=== PATIENT | female | born 1975 | race Caucasian/White ===

== ENCOUNTER 2016-06-16 21:34 | Emergency (ER) | payer OTHER ==
[~2016-06-16 21:34] MED LIST: ATENOLOL100 MG PO; B COMPLEX PO; B-125000 MC1 PO; BACTRIM DS1 TAB PO; BUSPIRONE HCL15 MG PO; CALCIUM CARBON500 MG PO; CELEXA20 MG PO; CEPHALEXIN250 MG PO; CETIRIZINE HCL10 MG PO; CYCLOBENZAPRINE5 MG PO; FERROUS SULFAT325 M1 PO; FLUTICASONE PR50 MCG; MULTI VITAMIN/MINERA PO; PANTOPRAZOLE SO40 MG PO; PERCOCET1 TA1 PO; VITAMIN C PO; VITAMIN C TR500 M1 PO; VITAMIN D-31000 UNIT PO
--- NOTE | 2016-06-17 04:05 | ED NURSING NOTES ---
Clinical Report - Nurses [facility] [address] [place] [address] 06/16/2016 21:35 [id number] Triage time 22:04 Jun 16 2016. Acuity: LEVEL 3. Alert. No acute distress. --22:16 Deirdre Rojas R.N. 22:04 06/16/16. BP: 137/97. HR: 70. RR: 18. O2 saturation: 99%. Temp: 98.2 F. Pain level now 5/10. --22:16 Deirdre Rojas R.N. Chief Complaint: (hemturia). --04:21 Praveena Jeong R.N. Weight: 104.3 kg estimated. Height/Length: 65 inches Estimated. BMI: 38.3. --22:03 Praveena Jeogn R.N. Medications Atenolol Oral 100 mg, daily. BusPIRone HCl Oral (10 mg AM; 15 mg PM). Celexa Oral 20 mg, at bedtime. Loratadine Oral 10 mg, daily. Nasacort AQ Nasal 2 sprays, 2x a day. ProAir HFA Inhalation. Qvar Inhalation (Aerosol Solution 40 mcg/act), as needed. --22:13 Deirdre Rojas R.N. Medication/allergy information source: the patient. --22:16 Deirdre Rojas R.N. Allergies Cipro. Definite Severe(swelling) (of the tongue) Sulfa Antibiotics. Severe(swelling) (of the tongue) --22:13 Deirdre Rojas R.N. History Arrived by private vehicle. Historian: patient. Primary physician ([facility]). ( Hematuria 3-4 days. Very obvious in the toilet, bright red. Wiping it is bright red, like a period. No urgency, no dysuria. However is having right sided back pain. Pt has had stones in the past that required Lithotripsy.). Onset. (3-4 days). She has had hematuria. Treatment RATING EXAMINER: Took ibuprofen. PAST MEDICAL HX: Immunizations: has received pneumonia vaccine; seasonal influenza. SOCIAL HX: Never smoker. No alcohol use or drug use. No infectious disease exposure. FALL RISK ASSESSMENT: Fall risk assessment completed. No fall risk identified. FUNCTIONAL ASSESSMENT: Functional assessment: no impairments noted. LEARNING NEEDS ASSESSMENT: The learning needs assessment revealed no barriers. SKIN INTEGRITY ASSESSMENT: Skin integrity risk assessment completed. No skin integrity risk identified. --22:16 Deirdre Rojas R.N. PROBLEMS: Tendonitis. Back Injury. Sciatica. Back Pain. Fever. Headache. Abdominal Muscle Strain. Hypokalemia. Atypical Chest Pain. Gastroenteritis. Diverticulitis. Ovarian Cyst. Gastroesophageal Reflux Disease. Pancreatitis. Anxiety Reaction. Depression. Asthma. Bronchitis. Lung Disease. Immunizations. Hypertension. UTI - Urinary Tract Infection. Abdominal Pain. Diabetes Mellitus. LNMP - Last Normal Menstrual Period. --22:16 Deirdre Rojas R.N. ADDITIONAL SURGERIES: Adenoidectomy. Appendectomy. Gastric bypass. Hysterectomy. Pannaectomy. Tonsillectomy. --22:16 Deirdre Rojas R.N. Interventions ID band on patient. To room. --22:16 Deirdre Rojas R.N. PHYSICAL ASSESSMENT Ambulatory to room. GENERAL / NEURO / PSYCH: Oriented X 4. RESPIRATORY: Respirations not labored. CVS: Capillary refill less than 2 seconds. SKIN: Skin is warm and dry. --22:44 Deirdre Rojas R.N. NURSING PROGRESS NOTES Clean catch urine collected; sample sent to lab for urinalysis. Specimen labeled in the presence of the patient. --22:23 Deirdre Rojas R.N. Reassurance given. Side rails up. Bed placed in lowest position. Brakes of bed on. --22:44 Deirdre Rojas R.N. Care transferred and report given (SAEID Grissom). --23:39 Deirdre Rojas R.N. 23:35 06/16/2016 Site #1 started via IV in the left forearm with an 22g angiocath, with aseptic technique and good blood return; two attempts. Blood drawn: rainbow set. Labeled in the presence of the patient and sent to the lab. Saline lock flushed with 10 mL saline. --23:45 Praveena Jeong R.N. 23:38 06/16/2016 Started bag #1 1000 mL IV Fluids IV NS (Saline); at 999 mL/hr over 1 hour(s) via site #1 via IV pump. Allergies verified and confirmed 5 rights. IV patency established. IV site checked: no pain, redness, or swelling. IV flushed thoroughly pre- and post-medication administration. --23:45 Praveena Jeong R.N. 23:40 06/16/2016 Toradol IVP 30 mg given over 1 minute(s) via site #1. Allergies verified and confirmed 5 rights. IV patency established. IV site checked: no pain, redness, or swelling. IV flushed thoroughly pre- and post-medication administration. IVP given by RN. --23:45 Praveena Jeong R.N. 00:28 06/17/2016 Morphine IVP 4 mg given over 1 minute(s) via site #1. Allergies verified, confirmed 5 rights and sedative warning given to the patient. IV patency established. IV site checked: no pain, redness, or swelling. IV flushed thoroughly pre- and post-medication administration. IVP given by RN. --00:28 Praveena Jeong R.N. 00:[address] results. --00:47 Prvaeena Jeong R.N. 01:15 06/17/16. BP: 134/80. HR: 62. RR: 18 (unlabored). O2 saturation: 100% on room air. Pain level now: 12/13. --01:21 Praveena Jeong R.N. 01:17 06/17/2016 Dilaudid (HYDROmorphone HCl PF) IVP 1 mg given over 1 minute(s) via site #1. Allergies verified, confirmed 5 rights and sedative warning given to the patient. IV patency established. IV site checked: no pain, redness, or swelling. IV flushed thoroughly pre- and post-medication administration. IVP given by RN. --01:22 Praveena Jeong R.N. 01:49 06/17/2016 Dilaudid IVP Response: pain is improving. (pain down to a 4.). --01:49 Praveena Jeong R.N. 02:00 06/17/16. BP: 121/86. HR: 67. RR: 18 (unlabored). O2 saturation: 98% on room air. Pain level now: 09/13. --02:27 Praveena Jeong R.N. pt waiting for 2nd bag of fluids to be infused, then dispo home. --02:29 Praveena Jeong R.N. 02:20 06/17/2016 Started bag #2 1000 mL IV Fluids IV NS (Saline); at 999 mL/hr over 1 hour(s) via site #1 via IV pump. Allergies verified and confirmed 5 rights. IV patency established. IV site checked: no pain, redness, or swelling. IV flushed thoroughly pre- and post-medication administration. --02:30 Praveena Jeong R.N. 03:00 06/17/16. BP: 115/75. HR: 65. RR: 18 (unlabored). O2 saturation: 96% on room air. --03:28 Praveena Jeong R.N. 03:28 06/17/2016 IV Fluids IV NS Discontinued: bag #2 completed. Total amount infused: 1000 ml mL. IV patency established. IV site checked: no pain, redness, or swelling. IV flushed thoroughly. --03:28 Praveena Jeong R.N. pt up to bathroom unassisted. --03:29 Praveena Jeong R.N. 03:40 06/17/2016 Dilaudid (HYDROmorphone HCl PF) IVP 1 mg given over 1 minute(s) via site #1. Allergies verified, confirmed 5 rights and sedative warning given to the patient. IV patency established. IV site checked: no pain, redness, or swelling. IV flushed thoroughly pre- and post-medication administration. IVP given by RN. --03:46 Praveena Jeong R.N. 03:35 pt was able to urinate without problems. pt c/o pain being a 5. MD notified. --03:47 Praveena Jeong R.N. 00:40 06/17/2016 IV Fluids IV NS Discontinued: bag #1 completed. Total amount infused: 1000 ml mL. IV patency established. IV site checked: no pain, redness, or swelling. IV flushed thoroughly. --04:19 Praveena Jeong R.N. DISPOSITION / DISCHARGE Departure time: 409. Condition at departure: unchanged. No learning barriers present. Discharge instructions provided and reviewed with the patient. Reviewed medication(s). Prescription(s) given to the patient (Zofran, Ibuprofen, Percocet). Patient verbalized understanding. Written instructions provided in [place]. The patient was discharged by the physician. She was discharged home and accompanied by family. She left the Emergency Department ambulatory and via private vehicle. Family member driving. Medication list reviewed and validated with the patient. --04:17 Praveena Jeong R.N. 04:11 06/17/16. BP: 117/76. HR: 68. RR: 18 (unlabored). O2 saturation: 99% on room air. Temp: deferred. Pain level now: 09/13. --04:17 Praveena Jeong R.N. Locked/Released at 06/17/2016 4:22 by Praveena Jeong R.N.
--- NOTE | 2016-06-17 04:05 | ED ORDER SUMMARY ---
..... Patient: AMOR NASCIMENTO OrderSheet [facility] VisitID: [id number] [place] [address] 41y, F Registration Date/Time: 06/16/2016 ORDER SHEET Weight: 104.3 kg (estimated) Allergies: Cipro, Sulfa Antibiotics GENERAL ORDERS: UA-Culture if indicated Urgent (22:22 06/16/2016 SBalde R.N. per protocol) (Ack 22:37 CHagerty ER Vessel Slagman) (23:48 [facility]agerty ER Vessel Slagman) CT Abd/Pel wo Cont Urgent (22:55 06/16/2016 Jude Lo) (Ack 22:59 [facility]agerty ER Vessel Slagman) (23:48 CHagerty ER Vessel Slagman) CBC w Diff Urgent (22:56 06/16/2016 Jude Lo) (Ack 22:59 [facility]ty ER Vessel Slagman) (23:48 CH[facility]ty ER Vessel Slagman) BMP Urgent (22:56 06/16/2016 Jude Lo) (Ack 22:59 CHagerty ER Vessel Slagman) (23:48 CHagerty ER Vessel Slagman) MEDICATION ORDERS: IV FLUIDS: IV NS : initial bolus 1000 mL (1000 mL/hr), then none - for X1 (NOW) (22:56 06/16/2016 Jude Lo) (23:45 HKone R.N.) Toradol IV 30 mg (NOW) (22:56 06/16/2016 Jude Lo) (23:45 HKone R.N.) Morphine IV 4 mg (HIGH ALERT MEDICATION, NOW) (00:19 06/17/2016 Jude Lo) (0:28 HKone R.N.) Dilaudid IV 1 mg (once now. may repeat in 30 minutes for pain > 5/10 ) (00:54 06/17/2016 Jude Lo) (Ack 1:15 HKone R.N.) (1:22 HKone R.N.) IV NS : initial bolus 1000 mL (1000 mL/hr), then none - for X1 (NOW) (02:11 06/17/2016 Jude Lo) (Ack 2:20 HKone R.N.) (2:30 HKone R.N.) ORDER SHEET NOTES: [Electronically signed by Praveena Jeong R.N. (04:22 06/17/2016)] [Electronically signed by Aydin Hathaway Dr. (04:35 06/17/2016)] [Electronically locked/signed by Praveena Jeong R.N. (04:22 06/17/2016)]
--- NOTE | 2016-06-17 04:05 | ED CLINICAL REPORT ---
Clinical Report - Physicians/Mid Levels [facility] [address] [place] [address] 06/16/2016 21:35 Patient: AMOR NASCIMENTO Arrived- By private vehicle. Historian- patient. HISTORY OF PRESENT ILLNESS Chief Complaint: FLANK PAIN. At its maximum, severity described as moderate. When seen in the E.D., severity described as moderate. Modifying factors- worsened by movement. Relieved by rest. This started today and is still present and worsening. It was abrupt in onset and has been constant but is not gone now. It is described as sharp. No radiation. It is described as located in the right flank. The patient has had nausea and vomiting. No loss of appetite or diarrhea. No additional abdominal pain. No recent travel. Similar symptoms previously: Once. ( had kidney stone). Recent medical care: Not recently seen/assessed. REVIEW OF SYSTEMS All systems otherwise negative, except as recorded above. PAST HISTORY See nurses notes. SOCIAL HISTORY Never smoker. No alcohol use or drug use. No recent travel. Is a local resident. FAMILY HISTORY (no family history of aortic dissection). ADDITIONAL NOTES The nursing notes have been reviewed. PHYSICAL EXAM Vital Signs: 06/16/2016 22:04 BP: 137/97. HR: 70. RR: 18. O2 saturation: 99%. Temp: 98.2 F. Blood pressure normal. Oxygen saturation normal. Appearance: Alert. Oriented X3. No acute distress. Eyes: Pupils equal, round and reactive to light. Eyes normal inspection. ENT: Ears normal. Nose normal. Pharynx normal. Neck: Normal inspection. CVS: Normal heart rate and rhythm. Heart sounds normal. Pulses normal. No decreased pulses. Respiratory: No respiratory distress. Breath sounds normal. Chest nontender. Abdomen: Soft and nontender. Bowel sounds normal. No organomegaly. No mass. Femoral pulses equal. Back: Moderate CVA tenderness on the right. Skin: Skin warm and dry. Normal skin color. No rash. Normal skin turgor. Extremities: Extremities exhibit normal ROM. No lower extremity edema. Neuro: Oriented X 3. No motor deficit. No sensory deficit. LABS, X-RAYS, AND EKG Abdominal CT: Left nephrolithiasis. mild left hydronephrosis to the level of what appears to e the irregular stone or cluster of 2 adjacent stones in the proximal left ureter. Study type: abdomen and pelvis. Abdominal CT performed without contrast. The study was independently viewed by me and interpreted by the radiologist. The study was discussed with the radiologist (via fax). Laboratory Tests: UA-Culture if indicated: (DEVIN: 06/16/2016 22:28) ( MsgRcvd 06/16/2016 22:44) Final results Test Result Flag Units (Reference) URINE COLOR YELLOW URINE APPEARANCE SL CLOUDY URINE GLUCOSE NEGATIVE (NEGATIVE) URINE BILIRUBIN NEGATIVE (NEGATIVE) URINE KETONE NEGATIVE (NEGATIVE) URINE SPECIFIC GRAVITY 1.020 (1.010-1.030) URINE PH 7.0 (5.0-8.0) URINE PROTEIN NEGATIVE (NEGATIVE) URINE UROBILINOGEN 1.0 EU/dL (0.2-1.0) URINE NITRITE NEGATIVE (NEGATIVE) URINE BLOOD 3+ (NEGATIVE) URINE LEUK ESTERASE NEGATIVE (NEGATIVE) URINE RBC >100 rbc/hpf (0-1) URINE WBC 0-1 wbc/hpf (0-1) URINE EPITHELIAL CELLS 1-3 EPI/hpf (0-5) URINE BACTERIA NONE SEEN (NONE SEEN) URINE COMMENT CULT NOT INDICATED URINE CULTURES ARE SET-UP BASED ON THE FOLLOWING CRITERIA:POSITIVE NITRITEPOSITIVE LEUKOCYTE ESTERASEGREATER THAN 10 WHITE BLOOD CELLSMODERATE (2+) OR GREATER BACTERIA CBC w Diff: (DEVIN: 06/16/2016 23:35) ( MsgRcvd 06/16/2016 23:45) Final results Test Result Flag Units (Reference) WHITE BLOOD COUNT 11.7 H K/uL (4.5-11.5) RED BLOOD COUNT 4.63 M/uL (4.00-5.20) HEMOGLOBIN 13.6 gm/dL (12.0-16.0) HEMATOCRIT 43.3 % (36.0-46.0) MEAN CELL VOLUME 94 fL (80-100) MEAN CORPUSCULAR HGB 29 pg (26-34) MEAN CORPUSCULAR HGB CONC 31 g/dL (31-37) RED CELL DISTRIBUTION WIDTH 14.4 % (11.6-14.8) PLATELET COUNT 234 K/uL (150-400) LYMPH % 41.9 H % (25-40) MONO % 4.2 % (3-14) GRANULOCYTE % 53.9 (53-90) BMP: (DEVIN: 06/16/2016 23:35) ( MsgRcvd 06/16/2016 23:51) Final results Test Result Flag Units (Reference) GLUCOSE 88 mg/dL (70-110) BUN 25 H mg/dL (7-18) CREATININE 0.6 mg/dL (0.6-1.3) Estimated GFR >60 mL/min Estimated GFR- >60 mL/min Note: Persistent reduction over 3 months in eGFR<60 mL/min/1.73 m2 defines CKD. Patients with eGFR values>=60 mL/min/1.73 m2 may also have CKD if evidence ofpersistent proteinuria. Additional information may be foundat [email or web address].org. SODIUM 143 mmol/L (136-145) POTASSIUM 3.0 L mmol/L (3.5-5.1) CHLORIDE 102 mmol/L (98-107) CARBON DIOXIDE 36 H mmol/L (21-32) CALCIUM 9.2 mg/dL (8.5-10.1) . PROGRESS AND PROCEDURES Course of Care: the patient is a 41-year-old female with past medical history significant for hysterectomy secondary to endometriosis and nephrolithiasis presenting for evaluation of right-sided flank pain that started today. The patient reports also having gross hematuria. Patient reports that the pain is similar to prior episodes. Patient is agreeable to workup with CT scan, laboratory test and urinalysis. Patient is nontoxic in appearance. No fever. Do not feel patient has abdominal aortic aneurysm. Furthermore concerning pathology. Patient's CT scan as noted for confirmation of stone in the right ureter. Patient's urinalysis is also remarkable for a large amount of blood in the urinalysis. At this time will be focusing on pain control for possible disposition and care at home. Patient is agreeable to the treatment and plan. If we're unable to get the patient's pain adequately controlled here in the emergency department, will consideradmission to the hospital and consult of urology. Patient's pain was adequately controlled here in the emergency department. Patient is able to urinate spontaneously after providing IV hydration. I discussion the patient regards to workup, diagnosis, FOLLOW-UP, AND RETURN PRECAUTIONS. ALL QUESTIONS ANSWERED. THE PATIENT EXPRESSED UNDERSTANDING OF THESE INSTRUCTIONS AND WAS AGREEABLE TO THAT. Disposition: Discharged. Condition: good. CLINICAL IMPRESSION 06/16/2016 22:04 BP: 137/97. HR: 70. RR: 18. O2 saturation: 99%. Temp: 98.2 F. Gross hematuria (acute). Blood pressure normal. Oxygen saturation normal. Ureterolithiasis (multiple stones) in the left ureter (acute). Essential hypertension. Left renal colic in the left ureter with multiple calculi with hydronephrosis (acute). INSTRUCTIONS Warnings: GENERAL WARNINGS: Return or contact your physician immediately if your condition worsens or changes unexpectedly, if not improving as expected, or if other problems arise. SPECIFICALLY, return if you develop pain, fever, vomiting, the inability to keep fluids down, blood in vomitus, blood in diarrhea, fainting or lightheadedness. Your Current Medications: CONTINUE TAKING THE FOLLOWING MEDICATIONS: Atenolol Oral : 100 mg daily. BusPIRone HCl Oral : 10 mg AM; 15 mg PM. Celexa Oral : 20 mg at bedtime. Loratadine Oral : 10 mg daily. Nasacort AQ Nasal : 2 sprays 2x a day. ProAir HFA Inhalation. Qvar Inhalation : Aerosol Solution 40 mcg/act, prn. Prescription Medications: Zofran (orally disintegrating tablets) 4 mg: take 1 orally every 8 hours as needed for nausea and vomiting. Dispense ten (10). No refill. Substitution is permissible. Motrin 600 mg tablets: take 1 tablet orally every 6 hours. Dispense thirty (30). No refill. Substitution is permissible. (PRN pain, kidney tube spasm, swelling) Percocet 5 mg/325 mg: take 1-2 tablets orally every 6 hours as needed for pain. Dispense twenty (20). No refill. Substitution is permissible. Follow-up: Return to the emergency department as needed. Follow up with your doctor in three days. Reason for referral: recheck today's concerns. Summary of care provided to patient via paper. Screening today revealed the patient's blood pressure to be in the normal range. The patient should follow up with a primary care provider for blood pressure management. Understanding of the discharge instructions verbalized by patient. Follow-up with: Sammy Akers MD, Urology, , [address] [facility] , [place], [id number] Follow up in one week. Reason for referral: recheck today's concerns. Summary of care provided to patient via paper. (Electronically signed by Aydin Hathaway Dr. 06/17/2016 4:35)
--- NOTE | 2016-06-17 04:05 | ED ORDER SUMMARY ---
..... Patient: AMOR NASCIMENTO OrderSheet [facility] VisitID: [id number] [place] [address] 41y, F Registration Date/Time: 06/16/2016 ORDER SHEET Weight: 104.3 kg (estimated) Allergies: Cipro, Sulfa Antibiotics GENERAL ORDERS: UA-Culture if indicated Urgent (22:22 06/16/2016 SBalde R.N. per protocol) (Ack 22:37 [facility] ER Extension Service Supervisor) (23:48 [facility] Extension Service Supervisor) CT Abd/Pel wo Cont Urgent (22:55 06/16/2016 Jude Lo) (Ack 22:59 [facility] Service Supervisor) (23:48 [facility] ER Extension Service Supervisor) CBC w Diff Urgent (22:56 06/16/2016 Jude Lo) (Ack 22:59 [facility] Extension Service Supervisor) (23:48 CH[facility]ty ER Extension Service Supervisor) BMP Urgent (22:56 06/16/2016 Jude Lo) (Ack 22:59 CH[facility] ER Extension Service Supervisor) (23:48 CHagerty ER Extension Service Supervisor) MEDICATION ORDERS: IV FLUIDS: IV NS : initial bolus 1000 mL (1000 mL/hr), then none - for X1 (NOW) (22:56 06/16/2016 Jude Lo) (23:45 HKone R.N.) Toradol IV 30 mg (NOW) (22:56 06/16/2016 Jude Lo) (23:45 HKone R.N.) Morphine IV 4 mg (HIGH ALERT MEDICATION, NOW) (00:19 06/17/2016 Jude Lo) (0:28 HKone R.N.) Dilaudid IV 1 mg (once now. may repeat in 30 minutes for pain > 5/10 ) (00:54 06/17/2016 Jude Lo) (Ack 1:15 HKone R.N.) (1:22 HKone R.N.) IV NS : initial bolus 1000 mL (1000 mL/hr), then none - for X1 (NOW) (02:11 06/17/2016 Jude Lo) (Ack 2:20 HKone R.N.) (2:30 HKone R.N.) ORDER SHEET NOTES: [Electronically signed by Praveena Jeong R.N. (04:22 06/17/2016)] [Electronically signed by Aydin Hathaway Dr. (04:35 06/17/2016)] [Electronically locked/signed by Praveena Jeong R.N. (04:22 06/17/2016)]
--- NOTE | 2016-06-17 04:36 | ED MED RECONCILIATION SUMMARY ---
Patient: AMOR NASCIMENTO Medication Reconciliation Report [facility] VisitID: [id number] [place] [address] 41y, F Registration Date/Time: 06/16/2016 Weight: 104.3 kg Height/Length: 65 in. BMI: 38.3 ALLERGIES: Cipro, Sulfa Antibiotics The patient's Home Medications are listed below: CONTINUE TAKING THE FOLLOWING MEDICATIONS: Atenolol Oral 100 mg, daily BusPIRone HCl Oral, 10 mg AM; 15 mg PM Celexa Oral 20 mg, at bedtime Loratadine Oral 10 mg, daily Nasacort AQ Nasal 2 sprays, 2x a day ProAir HFA Inhalation Qvar Inhalation (40 mcg/act) The source(s) of the original Home Medication information: patient The following Medications were given to the patient in the Emergency Department: IV NS IV Fluids bolus 0, then 999 mL/hr, administered: 06/16/2016 11:38:00 PM Toradol [IVP] IVP 30 mg, administered: 06/16/2016 11:40:00 PM Morphine [IVP] IVP 4 mg, administered: 06/17/2016 12:28:00 AM Dilaudid [IVP] IVP 1 mg, administered: 06/17/2016 1:17:00 AM IV NS IV Fluids bolus 0, then 999 mL/hr, administered: 06/17/2016 2:20:00 AM Dilaudid [IVP] IVP 1 mg, administered: 06/17/2016 3:40:00 AM The following Medications were prescribed to the patient: Zofran (orally disintegrating tablets) 4 mg: take 1 orally every 8 hours as needed for nausea and vomiting. Dispense ten (10). No refill. Substitution is permissible. -- Aydin Hathaway Dr. Motrin 600 mg tablets: take 1 tablet orally every 6 hours. Dispense thirty (30). No refill. Substitution is permissible.(PRN pain, kidney tube spasm, swelling) -- Aydin Hathaway Dr. Percocet 5 mg/325 mg: take 1-2 tablets orally every 6 hours as needed for pain. Dispense twenty (20). No refill. Substitution is permissible. -- Aydin Hathaway Dr.
--- NOTE | 2016-06-17 04:36 | ED MAR SUMMARY ---
..... Medication Administration Record [facility] [address] [place] [address] Patient: AMOR NASCIMENTO Visit ID: [id number] 41y, F Weight: 104.3 kg Height/Length: 65 in BMI: 38.3 ALLERGIES: Cipro, Sulfa Antibiotics Start 23:38 06/16/2016 Praveena Jeong R.N., Stop 00:40 06/17/2016 Praveena Jeong R.N. Medication Administered: IV NS (SALINE), Dose: IV Fluids over 1 hour(s), Rate: 999 mL/hr, Dispensed: 1000 mL bag, Site: #1 left forearm. Medication Ordered: IV NS : initial bolus 1000 mL (1000 mL/hr), then none - for X1 (NOW). Given 23:40 06/16/2016 Praveena Jeong R.N. Medication Administered: TORADOL [IVP], Dose: 30 mg IVP over 1 minute(s), Site: #1 left forearm. Medication Ordered: Toradol IV 30 mg (NOW). Given 00:28 06/17/2016 Praveena Jeong R.N. Medication Administered: MORPHINE [IVP], Dose: 4 mg IVP over 1 minute(s), Site: #1 left forearm. Medication Ordered: Morphine IV 4 mg (HIGH ALERT MEDICATION, NOW). Given 01:17 06/17/2016 Praveena Jeong R.N. Medication Administered: DILAUDID [IVP] (HYDROMORPHONE HCL PF), Dose: 1 mg IVP over 1 minute(s), Site: #1 left forearm. Medication Ordered: Dilaudid IV 1 mg (once now. may repeat in 30 minutes for pain > 5/10 ). Start 02:20 06/17/2016 Praveena Jeong R.N., Stop 03:28 06/17/2016 Praveena Jeong R.N. Medication Administered: IV NS (SALINE), Dose: IV Fluids over 1 hour(s), Rate: 999 mL/hr, Dispensed: 1000 mL bag, Site: #1 left forearm. Medication Ordered: IV NS : initial bolus 1000 mL (1000 mL/hr), then none - for X1 (NOW). Given 03:40 06/17/2016 Praveena Jeong R.N. Medication Administered: DILAUDID [IVP] (HYDROMORPHONE HCL PF), Dose: 1 mg IVP over 1 minute(s), Site: #1 left forearm. Medication Ordered: Dilaudid IV 1 mg (once now. may repeat in 30 minutes for pain > 5/10 ).
--- NOTE | 2016-06-17 04:36 | ED DISCHARGE INSTRUCTIONS ---
Patient: AMOR NASCIMENTO General Instructions [facility] VisitID: [id number] [place] [address] 41y, F Registration Date/Time: 06/16/2016 06/16/2016 22:04 BP: 137/97. HR: 70. RR: 18. O2 saturation: 99%. Temp: 98.2 F. Gross hematuria (acute). Blood pressure normal. Oxygen saturation normal. Ureterolithiasis (multiple stones) in the left ureter (acute). Essential hypertension. Left renal colic in the left ureter with multiple calculi with hydronephrosis (acute). INSTRUCTIONS Warnings: GENERAL WARNINGS: Return or contact your physician immediately if your condition worsens or changes unexpectedly, if not improving as expected, or if other problems arise. SPECIFICALLY, return if you develop pain, fever, vomiting, the inability to keep fluids down, blood in vomitus, blood in diarrhea, fainting or lightheadedness. Your Current Medications: CONTINUE TAKING THE FOLLOWING MEDICATIONS: Atenolol Oral : 100 mg daily. BusPIRone HCl Oral : 10 mg AM; 15 mg PM. Celexa Oral : 20 mg at bedtime. Loratadine Oral : 10 mg daily. Nasacort AQ Nasal : 2 sprays 2x a day. ProAir HFA Inhalation. Qvar Inhalation : Aerosol Solution 40 mcg/act, prn. Prescription Medications: Zofran (orally disintegrating tablets) 4 mg: take 1 orally every 8 hours as needed for nausea and vomiting. Dispense ten (10). No refill. Substitution is permissible. Motrin 600 mg tablets: take 1 tablet orally every 6 hours. Dispense thirty (30). No refill. Substitution is permissible. (PRN pain, kidney tube spasm, swelling) Percocet 5 mg/325 mg: take 1-2 tablets orally every 6 hours as needed for pain. Dispense twenty (20). No refill. Substitution is permissible. Follow-up: Return to the emergency department as needed. Follow up with your doctor in three days. Reason for referral: recheck today's concerns. Summary of care provided to patient via paper. Screening today revealed the patient's blood pressure to be in the normal range. The patient should follow up with a primary care provider for blood pressure management. Understanding of the discharge instructions verbalized by patient. Follow-up with: Sammy Akers MD, Urology, , [address] [facility] [place], [id number] Follow up in one week. Reason for referral: recheck today's concerns. Summary of care provided to patient via paper. ADDITIONAL INFORMATION Kidney Stone (W/ Colic) The sharp cramping pain and nausea/vomiting that you have is due to a small stone which has formed in the kidney and is now passing down a narrow tube (ureter) on its way to your bladder. Once it reaches your bladder, the pain will stop. The stone may pass in your urine stream in one piece. [The size may be 1/16" to 1/4" (1-6mm)]. Or, the stone may also break up into antonio fragments which you may not even notice. Once you have had a kidney stone, you are at risk for developing another one in the future. Home Care: Drink plenty of fluids (at least 8 to 10 glasses of water a day). Most stones will pass on their own, but may take from a few hours to a few days. Sometimes the stone is too large to pass by itself and special methods will have to be used to remove the stone. Each time you urinate, do so in a jar. Pour the urine from the jar through the strainer and into the toilet. Continue doing this until 24 hours after your pain stops. By then, if there was a kidney stone, it should pass from your bladder. Some stones dissolve into sand-like particles and pass right through the strainer. In that case, you wont ever see a stone. Save any stone that you find in the strainer and bring it to your doctor for analysis. It may be possible to prevent certain types of stones from forming. Therefore, it is important to know what kind of stone you have. Try to stay as active as possible since this will help the stone pass. Do not stay in bed unless your pain prevents you from getting up. You may notice a red, pink or brown color to your urine. This is normal while passing a kidney stone. Follow Up with your doctor or return to this facility if the pain lasts more than 48 hours. Get Prompt Medical Attention if any of the following occur: Pain that is not controlled by the medicine given Repeated vomiting or unable to keep down fluids Weakness, dizziness or fainting Fever of 100.4F (38C) or higher, or as directed by your healthcare provider Passage of solid red or brown urine (can't see through it) or urine with lots of blood clots Unable to pass urine for 8 hours and increasing bladder pressure High Blood Pressure --Established High Blood Pressure (Hypertension) is a chronic disease. The cause is unknown in most cases. It can usually be controlled with lifestyle changes and/or medicines. Symptoms of high blood pressure may include headache, dizziness, visual changes, chest pain and shortness of breath. Sometimes it causes no symptoms at all. However, even if there are no symptoms, untreated high blood pressure increases the risk of heart attack, also known as acute myocardial infarction, or AMI, and stroke. It is a serious health risk and should not be ignored. A normal blood pressure is 120/80 or less. The first (top) number is the "systolic" pressure. The second (bottom) number is the "diastolic" pressure. Hypertension exists when either the top number is 140 or higher, OR the bottom number is 90 or higher on repeated measurements. Home Care: All patients with high blood pressure should do the following to lower their pressure. If you are on medicines, then these methods may reduce or eliminate your need for medicines in the future. Begin a weight loss program if you are overweight. Reduce your salt intake. Avoid high salt foods (olives, pickles, smoked meats, salted potato chips, etc.). Do not add salt to your food at the table. Use only small amounts of salt when cooking. Begin an exercise program. Discuss with your doctor what type of exercise program would be best for you. It doesn't have to be difficult. Even brisk walking for 20 minutes three times a week is a good form of exercise. Avoid medicines which contain heart stimulants. This includes many cold and sinus decongestant pills and sprays as well as diet pills. Check the warnings about hypertension on the label. Stimulants such as amphetamine or cocaine could be lethal for someone with hypertension. Never take these. Limit your caffeine intake or switch to caffeine-free products. Stop smoking. If you are a long-time smoker, this can be hard. Enroll in a stop-smoking program to improve your chance of success. Learning how to handle stress better is an important part of any program to lower blood pressure. Learn about relaxation methods such as meditation, yoga or biofeedback. If medicines were prescribed, take them exactly as directed. Missing doses may cause your blood pressure get out of control. Consider buying an automatic blood pressure machine (available at most pharmacies). Use this to monitor your blood pressure at home and report the results to your doctor. Follow Up: Regular visits to your own physician for blood pressure checks and medicine adjustment is an important part of your care. Make a follow-up appointment as directed by our staff. Get Prompt Medical Attention if any of the following occur: Chest pain or shortness of breath Severe headache Throbbing or rushing sound in the ears Nosebleed Sudden severe abdominal pain Extreme drowsiness, confusion or fainting Dizziness or vertigo (dizziness with spinning sensation) Weakness of an arm or leg or one side of the face Difficulty with speech or vision Blood In The Urine Blood in the urine ("hematuria") has many possible causes. If it occurs after an injury (such as a car accident or fall), it is most often a sign of bruising to the kidney or bladder. Common medical causes of blood in the urine include urinary tract infection, kidney stone, inflammation, tumors, or certain other diseases of the kidney or bladder. Menstruation can cause blood to appear in the urine sample, although it is not coming from the urinary tract. If only a trace amount of blood is present, it will show up on the urine test, even though the urine may be yellow and not pink or red. This may occur with any of the above conditions, as well as heavy exercise or high fever. In this case, your doctor may want to repeat the urine test on another day. This will show if the blood is still present. If so, then other tests can be done to find out the cause. Home Care: If your urine does not appear bloody (pink, brown or red) then you do not need to restrict your activity in any way. If you can see blood in your urine, rest and avoid heavy exertion until your next exam. Do not use aspirin or anti-inflammatory medicine like ibuprofen (Motrin, Advil) or naproxen (Naprosyn, Aleve). These thin the blood and may increase bleeding. Follow Up with your doctor or as advised by our staff. If you were injured and had blood in your urine, you should have a repeat urine test in 1-2 days. Contact your doctor or return to this facility for this test. [NOTE: A radiologist will review any X-rays that were taken. We will notify you of any new findings that may affect your care.] Get Prompt Medical Attention if any of the following occur: Bright red blood or blood clots in the urine (if a new symptom) Weakness, dizziness or fainting New groin, abdominal or back pain Fever of 100.4F (38C) or higher, or as directed by your healthcare provider Repeated vomiting Bleeding from nose, gums or easy bruising Ondansetron Oral disintegrating tablet What is this medicine? ONDANSETRON (on SUMI se keo) is used to treat nausea and vomiting caused by chemotherapy. It is also used to prevent or treat nausea and vomiting after surgery. How should I use this medicine? These tablets are made to dissolve in the mouth. Do not try to push the tablet through the foil backing. With dry hands, peel away the foil backing and gently remove the tablet. Place the tablet in the mouth and allow it to dissolve, then swallow. While you may take these tablets with water, it is not necessary to do so. Talk to your fruit trimmer regarding the use of this medicine in children. Special care may be needed. What side effects may I notice from receiving this medicine? Side effects that you should report to your doctor or health intensive care medicine specialist as soon as possible: allergic reactions like skin rash, itching or hives, swelling of the face, lips, or tongue breathing problems dizziness fast or irregular heartbeat feeling faint or lightheaded, falls fever and chills swelling of the hands and feet tightness in the chest Side effects that usually do not require medical attention (report to your doctor or health intensive care medicine specialist if they continue or are bothersome): constipation or diarrhea headache What may interact with this medicine? Do not take this medicine with any of the following medications: -apomorphine -cisapride -dofetilide -dronedarone -pimozide -thioridazine -ziprasidone This medicine may also interact with the following medications: -carbamazepine -phenytoin -rifampicin -tramadol -other medicines that prolong the QT interval (cause an abnormal heart rhythm) What if I miss a dose? If you miss a dose, take it as soon as you can. If it is almost time for your next dose, take only that dose. Do not take double or extra doses. Where should I keep my medicine? Keep out of the reach of children. Store between 2 and 30 degrees C (36 and 86 degrees F). Throw away any unused medicine after the expiration date. What should I tell my health care provider before I take this medicine? They need to know if you have any of these conditions: heart disease history of irregular heartbeat liver disease low levels of magnesium or potassium in the blood an unusual or allergic reaction to ondansetron, granisetron, other medicines, foods, dyes, or preservatives or trying to get breast-feeding What should I watch for while using this medicine? Check with your doctor or health intensive care medicine specialist as soon as you can if you have any sign of an allergic reaction. Ibuprofen Oral tablet What is this medicine? IBUPROFEN (eye BYOO proe fen) is a non-steroidal anti-inflammatory drug (NSAID). It is used for dental pain, fever, headaches or migraines, osteoarthritis, rheumatoid arthritis, or painful monthly periods. It can also relieve minor aches and pains caused by a cold, flu, or sore throat. How should I use this medicine? Take this medicine by mouth with a glass of water. Follow the directions on the prescription label. Take this medicine with food if your stomach gets upset. Try to not lie down for at least 10 minutes after you take the medicine. Take your medicine at regular intervals. Do not take your medicine more often than directed. A special MedGuide will be given to you by the pharmacist with each prescription and refill. Be sure to read this information carefully each time. Talk to your fruit trimmer regarding the use of this medicine in children. Special care may be needed. What side effects may I notice from receiving this medicine? Side effects that you should report to your doctor or health intensive care medicine specialist as soon as possible: allergic reactions like skin rash, itching or hives, swelling of the face, lips, or tongue black or bloody stools, blood in the urine or in vomit breathing problems changes in vision chest pain general ill feeling or flu-like symptoms nausea or vomiting redness, blistering, peeling or loosening of the skin, including inside the mouth slurred speech or weakness on one side of the body stomach pain unexplained weight gain or swelling unusually weak or tired yellowing of eyes or skin Side effects that usually do not require medical attention (report to your doctor or health intensive care medicine specialist if they continue or are bothersome): constipation or diarrhea dizziness gas or heartburn stomach upset What may interact with this medicine? Do not take this medicine with any of the following medications: cidofovir ketorolac methotrexate pemetrexed This medicine may also interact with the following medications: alcohol aspirin diuretics lithium other drugs for inflammation like prednisone warfarin What if I miss a dose? If you miss a dose, take it as soon as you can. If it is almost time for your next dose, take only that dose. Do not take double or extra doses. Where should I keep my medicine? Keep out of the reach of children. Store at room temperature between 15 and 30 degrees C (59 and 86 degrees F). Keep container tightly closed. Throw away any unused medicine after the expiration date. What should I tell my health care provider before I take this medicine? They need to know if you have any of these conditions: asthma cigarette smoker drink more than 3 alcohol containing drinks a day heart disease or circulation problems such as heart failure or leg edema (fluid retention) high blood pressure kidney disease liver disease stomach bleeding or ulcers an unusual or allergic reaction to ibuprofen, aspirin, other NSAIDS, other medicines, foods, dyes, or preservatives or trying to get breast-feeding What should I watch for while using this medicine? Tell your doctor or healthcare professional if your symptoms do not start to get better or if they get worse. This medicine does not prevent heart attack or stroke. In fact, this medicine may increase the chance of a heart attack or stroke. The chance may increase with longer use of this medicine and in people who have heart disease. If you take aspirin to prevent heart attack or stroke, talk with your doctor or health intensive care medicine specialist. Do not take other medicines that contain aspirin, ibuprofen, or naproxen with this medicine. Side effects such as stomach upset, nausea, or ulcers may be more likely to occur. Many medicines available without a prescription should not be taken with this medicine. This medicine can cause ulcers and bleeding in the stomach and intestines at any time during treatment. Ulcers and bleeding can happen without warning symptoms and can cause . To reduce your risk, do not smoke cigarettes or drink alcohol while you are taking this medicine. You may get drowsy or dizzy. Do not drive, use machinery, or do anything that needs mental alertness until you know how this medicine affects you. Do not stand or sit up quickly, especially if you are an older patient. This reduces the risk of dizzy or fainting spells. This medicine can cause you to bleed more easily. Try to avoid damage to your teeth and gums when you brush or floss your teeth. Oxycodone Hydrochloride, Acetaminophen Oral tablet What is this medicine? ACETAMINOPHEN; OXYCODONE (a set a LUANNE chata fen; ox i KOE done) is a pain reliever. It is used to treat mild to moderate pain. How should I use this medicine? Take this medicine by mouth with a full glass of water. Follow the directions on the prescription label. Take your medicine at regular intervals. Do not take your medicine more often than directed. Talk to your fruit trimmer regarding the use of this medicine in children. Special care may be needed. Patients over 65 years old may have a stronger reaction and need a smaller dose. What side effects may I notice from receiving this medicine? Side effects that you should report to your doctor or health intensive care medicine specialist as soon as possible: allergic reactions like skin rash, itching or hives, swelling of the face, lips, or tongue breathing difficulties, wheezing confusion light headedness or fainting spells severe stomach pain yellowing of the skin or the whites of the eyes Side effects that usually do not require medical attention (report to your doctor or health intensive care medicine specialist if they continue or are bothersome): dizziness drowsiness nausea vomiting What may interact with this medicine? alcohol antihistamines barbiturates like amobarbital, butalbital, butabarbital, methohexital, pentobarbital, phenobarbital, thiopental, and secobarbital benztropine drugs for bladder problems like solifenacin, trospium, oxybutynin, tolterodine, hyoscyamine, and methscopolamine drugs for breathing problems like ipratropium and tiotropium drugs for certain stomach or intestine problems like propantheline, homatropine methylbromide, glycopyrrolate, atropine, belladonna, and dicyclomine general anesthetics like etomidate, ketamine, nitrous oxide, propofol, desflurane, enflurane, halothane, isoflurane, and sevoflurane medicines for depression, anxiety, or psychotic disturbances medicines for sleep muscle relaxants naltrexone narcotic medicines (opiates) for pain phenothiazines like perphenazine, thioridazine, chlorpromazine, mesoridazine, fluphenazine, prochlorperazine, promazine, and trifluoperazine scopolamine tramadol trihexyphenidyl What if I miss a dose? If you miss a dose, take it as soon as you can. If it is almost time for your next dose, take only that dose. Do not take double or extra doses. Where should I keep my medicine? Keep out of the reach of children. This medicine can be abused. Keep your medicine in a safe place to protect it from theft. Do not share this medicine with anyone. Selling or giving away this medicine is dangerous and against the law. Store at room temperature between 20 and 25 degrees C (68 and 77 degrees F). Keep container tightly closed. Protect from light. This medicine may cause accidental overdose and if it is taken by other adults, children, or pets. Flush any unused medicine down the toilet to reduce the chance of harm. Do not use the medicine after the expiration date. What should I tell my health care provider before I take this medicine? They need to know if you have any of these conditions: brain tumor Crohn's disease, inflammatory bowel disease, or ulcerative colitis drink more than 3 alcohol containing drinks per day drug abuse or addiction head injury heart or circulation problems kidney disease or problems going to the bathroom liver disease lung disease, asthma, or breathing problems an unusual or allergic reaction to acetaminophen, oxycodone, other opioid analgesics, other medicines, foods, dyes, or preservatives or trying to get breast-feeding What should I watch for while using this medicine? Tell your doctor or health intensive care medicine specialist if your pain does not go away, if it gets worse, or if you have new or a different type of pain. You may develop tolerance to the medicine. Tolerance means that you will need a higher dose of the medication for pain relief. Tolerance is normal and is expected if you take this medicine for a long time. Do not suddenly stop taking your medicine because you may develop a severe reaction. Your body becomes used to the medicine. This does NOT mean you are addicted. Addiction is a behavior related to getting and using a drug for a non-medical reason. If you have pain, you have a medical reason to take pain medicine. Your doctor will tell you how much medicine to take. If your doctor wants you to stop the medicine, the dose will be slowly lowered over time to avoid any side effects. You may get drowsy or dizzy. Do not drive, use machinery, or do anything that needs mental alertness until you know how this medicine affects you. Do not stand or sit up quickly, especially if you are an older patient. This reduces the risk of dizzy or fainting spells. Alcohol may interfere with the effect of this medicine. Avoid alcoholic drinks. There are different types of narcotic medicines (opiates) for pain. If you take more than one type at the same time, you may have more side effects. Give your health care provider a list of all medicines you use. Your doctor will tell you how much medicine to take. Do not take more medicine than directed. Call emergency for help if you have problems breathing. The medicine will cause constipation. Try to have a bowel movement at least every 2 to 3 days. If you do not have a bowel movement for 3 days, call your doctor or health intensive care medicine specialist. Do not take Tylenol (acetaminophen) or medicines that have acetaminophen with this medicine. Too much acetaminophen can be very dangerous. Many nonprescription medicines contain acetaminophen. Always read the labels carefully to avoid taking more acetaminophen. You have been given the following additional information: Kidney Stone W/ Colic Hypertension, Established Hematuria Ondansetron Oral disintegrating tablet Ibuprofen Oral tablet Oxycodone Hydrochloride, Acetaminophen Oral tablet (Electronically signed by Aydin Hathaway Dr. 06/17/2016 4:35)
--- NOTE | 2016-06-17 04:36 | ED MAR SUMMARY ---
..... Medication Administration Record [facility] [address] [place] [address] Patient: AMOR NASCIMENTO Visit ID: [id number] 41y, F Weight: 104.3 kg Height/Length: 65 in BMI: 38.3 ALLERGIES: Cipro, Sulfa Antibiotics Start 23:38 06/16/2016 Praveena Jeong R.N., Stop 00:40 06/17/2016 Praveena Jeong R.N. Medication Administered: IV NS (SALINE), Dose: IV Fluids over 1 hour(s), Rate: 999 mL/hr, Dispensed: 1000 mL bag, Site: #1 left forearm. Medication Ordered: IV NS : initial bolus 1000 mL (1000 mL/hr), then none - for X1 (NOW). Given 23:40 06/16/2016 Praveena Jeong R.N. Medication Administered: TORADOL [IVP], Dose: 30 mg IVP over 1 minute(s), Site: #1 left forearm. Medication Ordered: Toradol IV 30 mg (NOW). Given 00:28 06/17/2016 Praveena Jeong R.N. Medication Administered: MORPHINE [IVP], Dose: 4 mg IVP over 1 minute(s), Site: #1 left forearm. Medication Ordered: Morphine IV 4 mg (HIGH ALERT MEDICATION, NOW). Given 01:17 06/17/2016 Praveena Jeong R.N. Medication Administered: DILAUDID [IVP] (HYDROMORPHONE HCL PF), Dose: 1 mg IVP over 1 minute(s), Site: #1 left forearm. Medication Ordered: Dilaudid IV 1 mg (once now. may repeat in 30 minutes for pain > 5/10 ). Start 02:20 06/17/2016 Praveena Jeong R.N., Stop 03:28 06/17/2016 Praveena Jeong R.N. Medication Administered: IV NS (SALINE), Dose: IV Fluids over 1 hour(s), Rate: 999 mL/hr, Dispensed: 1000 mL bag, Site: #1 left forearm. Medication Ordered: IV NS : initial bolus 1000 mL (1000 mL/hr), then none - for X1 (NOW). Given 03:40 06/17/2016 Praveena Jeong R.N. Medication Administered: DILAUDID [IVP] (HYDROMORPHONE HCL PF), Dose: 1 mg IVP over 1 minute(s), Site: #1 left forearm. Medication Ordered: Dilaudid IV 1 mg (once now. may repeat in 30 minutes for pain > 5/10 ).
--- NOTE | 2016-06-17 04:36 | ED MED RECONCILIATION SUMMARY ---
Patient: AMOR NASCIMENTO Medication Reconciliation Report [facility] VisitID: [id number] [place] [address] 41y, F Registration Date/Time: 06/16/2016 Weight: 104.3 kg Height/Length: 65 in. BMI: 38.3 ALLERGIES: Cipro, Sulfa Antibiotics The patient's Home Medications are listed below: CONTINUE TAKING THE FOLLOWING MEDICATIONS: Atenolol Oral 100 mg, daily BusPIRone HCl Oral, 10 mg AM; 15 mg PM Celexa Oral 20 mg, at bedtime Loratadine Oral 10 mg, daily Nasacort AQ Nasal 2 sprays, 2x a day ProAir HFA Inhalation Qvar Inhalation (40 mcg/act) The source(s) of the original Home Medication information: patient The following Medications were given to the patient in the Emergency Department: IV NS IV Fluids bolus 0, then 999 mL/hr, administered: 06/16/2016 11:38:00 PM Toradol [IVP] IVP 30 mg, administered: 06/16/2016 11:40:00 PM Morphine [IVP] IVP 4 mg, administered: 06/17/2016 12:28:00 AM Dilaudid [IVP] IVP 1 mg, administered: 06/17/2016 1:17:00 AM IV NS IV Fluids bolus 0, then 999 mL/hr, administered: 06/17/2016 2:20:00 AM Dilaudid [IVP] IVP 1 mg, administered: 06/17/2016 3:40:00 AM The following Medications were prescribed to the patient: Zofran (orally disintegrating tablets) 4 mg: take 1 orally every 8 hours as needed for nausea and vomiting. Dispense ten (10). No refill. Substitution is permissible. -- Aydin Hathaway Dr. Motrin 600 mg tablets: take 1 tablet orally every 6 hours. Dispense thirty (30). No refill. Substitution is permissible.(PRN pain, kidney tube spasm, swelling) -- Aydin Hathaway Dr. Percocet 5 mg/325 mg: take 1-2 tablets orally every 6 hours as needed for pain. Dispense twenty (20). No refill. Substitution is permissible. -- Aydin Hathaway Dr.
--- NOTE | 2016-06-18 14:14 | DIAGNOSTIC IMAGING REPORT ---
PROCEDURE: CT ABDOMEN/PELVIS W/O CONTRAST INDICATION: Flank pain. History of kidney stones. TECHNIQUE: Noncontrast axial images with sagittal and coronal reformations. Preliminary report provided by Tamara Villaseñor MD ([facility]). COMPARISON: Compared to CT abdomen and pelvis studies (03/05/2015, 09/16/2014, 01/13/2013). FINDINGS: ABDOMEN: There is mild left hydronephrosis secondary to a 6 mm left proximal ureter ureteral calculus. There are two other smaller 2 mm nonobstructing left renal calculi. Right kidney and ureter are normal. Status post gastric sleeve surgery Bowel pattern is normal. Appendix is not clearly identified, but no evidence of inflammatory process. Mild splenomegaly (15 cm). Gallbladder, liver, spleen, pancreas, and aorta are normal. There are postoperative change of the lower ventral abdominal wall (surgical clips). Mild to moderate degenerative changes of the lumbar spine. PELVIS: Findings suggest supracervical hysterectomy. In addition, findings suggest enlargement of the right ovary (6.5 cm) with cystic and solid components. Left ovary is not visualized. No evidence of free fluid. IMPRESSION: 1. Mild left hydronephrosis secondary to a 6 mm left proximal ureteral calculus. 2. There are two smaller 2 mm nonobstructing left renal calculi. 3. Status post gastric sleeve surgery. 4. Mild chronic splenomegaly (15 cm). 5. Status post lower ventral abdominal wall surgery. 6. Status post supracervical hysterectomy. 7. Findings suggest moderate enlargement of the right ovary (6.5 cm) with cystic and solid components. Ultrasound is recommended to further evaluate after the patient's acute illness (4-6 weeks). 8. Findings discussed with Dr. Hathaway. 9. Findings discussed with the patient on 06/18/2016 ([phone]), including the need for follow-up of the right ovary. All CT scans at this facility use dose modulation, iterative reconstruction, and/or weight-based dosing when appropriate to reduce radiation dose to as low as reasonably achievable.
--- NOTE | 2016-06-18 14:14 | DIAGNOSTIC IMAGING REPORT ---
PROCEDURE: CT ABDOMEN/PELVIS W/O CONTRAST INDICATION: Flank pain. History of kidney stones. TECHNIQUE: Noncontrast axial images with sagittal and coronal reformations. Preliminary report provided by Tamara Villaseñor MD ([facility]). COMPARISON: Compared to CT abdomen and pelvis studies (03/05/2015, 09/16/2014, 01/13/2013). FINDINGS: ABDOMEN: There is mild left hydronephrosis secondary to a 6 mm left proximal ureter ureteral calculus. There are two other smaller 2 mm nonobstructing left renal calculi. Right kidney and ureter are normal. Status post gastric sleeve surgery Bowel pattern is normal. Appendix is not clearly identified, but no evidence of inflammatory process. Mild splenomegaly (15 cm). Gallbladder, liver, spleen, pancreas, and aorta are normal. There are postoperative change of the lower ventral abdominal wall (surgical clips). Mild to moderate degenerative changes of the lumbar spine. PELVIS: Findings suggest supracervical hysterectomy. In addition, findings suggest enlargement of the right ovary (6.5 cm) with cystic and solid components. Left ovary is not visualized. No evidence of free fluid. IMPRESSION: 1. Mild left hydronephrosis secondary to a 6 mm left proximal ureteral calculus. 2. There are two smaller 2 mm nonobstructing left renal calculi. 3. Status post gastric sleeve surgery. 4. Mild chronic splenomegaly (15 cm). 5. Status post lower ventral abdominal wall surgery. 6. Status post supracervical hysterectomy. 7. Findings suggest moderate enlargement of the right ovary (6.5 cm) with cystic and solid components. Ultrasound is recommended to further evaluate after the patient's acute illness (4-6 weeks). 8. Findings discussed with Dr. Hathaway. 9. Findings discussed with the patient on 06/18/2016 ([phone]), including the need for follow-up of the right ovary. All CT scans at this facility use dose modulation, iterative reconstruction, and/or weight-based dosing when appropriate to reduce radiation dose to as low as reasonably achievable.
== END 2016-06-17 04:10 | disposition home or self-care (01) ==
LOC: ED SRH 21:34
DX: N13.2 Hydronephrosis with renal and ureteral calculous obstruction (principal); I10 Essential (primary) hypertension; R31.0 Gross hematuria; E11.9 Type 2 diabetes mellitus without complications; K21.9 Gastro-esophageal reflux disease without esophagitis; J45.909 Unspecified asthma, uncomplicated; Z79.899 Other long term (current) drug therapy; Z88.2 Allergy status to sulfonamides; Z88.8 Allergy status to other drugs, medicaments and biological substances
CPT/HCPCS: 90004; 90047; 95059

== ENCOUNTER → 2016-08-01 | Emergency (ER) | payer OTHER ==
--- NOTE | 2016-08-01 18:45 | ED NURSING NOTES ---
Clinical Report - Nurses [address] [place] [address] 08/01/2016 17:21 Patient: AMOR NASCIMENTO TRIAGE Triage time 17:57 Aug 01 2016. Acuity: LEVEL 3. Chief Complaint: RIGHT LOWER EXTREMITY PAIN, SWELLING and REDNESS. Location of symptoms- right thigh (drainage from surgical site). LEFT LOWER EXTREMITY PAIN, SWELLING and REDNESS. Location of symptoms- left thigh (drainage from surgical site). Alert. No acute distress. --18:08 Kathleen Harmon R.N. 17:57 08/01/16. BP: 107/70. HR: 59. RR: 16. O2 saturation: 95%. Temp: 98.6 F. Pain level now: 02/13. --18:08 Kathleen Harmon R.N. Weight: 105.2 kg stated. Height/Length: 66 inches Per Patient. BMI: 37.5. --18:06 Kathleen Harmon R.N. Medications OxyCODONE HCl Oral (Tablet 5 mg) 4 tablets, q 4 hours as needed. --17:59 Kathleen Harmon R.N. Atenolol Oral (Tablet 100 mg) 1 tablet, daily. --17:59 Kathleen Harmon R.N. CeleXA Oral (Tablet 20 mg) 1 tablet, daily. --18:00 Kathleen Harmon R.N. BusPIRone HCl Oral (Tablet 15 mg) 1 tablet, 3x a day. --18:00 Kathleen Harmon R.N. Omep 20 mg, 2x a day. --18:00 Kathleen Harmon R.N. Claritin Oral (Tablet 10 mg) 1 tablet, daily. Omeprazole Oral. --18:01 Kathleen Harmon R.N. Hydrochlorothiazide Oral (Tablet 25 mg) 1 tablet, daily. --18:01 Kathleen Harmon R.N. MetFORMIN HCl Oral (Tablet 500 mg) 1 tablet, 2x a day. --18:02 Kathleen Harmon R.N. Ibuprofen Oral (Tablet 600 mg) 1 tablet, 2x a day. --18:02 Kathleen Harmon R.N. Doxycycline 100mg, 2x a day. --18:04 Kathleen Harmon R.N. Allergies Sulfa Antibiotics. --18:02 Kathleen Harmon R.N. Cipro. --18:03 Kathleen Harmon R.N. History Arrived by private vehicle. Historian: patient. Provoking / relieving factors: worsened by movement. She has had redness. 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 PAST MEDICAL HX: Diabetes mellitus. Hypertension. Tetanus status: up-to-date. Immunizations: up-to-date. The patient has had a hysterectomy. SOCIAL HX: Never smoker. No alcohol use or drug use. No infectious disease exposure. FALL RISK ASSESSMENT: Fall risk assessment completed. No fall risk identified. NUTRITIONAL RISK ASSESSMENT: The nutritional risk assessment revealed no deficiencies. FUNCTIONAL ASSESSMENT: Functional assessment: no impairments noted. LEARNING NEEDS ASSESSMENT: The learning needs assessment revealed no barriers. SKIN INTEGRITY ASSESSMENT: Skin integrity risk assessment completed. No skin integrity risk identified. --18:08 Kathleen Harmon R.N. PROBLEMS: Hematuria. Renal Colic. Ureterolithiasis. Tendonitis. Back Injury. Sciatica. Back Pain. Fever. Headache. Abdominal Muscle Strain. Hypokalemia. Atypical Chest Pain. Gastroenteritis. Diverticulitis. Ovarian Cyst. Gastroesophageal Reflux Disease. Pancreatitis. Anxiety Reaction. Depression. Asthma. Bronchitis. Lung Disease. Immunizations. Hypertension. UTI - Urinary Tract Infection. Abdominal Pain. Diabetes Mellitus. LNMP - Last Normal Menstrual Period. --18:05 Kathleen Harmon R.N. ADDITIONAL SURGERIES: Adenoidectomy. Appendectomy. Gastric bypass. Hysterectomy. Pannaectomy. Thigh. Thigh lift. Tonsillectomy. --18:05 Kathleen Harmon R.N. Interventions ID and allergy band on patient. To room. --18:08 Kathleen Harmon R.N. PHYSICAL ASSESSMENT Ambulatory to room. GENERAL / NEURO / PSYCH: Oriented X 4. Alert. Appears in no acute distress. Appears in pain. CVS: Pulses: right dorsalis pedis 2+ and left dorsalis pedis 2+. EXTREMITIES: Purulent drainage on the extremities. Right thigh: tenderness, swelling and erythema located in the medial aspect of upper thigh. Left thigh: tenderness, swelling and erythema located in the medial aspect of upper thigh. --18:10 Kathleen Harmon R.N. NURSING PROGRESS NOTES Patient gowned. Two patient identifiers checked. Call light placed in reach. Side rails up x 1. Bed placed in lowest position. Brakes of bed on. Patient ready for evaluation- chart flagged. --18:11 Kathleen Harmon R.N. DISPOSITION / DISCHARGE Condition at departure: unchanged. No learning barriers present. Discharge instructions provided and reviewed with the patient. Reviewed warnings. Reviewed medication(s). Reviewed referral to a primary care physician. Patient verbalized understanding. Written instructions provided in Ch[place]. The patient was discharged home. She left the Emergency Department ambulatory and via private vehicle. Patient driving. FALL RISK ASSESSMENT: Fall risk assessment completed. No fall risk identified. --19:02 Kathleen Harmon R.N. 18:59 08/01/16. BP: 107/67. HR: 63. RR: 16. O2 saturation: 98%. Temp: 98.7 F. Pain level now: 01/13. --19:02 Kathleen Harmon R.N. Locked/Released at 08/01/2016 22:37 by Kathleen Harmon R.N.
--- NOTE | 2016-08-01 18:45 | ED NURSING NOTES ---
Clinical Report - Nurses [address] [place] [address] 08/01/2016 17:21 Patient: AMOR NASCIMENTO TRIAGE Triage time 17:57 Aug 01 2016. Acuity: LEVEL 3. Chief Complaint: RIGHT LOWER EXTREMITY PAIN, SWELLING and REDNESS. Location of symptoms- right thigh (drainage from surgical site). LEFT LOWER EXTREMITY PAIN, SWELLING and REDNESS. Location of symptoms- left thigh (drainage from surgical site). Alert. No acute distress. --18:08 Kathleen Harmon R.N. 17:57 08/01/16. BP: 107/70. HR: 59. RR: 16. O2 saturation: 95%. Temp: 98.6 F. Pain level now: 02/13. --18:08 Kathleen Harmon R.N. Weight: 105.2 kg stated. Height/Length: 66 inches Per Patient. BMI: 37.5. --18:06 Kathleen Harmon R.N. Medications OxyCODONE HCl Oral (Tablet 5 mg) 4 tablets, q 4 hours as needed. --17:59 Kathleen Harmon R.N. Atenolol Oral (Tablet 100 mg) 1 tablet, daily. --17:59 Kathleen Harmon R.N. CeleXA Oral (Tablet 20 mg) 1 tablet, daily. --18:00 Kathleen Harmon R.N. BusPIRone HCl Oral (Tablet 15 mg) 1 tablet, 3x a day. --18:00 Kathleen Harmon R.N. Omep 20 mg, 2x a day. --18:00 Kathleen Harmon R.N. Claritin Oral (Tablet 10 mg) 1 tablet, daily. Omeprazole Oral. --18:01 Kathleen Harmon R.N. Hydrochlorothiazide Oral (Tablet 25 mg) 1 tablet, daily. --18:01 Kathleen Harmon R.N. MetFORMIN HCl Oral (Tablet 500 mg) 1 tablet, 2x a day. --18:02 Kathleen Harmon R.N. Ibuprofen Oral (Tablet 600 mg) 1 tablet, 2x a day. --18:02 Kathleen Harmon R.N. Doxycycline 100mg, 2x a day. --18:04 Kathleen Harmon R.N. Allergies Sulfa Antibiotics. --18:02 Kathleen Harmon R.N. Cipro. --18:03 Kathleen Harmon R.N. History Arrived by private vehicle. Historian: patient. Provoking / relieving factors: worsened by movement. She has had redness. 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 PAST MEDICAL HX: Diabetes mellitus. Hypertension. Tetanus status: up-to-date. Immunizations: up-to-date. The patient has had a hysterectomy. SOCIAL HX: Never smoker. No alcohol use or drug use. No infectious disease exposure. FALL RISK ASSESSMENT: Fall risk assessment completed. No fall risk identified. NUTRITIONAL RISK ASSESSMENT: The nutritional risk assessment revealed no deficiencies. FUNCTIONAL ASSESSMENT: Functional assessment: no impairments noted. LEARNING NEEDS ASSESSMENT: The learning needs assessment revealed no barriers. SKIN INTEGRITY ASSESSMENT: Skin integrity risk assessment completed. No skin integrity risk identified. --18:08 Kathleen Harmon R.N. PROBLEMS: Hematuria. Renal Colic. Ureterolithiasis. Tendonitis. Back Injury. Sciatica. Back Pain. Fever. Headache. Abdominal Muscle Strain. Hypokalemia. Atypical Chest Pain. Gastroenteritis. Diverticulitis. Ovarian Cyst. Gastroesophageal Reflux Disease. Pancreatitis. Anxiety Reaction. Depression. Asthma. Bronchitis. Lung Disease. Immunizations. Hypertension. UTI - Urinary Tract Infection. Abdominal Pain. Diabetes Mellitus. LNMP - Last Normal Menstrual Period. --18:05 Kathleen Harmon R.N. ADDITIONAL SURGERIES: Adenoidectomy. Appendectomy. Gastric bypass. Hysterectomy. Pannaectomy. Thigh. Thigh lift. Tonsillectomy. --18:05 Kathleen Harmon R.N. Interventions ID and allergy band on patient. To room. --18:08 Kathleen Harmon R.N. PHYSICAL ASSESSMENT Ambulatory to room. GENERAL / NEURO / PSYCH: Oriented X 4. Alert. Appears in no acute distress. Appears in pain. CVS: Pulses: right dorsalis pedis 2+ and left dorsalis pedis 2+. EXTREMITIES: Purulent drainage on the extremities. Right thigh: tenderness, swelling and erythema located in the medial aspect of upper thigh. Left thigh: tenderness, swelling and erythema located in the medial aspect of upper thigh. --18:10 Kathleen Harmon R.N. NURSING PROGRESS NOTES Patient gowned. Two patient identifiers checked. Call light placed in reach. Side rails up x 1. Bed placed in lowest position. Brakes of bed on. Patient ready for evaluation- chart flagged. --18:11 Kathleen Harmon R.N. DISPOSITION / DISCHARGE Condition at departure: unchanged. No learning barriers present. Discharge instructions provided and reviewed with the patient. Reviewed warnings. Reviewed medication(s). Reviewed referral to a primary care physician. Patient verbalized understanding. Written instructions provided in [place]. The patient was discharged home. She left the Emergency Department ambulatory and via private vehicle. Patient driving. FALL RISK ASSESSMENT: Fall risk assessment completed. No fall risk identified. --19:02 Kathleen Harmon R.N. 18:59 08/01/16. BP: 107/67. HR: 63. RR: 16. O2 saturation: 98%. Temp: 98.7 F. Pain level now: 01/13. --19:02 Kathleen Harmon R.N. Locked/Released at 08/01/2016 22:37 by Kathleen Harmon R.N.
--- NOTE | 2016-08-01 18:45 | ED CLINICAL REPORT ---
Clinical Report - Physicians/Mid Levels [address] [place] [address] 08/01/2016 17:21 Patient: AMOR NASCIMENTO Time Seen: 1800; initial patient contact. Arrived- By private vehicle. Historian- patient. HISTORY OF PRESENT ILLNESS Chief Complaint: TENDER AREA. This started 3 days ago; RIGHT LOWER EXTREMITY PAIN, SWELLING and REDNESS. Location of symptoms- right thigh (drainage from surgical site). LEFT LOWER EXTREMITY PAIN, SWELLING and REDNESS. Location of symptoms- left thigh (drainage from surgical site). pt had a thigh reduction surgery 2 weeks ago and had an evaluation last by her surgeon, is on doxycycline for redness and mild cellulitis, but she was at a function earlier today and her thighs were rubbing together, and now has more pain and thinks it is still infected. and is still present. It is described as painful and burning. It has been located on the right lower extremity and left lower extremity. A cause has been identified. Similar symptoms previously: None. Recent medical care: The patient was seen recently at another facility in a clinic. REVIEW OF SYSTEMS No fever or chills. All systems otherwise negative, except as recorded above. PAST HISTORY See nurses notes. Tetanus immunization status is up-to-date. Problems: Hematuria. Renal Colic. Ureterolithiasis. Tendonitis. Back Injury. Sciatica. Back Pain. Fever. Headache. Abdominal Muscle Strain. Hypokalemia. Atypical Chest Pain. Gastroenteritis. Diverticulitis. Lung Disease. Hypertension. Medications: Doxycycline 100mg, 2x a day. Ibuprofen Oral (Tablet 600 mg) 1 tablet, 2x a day. MetFORMIN HCl Oral (Tablet 500 mg) 1 tablet, 2x a day. Hydrochlorothiazide Oral (Tablet 25 mg) 1 tablet, daily. Claritin Oral (Tablet 10 mg) 1 tablet, daily. Omeprazole Oral. Omep 20 mg, 2x a day. BusPIRone HCl Oral (Tablet 15 mg) 1 tablet, 3x a day. CeleXA Oral (Tablet 20 mg) 1 tablet, daily. Atenolol Oral (Tablet 100 mg) 1 tablet, daily. OxyCODONE HCl Oral (Tablet 5 mg) 4 tablets, q 4 hours as needed. Allergies: Cipro. Sulfa Antibiotics. SOCIAL HISTORY No alcohol use or drug use. FAMILY HISTORY Negative. ADDITIONAL NOTES The nursing notes have been reviewed with agreement regarding the chief complaint, HPI, ROS, PMH and patient medications and allergies. PHYSICAL EXAM Vital Signs: 08/01/2016 18:59 BP: 107/67. HR: 63. RR: 16. O2 saturation: 98%. Temp: 98.7 F. Pain level now: 01/13. Have been reviewed. Appearance: Alert. Oriented X3. Anxious. Appears to be in pain. Eyes: Pupils equal, round and reactive to light. Conjunctivae and eyelids normal. ENT: Ears normal. Neck: Neck supple. CVS: Normal heart rate and rhythm. Heart sounds normal. Respiratory: No respiratory distress. Breath sounds normal. Skin: Skin warm and dry. Normal skin color. Normal skin turgor. Multiple medium tender indurated areas with cellulitis to right thigh and left thigh (along her incision site bilateral inner thighs and has a few sutures that have popped with scant amount of bleeding and surrounding erythema to the proximal bilateral incision line.). No fluctuance. PROGRESS AND PROCEDURES PROCEDURES (cleansed her inscion area and applied bacitracin and 4x4 guaze and wrapped with sammy bandages for comfort. pt reports it feels much better.). Course of Care: Patient is stable. Physical exam findings are improved. CLINICAL IMPRESSION Cellulitis of the right thigh and left thigh (post operative mild cellulitis and suture dehiscence.). INSTRUCTIONS No strenuous activity. Rest. (compression wrap thighs lightly for a few days, add heat alternating with cold compresses as needed, and see your surgeon this week.). Warnings: Further evaluation is necessary. It is very important to follow up with a physician. GENERAL WARNINGS: Return or contact your physician immediately if your condition worsens or changes unexpectedly, if not improving as expected, or if other problems arise. Your Current Medications: CONTINUE TAKING THE FOLLOWING MEDICATIONS: Atenolol Oral : Tablet 100 mg, 1 tablet daily. BusPIRone HCl Oral : Tablet 15 mg, 1 tablet 3x a day. CeleXA Oral : Tablet 20 mg, 1 tablet daily. Claritin Oral : Tablet 10 mg, 1 tablet daily. Doxycycline* : 100mg 2x a day. Hydrochlorothiazide Oral : Tablet 25 mg, 1 tablet daily. Ibuprofen Oral : Tablet 600 mg, 1 tablet 2x a day. MetFORMIN HCl Oral : Tablet 500 mg, 1 tablet 2x a day. Omep* : 20 mg 2x a day. Omeprazole Oral. OxyCODONE HCl Oral : Tablet 5 mg, 4 tablets q 4 hours, prn. Prescription Medications: Clindamycin 300 mg: take 1 capsule orally every 8 hours for 7 days Ibuprofen 800 mg tablets: take 1 tablet orally every 8 hours as needed for pain. Dispense twenty (20). No refill. Diflucan 150 mg tablets: take 1 tablet orally for 3 days. No refill. Substitution is permissible. OTC Medications: Bacitracin ointment (available over the counter): apply to affected area twice daily as needed for crusting, weeping or redness for 1 week, until symptoms improve. Dispense one (1) oz tube. No refills. Follow-up: Call the emergency department in 3 days for results of cultures. Follow up with your doctor Tuesday as scheduled. Reason for referral: follow up thigh reduction. Understanding of the discharge instructions verbalized by patient. (Electronically signed by Ekaterina Brown PA-C 08/02/2016 0:33)
--- NOTE | 2016-08-01 18:45 | ED ORDER SUMMARY ---
..... Patient: AMOR NASCIMENTO OrderSheet [facility] VisitID: [id number] [address] [place] [address] 41y, F Registration Date/Time: 08/01/2016 ORDER SHEET Weight: 105.2 kg (stated) Allergies: Sulfa Antibiotics, Cipro GENERAL ORDERS: Culture, Wound Surface (Leg) (left thigh wound culture) Urgent (18:41 08/01/2016 Tereza Das verbal order read back to Jesus BENITEZ) (k 18:46 Serafin) (18:46 Tereza Das) MEDICATION ORDERS: IV FLUIDS: ORDER SHEET NOTES: Reason for Study: Infection [Electronically signed by Kathleen Harmon R.N. (22:37 08/01/2016)] [Electronically signed by Ekaterina Brown PA-C (00:33 08/02/2016)] [Electronically locked/signed by Kathleen Harmon R.N. (22:37 08/01/2016)]
--- NOTE | 2016-08-01 18:45 | ED ORDER SUMMARY ---
..... Patient: AMOR NASCIMENTO OrderSheet [facility] VisitID: [id number] [address] [place] [address] 41y, F Registration Date/Time: 08/01/2016 ORDER SHEET Weight: 105.2 kg (stated) Allergies: Sulfa Antibiotics, Cipro GENERAL ORDERS: Culture, Wound Surface (Leg) (left thigh wound culture) Urgent (18:41 08/01/2016 Tereza Das verbal order read back to Jesus BENITEZ) (k 18:46 Serafin) (18:46 Tereza Das) MEDICATION ORDERS: IV FLUIDS: ORDER SHEET NOTES: Reason for Study: Infection [Electronically signed by Kathleen Harmon R.N. (22:37 08/01/2016)] [Electronically signed by Ekaterina Brown PA-C (00:33 08/02/2016)] [Electronically locked/signed by Kathleen Harmon R.N. (22:37 08/01/2016)]
--- NOTE | 2016-08-02 00:33 | ED DISCHARGE INSTRUCTIONS ---
Patient: AMOR NASCIMENTO General Instructions [facility] VisitID: [id number] [place] [address] 41y, F Registration Date/Time: 08/01/2016 Cellulitis of the right thigh and left thigh (post operative mild cellulitis and suture dehiscence.). INSTRUCTIONS No strenuous activity. Rest. (compression wrap thighs lightly for a few days, add heat alternating with cold compresses as needed, and see your surgeon this week.). Warnings: Further evaluation is necessary. It is very important to follow up with a physician. GENERAL WARNINGS: Return or contact your physician immediately if your condition worsens or changes unexpectedly, if not improving as expected, or if other problems arise. Your Current Medications: CONTINUE TAKING THE FOLLOWING MEDICATIONS: Atenolol Oral : Tablet 100 mg, 1 tablet daily. BusPIRone HCl Oral : Tablet 15 mg, 1 tablet 3x a day. CeleXA Oral : Tablet 20 mg, 1 tablet daily. Claritin Oral : Tablet 10 mg, 1 tablet daily. Doxycycline* : 100mg 2x a day. Hydrochlorothiazide Oral : Tablet 25 mg, 1 tablet daily. Ibuprofen Oral : Tablet 600 mg, 1 tablet 2x a day. MetFORMIN HCl Oral : Tablet 500 mg, 1 tablet 2x a day. Omep* : 20 mg 2x a day. Omeprazole Oral. OxyCODONE HCl Oral : Tablet 5 mg, 4 tablets q 4 hours, prn. Prescription Medications: Clindamycin 300 mg: take 1 capsule orally every 8 hours for 7 days Ibuprofen 800 mg tablets: take 1 tablet orally every 8 hours as needed for pain. Dispense twenty (20). No refill. Diflucan 150 mg tablets: take 1 tablet orally for 3 days. No refill. Substitution is permissible. OTC Medications: Bacitracin ointment (available over the counter): apply to affected area twice daily as needed for crusting, weeping or redness for 1 week, until symptoms improve. Dispense one (1) oz tube. No refills. Follow-up: Call the emergency department in 3 days for results of cultures. Follow up with your doctor Tuesday as scheduled. Reason for referral: follow up thigh reduction. Understanding of the discharge instructions verbalized by patient. ADDITIONAL INFORMATION Clindamycin Hydrochloride Oral capsule What is this medicine? CLINDAMYCIN (KRYSTAL Simmons) is a lincosamide antibiotic. It is used to treat certain kinds of bacterial infections. It will not work for colds, flu, or other viral infections. How should I use this medicine? Take this medicine by mouth with a full glass of water. Follow the directions on the prescription label. You can take this medicine with food or on an empty stomach. If the medicine upsets your stomach, take it with food. Take your medicine at regular intervals. Do not take your medicine more often than directed. Take all of your medicine as directed even if you think your are better. Do not skip doses or stop your medicine early. Talk to your pipe covering molder regarding the use of this medicine in children. Special care may be needed. What side effects may I notice from receiving this medicine? Side effects that you should report to your doctor or health tree care foreman as soon as possible: allergic reactions like skin rash, itching or hives, swelling of the face, lips, or tongue dark urine pain on swallowing redness, blistering, peeling or loosening of the skin, including inside the mouth unusual bleeding or bruising unusually weak or tired yellowing of eyes or skin Side effects that usually do not require medical attention (report to your doctor or health tree care foreman if they continue or are bothersome): diarrhea itching in the rectal or genital area joint pain nausea, vomiting stomach pain What may interact with this medicine? chloramphenicol erythromycin kaolin products What if I miss a dose? If you miss a dose, take it as soon as you can. If it is almost time for your next dose, take only that dose. Do not take double or extra doses. Where should I keep my medicine? Keep out of the reach of children. Store at room temperature between 20 and 25 degrees C (68 and 77 degrees F). Throw away any unused medicine after the expiration date. What should I tell my health care provider before I take this medicine? They need to know if you have any of these conditions: kidney disease liver disease stomach problems like colitis an unusual or allergic reaction to clindamycin, lincomycin, or other medicines, foods, dyes like tartrazine or preservatives or trying to get breast-feeding What should I watch for while using this medicine? Tell your doctor or healthcare professional if your symptoms do not start to get better or if they get worse. Do not treat diarrhea with over the counter products. Contact your doctor if you have diarrhea that lasts more than 2 days or if it is severe and watery. You have been given the following additional information: Clindamycin Hydrochloride Oral capsule No strenuous activity. Rest. (Electronically signed by Ekaterina Brown PA-C 08/02/2016 0:33)
--- NOTE | 2016-08-02 00:33 | ED DISCHARGE INSTRUCTIONS ---
Patient: AMOR NASCIMENTO General Instructions [facility] VisitID: [id number] [place] [address] 41y, F Registration Date/Time: 08/01/2016 Cellulitis of the right thigh and left thigh (post operative mild cellulitis and suture dehiscence.). INSTRUCTIONS No strenuous activity. Rest. (compression wrap thighs lightly for a few days, add heat alternating with cold compresses as needed, and see your surgeon this week.). Warnings: Further evaluation is necessary. It is very important to follow up with a physician. GENERAL WARNINGS: Return or contact your physician immediately if your condition worsens or changes unexpectedly, if not improving as expected, or if other problems arise. Your Current Medications: CONTINUE TAKING THE FOLLOWING MEDICATIONS: Atenolol Oral : Tablet 100 mg, 1 tablet daily. BusPIRone HCl Oral : Tablet 15 mg, 1 tablet 3x a day. CeleXA Oral : Tablet 20 mg, 1 tablet daily. Claritin Oral : Tablet 10 mg, 1 tablet daily. Doxycycline* : 100mg 2x a day. Hydrochlorothiazide Oral : Tablet 25 mg, 1 tablet daily. Ibuprofen Oral : Tablet 600 mg, 1 tablet 2x a day. MetFORMIN HCl Oral : Tablet 500 mg, 1 tablet 2x a day. Omep* : 20 mg 2x a day. Omeprazole Oral. OxyCODONE HCl Oral : Tablet 5 mg, 4 tablets q 4 hours, prn. Prescription Medications: Clindamycin 300 mg: take 1 capsule orally every 8 hours for 7 days Ibuprofen 800 mg tablets: take 1 tablet orally every 8 hours as needed for pain. Dispense twenty (20). No refill. Diflucan 150 mg tablets: take 1 tablet orally for 3 days. No refill. Substitution is permissible. OTC Medications: Bacitracin ointment (available over the counter): apply to affected area twice daily as needed for crusting, weeping or redness for 1 week, until symptoms improve. Dispense one (1) oz tube. No refills. Follow-up: Call the emergency department in 3 days for results of cultures. Follow up with your doctor Tuesday as scheduled. Reason for referral: follow up thigh reduction. Understanding of the discharge instructions verbalized by patient. ADDITIONAL INFORMATION Clindamycin Hydrochloride Oral capsule What is this medicine? CLINDAMYCIN (KRYSTAL Simmons) is a lincosamide antibiotic. It is used to treat certain kinds of bacterial infections. It will not work for colds, flu, or other viral infections. How should I use this medicine? Take this medicine by mouth with a full glass of water. Follow the directions on the prescription label. You can take this medicine with food or on an empty stomach. If the medicine upsets your stomach, take it with food. Take your medicine at regular intervals. Do not take your medicine more often than directed. Take all of your medicine as directed even if you think your are better. Do not skip doses or stop your medicine early. Talk to your construction quality control manager regarding the use of this medicine in children. Special care may be needed. What side effects may I notice from receiving this medicine? Side effects that you should report to your doctor or health intensive care specialist as soon as possible: allergic reactions like skin rash, itching or hives, swelling of the face, lips, or tongue dark urine pain on swallowing redness, blistering, peeling or loosening of the skin, including inside the mouth unusual bleeding or bruising unusually weak or tired yellowing of eyes or skin Side effects that usually do not require medical attention (report to your doctor or health intensive care specialist if they continue or are bothersome): diarrhea itching in the rectal or genital area joint pain nausea, vomiting stomach pain What may interact with this medicine? chloramphenicol erythromycin kaolin products What if I miss a dose? If you miss a dose, take it as soon as you can. If it is almost time for your next dose, take only that dose. Do not take double or extra doses. Where should I keep my medicine? Keep out of the reach of children. Store at room temperature between 20 and 25 degrees C (68 and 77 degrees F). Throw away any unused medicine after the expiration date. What should I tell my health care provider before I take this medicine? They need to know if you have any of these conditions: kidney disease liver disease stomach problems like colitis an unusual or allergic reaction to clindamycin, lincomycin, or other medicines, foods, dyes like tartrazine or preservatives or trying to get breast-feeding What should I watch for while using this medicine? Tell your doctor or healthcare professional if your symptoms do not start to get better or if they get worse. Do not treat diarrhea with over the counter products. Contact your doctor if you have diarrhea that lasts more than 2 days or if it is severe and watery. You have been given the following additional information: Clindamycin Hydrochloride Oral capsule No strenuous activity. Rest. (Electronically signed by Ekaterina Brown PA-C 08/02/2016 0:33)
--- NOTE | 2016-08-02 00:34 | ED MED RECONCILIATION SUMMARY ---
Patient: AMOR NASCIMENTO Medication Reconciliation Report [facility] VisitID: [id number] [address] [place] [address] 41y, F Registration Date/Time: 08/01/2016 Weight: 105.2 kg Height/Length: 66 in. BMI: 37.5 ALLERGIES: Cipro, Sulfa Antibiotics The patient's Home Medications are listed below: CONTINUE TAKING THE FOLLOWING MEDICATIONS: Atenolol Oral (100 mg) 1 tablet, daily BusPIRone HCl Oral (15 mg) 1 tablet, 3x a day CeleXA Oral (20 mg) 1 tablet, daily Claritin Oral (10 mg) 1 tablet, daily Doxycycline 100mg, 2x a day Hydrochlorothiazide Oral (25 mg) 1 tablet, daily Ibuprofen Oral (600 mg) 1 tablet, 2x a day MetFORMIN HCl Oral (500 mg) 1 tablet, 2x a day Omep 20 mg, 2x a day Omeprazole Oral OxyCODONE HCl Oral (5 mg) 4 tablets, q 4 hours The source(s) of the original Home Medication information: Not obtained. The following Medications were given to the patient in the Emergency Department: None. The following Medications were prescribed to the patient: Clindamycin 300 mg: take 1 capsule orally every 8 hours for 7 days -- Ekaterina Brown PA-C Ibuprofen 800 mg tablets: take 1 tablet orally every 8 hours as needed for pain. Dispense twenty (20). No refill. -- Ekaterina Brown PA-C Bacitracin ointment (available over the counter): apply to affected area twice daily as needed for crusting, weeping or redness for 1 week, until symptoms improve. Dispense one (1) oz tube. No refills. -- Ekaterina Brown PA-C Diflucan 150 mg tablets: take 1 tablet orally for 3 days. No refill. Substitution is permissible. -- Ekaterina Brown PA-C
--- NOTE | 2016-08-02 00:34 | ED MED RECONCILIATION SUMMARY ---
Patient: AMOR NASCIMENTO Medication Reconciliation Report [facility] VisitID: [id number] [address] [place] [address] 41y, F Registration Date/Time: 08/01/2016 Weight: 105.2 kg Height/Length: 66 in. BMI: 37.5 ALLERGIES: Cipro, Sulfa Antibiotics The patient's Home Medications are listed below: CONTINUE TAKING THE FOLLOWING MEDICATIONS: Atenolol Oral (100 mg) 1 tablet, daily BusPIRone HCl Oral (15 mg) 1 tablet, 3x a day CeleXA Oral (20 mg) 1 tablet, daily Claritin Oral (10 mg) 1 tablet, daily Doxycycline 100mg, 2x a day Hydrochlorothiazide Oral (25 mg) 1 tablet, daily Ibuprofen Oral (600 mg) 1 tablet, 2x a day MetFORMIN HCl Oral (500 mg) 1 tablet, 2x a day Omep 20 mg, 2x a day Omeprazole Oral OxyCODONE HCl Oral (5 mg) 4 tablets, q 4 hours The source(s) of the original Home Medication information: Not obtained. The following Medications were given to the patient in the Emergency Department: None. The following Medications were prescribed to the patient: Clindamycin 300 mg: take 1 capsule orally every 8 hours for 7 days -- Ekaterina Brown PA-C Ibuprofen 800 mg tablets: take 1 tablet orally every 8 hours as needed for pain. Dispense twenty (20). No refill. -- Ekaterina Brown PA-C Bacitracin ointment (available over the counter): apply to affected area twice daily as needed for crusting, weeping or redness for 1 week, until symptoms improve. Dispense one (1) oz tube. No refills. -- Ekaterina Brown PA-C Diflucan 150 mg tablets: take 1 tablet orally for 3 days. No refill. Substitution is permissible. -- Ekaterina Brown PA-C
--- NOTE | 2016-08-02 00:34 | ED MAR SUMMARY ---
..... Medication Administration Record [facility] [address] [place], [place] [id number] Patient: AMOR NASCIMENTO Visit ID: [id number] 41y, F Weight: 105.2 kg Height/Length: 66 in BMI: 37.5 ALLERGIES: Cipro, Sulfa Antibiotics
--- NOTE | 2016-08-02 00:34 | ED MAR SUMMARY ---
..... Medication Administration Record [facility] [address] [place], [place] [id number] Patient: AMOR NASCIMENTO Visit ID: [id number] 41y, F Weight: 105.2 kg Height/Length: 66 in BMI: 37.5 ALLERGIES: Cipro, Sulfa Antibiotics
== END ==
LOC: ED SRH 17:21
DX: T81.4XXA Infection following a procedure, initial encounter (principal); B95.62 Methicillin resistant Staphylococcus aureus infection as the cause of diseases classified elsewhere; T81.31XA Disruption of external operation (surgical) wound, not elsewhere classified, initial encounter; L03.115 Cellulitis of right lower limb; L03.116 Cellulitis of left lower limb; K21.9 Gastro-esophageal reflux disease without esophagitis; E11.9 Type 2 diabetes mellitus without complications; I10 Essential (primary) hypertension; Z88.2 Allergy status to sulfonamides; Z88.1 Allergy status to other antibiotic agents; Z79.84 Long term (current) use of oral hypoglycemic drugs; Z79.899 Other long term (current) drug therapy
CPT/HCPCS: 90070; 90131; 90148; 90309; 91672

== ENCOUNTER 2016-09-06 19:02 | Emergency (ER) | payer OTHER ==
--- NOTE | 2016-09-06 22:27 | ED NURSING NOTES ---
Clinical Report - Nurses [facility] [address] [place] [address] 09/06/2016 19:02 Patient: AMOR NASCIMENTO TRIAGE Triage time 19:Sep 06 2016. Acuity: LEVEL 3. Chief Complaint: ABDOMINAL PAIN. Alert. MALDONADO COMA SCORE: Maldonado Coma Scale: 15- eyes open spontaneously (4); best verbal response- oriented x 4 (5); best motor response- obeys commands (6). --19:18 Danny Hernandez R.N. 19:09/06/16. BP: 102/74. HR: 60. RR: 16. O2 saturation: 97% on room air. Temp: 98.2 F. --19:18 Danny Hernandez R.N. 19:09/06/16. Pain level now: 10. Additional comments: LLQ Abdominal Pain. --23:23 Danny Hernandez R.N. Weight: 102.5 kg stated. Height/Length: 66 inches Per Patient. BMI: 36.5. --19:09 Danny Hernandez R.N. Medications Atenolol Oral (Tablet 100 mg) 1 tablet, daily. BusPIRone HCl Oral (Tablet 15 mg) 1 tablet, 3x a day. CeleXA Oral (Tablet 20 mg) 1 tablet, daily. Claritin Oral (Tablet 10 mg) 1 tablet, daily. Doxycycline 100mg, 2x a day. Hydrochlorothiazide Oral (Tablet 25 mg) 1 tablet, daily. Ibuprofen Oral (Tablet 600 mg) 1 tablet, 2x a day. MetFORMIN HCl Oral (Tablet 500 mg) 1 tablet, 2x a day. Omeprazole Oral 40 mg, daily. --19:12 Danny Hernandez R.N. Cefdinir Oral 300 mg, 2x a day. --19:13 Danny Hernandez R.N. Allergies Cipro. Sulfa Antibiotics. --19:12 Danny Hernandez R.N. Medication/allergy information source: the patient. --19:18 Mary, Danny, R.N. History Arrived by private vehicle. Historian: patient. Accompanied by family. Primary physician ([facility]). ( Lower Abdominal Pain). Onset. (about 2 days ago intermittently, but steady now). She has had abdominal pain. 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 (warm shower). PAST MEDICAL HX: Immunizations: up-to-date. The patient has had a hysterectomy. Denies current . SOCIAL HX: Never smoker. No alcohol use or drug use. No recent travel. No infectious disease exposure. ABUSE ASSESSMENT: No report of abuse. FALL RISK ASSESSMENT: Fall risk assessment completed. No fall risk identified. NUTRITIONAL RISK ASSESSMENT: The nutritional risk assessment revealed no deficiencies. LEARNING NEEDS ASSESSMENT: The learning needs assessment revealed no barriers. SKIN INTEGRITY ASSESSMENT: Skin integrity risk assessment completed. No skin integrity risk identified. --19:18 Danny Hernandez R.N. PROBLEMS: Cellulitis. Hematuria. Renal Colic. Ureterolithiasis. Tendonitis. Back Injury. Sciatica. Back Pain. Fever. Headache. Abdominal Muscle Strain. Hypokalemia. Atypical Chest Pain. Gastroenteritis. Diverticulitis. Ovarian Cyst. Gastroesophageal Reflux Disease. Pancreatitis. Anxiety Reaction. Depression. Asthma. Bronchitis. Lung Disease. Hypertension. UTI - Urinary Tract Infection. Abdominal Pain. Diabetes Mellitus. LNMP - Last Normal Menstrual Period. --19:15 Danny Hernandez R.N. ADDITIONAL SURGERIES: Adenoidectomy. Appendectomy. Gastric bypass. Hysterectomy. Pannaectomy. Thigh. Thigh lift. Tonsillectomy. --19:15 Danny Hernandez R.N. Interventions ID band on patient. To treatment room. --19:18 Danny Hernandez R.N. PHYSICAL ASSESSMENT Ambulatory to room. GENERAL / NEURO / PSYCH: Alert. Oriented X 4. HEENT: Mucous membranes are pink. RESPIRATORY: Respirations not labored. CVS: Cardiac rhythm: (RRR). GI / : Abdomen soft. Abdominal tenderness in the left lower quadrant. Bowel sounds within normal limits. SKIN: Skin is warm and dry. --19:18 Danny Hernandez R.N. NURSING PROGRESS NOTES Patient gowned. Reassurance given. Patient identifiers checked. Call light placed in reach. Side rails up x 1. Bed placed in lowest position. Brakes of bed on. Patient ready for evaluation- chart flagged and ED physician notified. --19:19 Danny Hernandez R.N. 19:40 09/06/2016 Site #1 started via IV in the right forearm with an 20g angiocath, with aseptic technique and good blood return; one attempt. Blood drawn. Saline lock flushed with 10 mL saline (Red and Purple top drawn). --19:45 Danyn Hernandez R.N. Critical value relayed to ED by Panna tech. Critical value received by Danny Turner EDRRommel. K: 2.9. Critical value read back. Verified lab result and patient ID. PA notifed of critical value. --20:31 Danny Santoyo R.N. 20:21 09/06/2016 Toradol (Ketorolac Tromethamine) IM 30 mg given. Given in the left gluteus maciej. Allergies verified and confirmed 5 rights. --20:36 Danny Hernandez R.N. 21:22 09/06/2016 Started 10 meq of KCL (Potassium Chloride) IVPB in bag #1 50 mL; at 50 mL/hr over 60 minute(s) via site #1 via IV pump. Allergies verified and confirmed 5 rights. IV patency established. IV site checked: no pain, redness, or swelling. IV flushed thoroughly pre- and post-medication administration. --21:47 Danny Hernandez R.N. 21:25 09/06/2016 Started IV Fluids IV NS (Saline); at 200 mL/hr over 5 hour(s) via site #1 via IV pump. Allergies verified and confirmed 5 rights. IV patency established. IV site checked: no pain, redness, or swelling. IV flushed thoroughly pre- and post-medication administration. --21:52 Danny Hernandez R.N. 21:34 09/06/2016 Dilaudid (HYDROmorphone HCl PF) IVP 1 mg given over 2 minute(s) via site #1. Allergies verified, confirmed 5 rights and sedative warning given to the patient. IV patency established. IV site checked: no pain, redness, or swelling. IV flushed thoroughly pre- and post-medication administration. IVP given by RN. --21:34 Danny Hernandez R.N. 21:35 09/06/2016 Started 2 gm of Rocephin (CefTRIAXone Sodium) IVPB in bag #1 50 mL; at 100 mL/hr via site #1 via IV pump. Allergies verified and confirmed 5 rights. IV patency established. IV site checked: no pain, redness, or swelling. IV flushed thoroughly pre- and post-medication administration. --21:45 Danny Hernandez R.N. 21:00 09/06/16. BP: 112/76. HR: 58. RR: 16. O2 saturation: 100% on room air. Pain level now: 5/10. Additional comments: Abdominal Pain. --23:15 Danny Hernandez R.N. 21:45. Patient ID band checked for patient name, birthdate and medical record number: patient confirmed. Instructions provided to collect clean catch urine and patient verbalized understanding. Clean catch urine collected with return of yellow-colored clear urine; odor is normal; sample sent to lab for urinalysis. Specimen labeled in the presence of the patient. --23:16 Danny Hernandez R.N. 22:05 09/06/2016 Rocephin IVPB Discontinued: bag #1. Total amount infused: 50 mL. IV patency established. IV site checked: no pain, redness, or swelling. IV flushed thoroughly. (Rocephin IVPB). --23:19 Danny Hernandez R.N. 22:15 09/06/2016 IV Fluids IV NS Discontinued: bag #1 discontinued. Total amount infused: 200 mL. IV patency established. IV site checked: no pain, redness, or swelling. IV flushed thoroughly. --23:18 Danny Hernandez R.N. 22:20 09/06/2016 KCL IVPB Discontinued: bag #1 infused. Total amount infused: 50 mL. IV patency established. IV site checked: no pain, redness, or swelling. IV flushed thoroughly. (IVPB Potassium). --23:20 Dnany Hernandez R.N. 22:25 09/06/2016 Site #1 removed upon discharge. Catheter intact. Pressure dressing, bandaid and bandage applied. --23:21 Danny Hernandez R.N. DISPOSITION / DISCHARGE 22:25 09/06/16. BP: 128/80. HR: 60. RR: 16. O2 saturation: 97% on room air. Temp: 98.1 F (oral). Pain level now: 0/10. --23:07 Danny Hernandez R.N. Departure time: 2229. --23:08 Danny Hernandez R.N. 22:30. Condition at departure: improved. No learning barriers present. Discharge instructions provided and reviewed with the patient. Reviewed medication(s) dosing and course information (prescription given to pt). Reviewed referral to family practice for followup. Patient verbalized understanding. Written instructions provided in Congolese. The patient was discharged by the physician. She was discharged home and accompanied by family. She left the Emergency Department ambulatory and via private vehicle. Family member driving. FALL RISK ASSESSMENT: Fall risk assessment completed. No fall risk identified. --23:09 Danny Hernandez R.N. Locked/Released at 09/06/2016 23:24 by Danny Hernandez R.N.
--- NOTE | 2016-09-06 22:27 | ED ORDER SUMMARY ---
..... Patient: AMOR NASCIMENTO OrderSheet [facility] VisitID: [id number] [place] [address] 41y, F Registration Date/Time: 09/06/2016 ORDER SHEET Weight: 102.5 kg (stated) Allergies: Cipro, Sulfa Antibiotics GENERAL ORDERS: CBC w Diff Urgent (19:29 09/06/2016 EKoroleva P.A.-C) (19:44 JRomanelli R.N.) CMP Urgent (19:29 09/06/2016 EKoroleva P.A.-C) (19:44 JRomanelli R.N.) UA-Culture if indicated Urgent (19:29 09/06/2016 EKoroleva P.A.-C) (Cancelled: Duplicate Order19:47 CHategekimana) UA-Culture if indicated Urgent (19:30 09/06/2016 EKoroleva P.A.-C) (Ack 19:50 CHategekimana) (21:44 JRomanelli R.N.) Lipase Urgent (20:16 09/06/2016 EKoroleva P.A.-C) (21:45 JRomanelli R.N.) MEDICATION ORDERS: Toradol IM 30 mg (NOW) (19:29 09/06/2016 EKoroleva P.A.-C) (Ack 20:34 JQuivey R.N.) (20:36 JRomanelli R.N.) IV FLUIDS: IV Saline Lock (19:29 09/06/2016 EKoroleva P.A.-C) (19:45 JRomanelli R.N.) KCl IV 10meQ (Run no faster than 10 units/hr) (20:32 09/06/2016 EKoroleva P.A.-C) (Ack 20:34 JQuivey R.N.) (21:47 JRomanelli R.N.) Dilaudid IV 1 mg (HIGH ALERT MEDICATION, NOW) (20:56 09/06/2016 EKoroleva P.A.-C) (21:34 JRomanelli R.N.) Rocephin IV 2 gm/50mL (NOW) (21:29 09/06/2016 Phillipleshahab P.A.-C) (21:45 Lyudmila R.N.) IV NS : initial bolus none -, then 200 mL/hr (NOW) (21:51 09/06/2016 Lyudmila R.N. verbal order read back to Bailee VilledaAEdis-C) (21:52 Lyudmila REdisN.) ORDER SHEET NOTES: [Electronically signed by Danny Hernandez R.N. (23:24 09/06/2016)] [Electronically signed by Fabiola Velasco-Mauro (23:36 09/06/2016)] [Electronically locked/signed by Danny Hernandez R.N. (23:24 09/06/2016)]
--- NOTE | 2016-09-06 22:27 | ED ORDER SUMMARY ---
..... Patient: AMOR NASCIMENTO OrderSheet [facility] VisitID: [id number] [place] [address] 41y, F Registration Date/Time: 09/06/2016 ORDER SHEET Weight: 102.5 kg (stated) Allergies: Cipro, Sulfa Antibiotics GENERAL ORDERS: CBC w Diff Urgent (19:29 09/06/2016 EKoroleva P.A.-C) (19:44 JRomanelli R.N.) CMP Urgent (19:29 09/06/2016 EKoroleva P.A.-C) (19:44 JRomanelli R.N.) UA-Culture if indicated Urgent (19:29 09/06/2016 EKoroleva P.A.-C) (Cancelled: Duplicate Order19:47 CHategekimana) UA-Culture if indicated Urgent (19:30 09/06/2016 EKoroleva P.A.-C) (Ack 19:50 CHategekimana) (21:44 JRomanelli R.N.) Lipase Urgent (20:16 09/06/2016 EKoroleva P.A.-C) (21:45 JRomanelli R.N.) MEDICATION ORDERS: Toradol IM 30 mg (NOW) (19:29 09/06/2016 EKoroleva P.A.-C) (Ack 20:34 JQuivey R.N.) (20:36 JRomanelli R.N.) IV FLUIDS: IV Saline Lock (19:29 09/06/2016 EKoroleva P.A.-C) (19:45 JRomanelli R.N.) KCl IV 10meQ (Run no faster than 10 units/hr) (20:32 09/06/2016 EKoroleva P.A.-C) (Ack 20:34 JQuivey R.N.) (21:47 JRomanelli R.N.) Dilaudid IV 1 mg (HIGH ALERT MEDICATION, NOW) (20:56 09/06/2016 EKoroleva P.A.-C) (21:34 JRomanelli R.N.) Rocephin IV 2 gm/50mL (NOW) (21:29 09/06/2016 Phillipleshahab P.A.-C) (21:45 Lyudmila R.N.) IV NS : initial bolus none -, then 200 mL/hr (NOW) (21:51 09/06/2016 Lyudmila R.N. verbal order read back to Bailee VilledaAEdis-C) (21:52 Lyudmila REdisN.) ORDER SHEET NOTES: [Electronically signed by Danny Hernandez R.N. (23:24 09/06/2016)] [Electronically signed by Fabiola Velasco-Mauro (23:36 09/06/2016)] [Electronically locked/signed by Danny Hernandez R.N. (23:24 09/06/2016)]
--- NOTE | 2016-09-06 22:27 | ED CLINICAL REPORT ---
Clinical Report - Physicians/Mid Levels [facility] [address] [place] [address] 09/06/2016 19:02 Patient: AMOR NASCIMENTO Time Seen: 2016. Arrived- By private vehicle. HISTORY OF PRESENT ILLNESS Chief Complaint: ABDOMINAL PAIN. This started just prior to arrival. (patient was abdominal pain over the last 2 days, worsening. Denies diarrhea or nausea or vomiting. Reports was recently seen for nephrolithiasis, however the kidneys and has not given her any problems. Denies any fevers or chills. Denies any history of diverticulitis. Denies any urgency or frequency or dysuria. Patient reports prior right ovarian concern from previous CT. Reports she does not have a left ovary. denies any recent antibiotic use.). REVIEW OF SYSTEMS No constipation, black stools, difficulty with urination, pain with urination or fever. No chills. All systems otherwise negative, except as recorded above. PAST HISTORY Problems: Cellulitis. Hematuria. Renal Colic. Ureterolithiasis. Tendonitis. Back Injury. Sciatica. Back Pain. Fever. Headache. Abdominal Muscle Strain. Hypokalemia. Atypical Chest Pain. Gastroenteritis. Ovarian Cyst. Gastroesophageal Reflux Disease. Pancreatitis. Anxiety Reaction. Depression. Asthma. Bronchitis. Lung Disease. Immunizations. Hypertension. UTI - Urinary Tract Infection. Abdominal Pain. Diabetes Mellitus. LNMP - Last Normal Menstrual Period. Additional Surgeries: Adenoidectomy. Appendectomy. Gastric bypass. Hysterectomy. Pannaectomy. Thigh. Thigh lift. Tonsillectomy. Medications: Cefdinir Oral 300 mg, 2x a day. Atenolol Oral (Tablet 100 mg) 1 tablet, daily. BusPIRone HCl Oral (Tablet 15 mg) 1 tablet, 3x a day. CeleXA Oral (Tablet 20 mg) 1 tablet, daily. Claritin Oral (Tablet 10 mg) 1 tablet, daily. Doxycycline 100mg, 2x a day. Hydrochlorothiazide Oral (Tablet 25 mg) 1 tablet, daily. Ibuprofen Oral (Tablet 600 mg) 1 tablet, 2x a day. MetFORMIN HCl Oral (Tablet 500 mg) 1 tablet, 2x a day. Omeprazole Oral 40 mg, daily. Allergies: Cipro. Sulfa Antibiotics. SOCIAL HISTORY Never smoker. No alcohol use or drug use. ADDITIONAL NOTES The nursing notes have been reviewed. PHYSICAL EXAM Vital Signs: 09/06/2016 19:09 BP: 102/74. HR: 60. RR: 16. O2 saturation: 97%. Temp: 98.2 F. 09/06/2016 19:09 Pain level now: 7/10. Appearance: Alert. Eyes: Eyes normal inspection. ENT: Nose normal. Pharynx normal. Neck: Normal inspection. Neck supple. CVS: Normal heart rate and rhythm. Heart sounds normal. Respiratory: No respiratory distress. Breath sounds normal. Chest nontender. No decreased air movement. Abdomen: Mild tenderness in the left lower quadrant. No mass. No distention, mass present or guarding. Back: Normal inspection. No CVA tenderness. Skin: Skin warm. Normal skin color. Neuro: Oriented X 3. LABS, X-RAYS, AND EKG Laboratory Tests: UA-Culture if indicated: (DEVIN: 09/06/2016 20:45) ( MsgRcvd 09/06/2016 21:26) Final results Test Result Flag Units (Reference) URINE COLOR YELLOW URINE APPEARANCE CLEAR URINE GLUCOSE NEGATIVE (NEGATIVE) URINE BILIRUBIN NEGATIVE (NEGATIVE) URINE KETONE NEGATIVE (NEGATIVE) URINE SPECIFIC GRAVITY 1.020 (1.010-1.030) URINE PH 6.0 (5.0-8.0) URINE PROTEIN NEGATIVE (NEGATIVE) URINE UROBILINOGEN 0.2 EU/dL (0.2-1.0) URINE NITRITE NEGATIVE (NEGATIVE) URINE BLOOD NEGATIVE (NEGATIVE) URINE LEUK ESTERASE POSITIVE (NEGATIVE) URINE RBC 1-3 rbc/hpf (0-1) URINE WBC 5-10 wbc/hpf (0-1) URINE EPITHELIAL CELLS 5-10 EPI/hpf (0-5) URINE BACTERIA FEW (1+) (NONE SEEN) URINE COMMENT CULTURE INDICATED 5-10 Hyaline Casts/l.p.f.URINE CULTURES ARE SET-UP BASED ON THE FOLLOWING CRITERIA:POSITIVE NITRITEPOSITIVE LEUKOCYTE ESTERASEGREATER THAN 10 WHITE BLOOD CELLSMODERATE (2+) OR GREATER BACTERIA CBC w Diff: (DEVIN: 09/06/2016 19:35) ( MsgRcvd 09/06/2016 19:59) Final results Test Result Flag Units (Reference) WHITE BLOOD COUNT 9.3 K/uL (4.5-11.5) RED BLOOD COUNT 4.31 M/uL (4.00-5.20) HEMOGLOBIN 13.8 gm/dL (12.0-16.0) HEMATOCRIT 41.0 % (36.0-46.0) MEAN CELL VOLUME 95 fL (80-100) MEAN CORPUSCULAR HGB 32 pg (26-34) MEAN CORPUSCULAR HGB CONC 34 g/dL (31-37) RED CELL DISTRIBUTION WIDTH 12.9 % (11.6-14.8) PLATELET COUNT 201 K/uL (150-400) NEUTROPHIL % 51.1 % (50-75) LYMPH % 37.1 % (25-40) MONO % 6.8 % (3-14) EOSINOPHIL % 3.6 % (0-4) BASOPHIL % 1.4 % (0-2) Lipase: (DEVIN: 09/06/2016 20:00) ( [facility] 09/06/2016 20:31) Final results Test Result Flag Units (Reference) LIPASE 255 U/L (73-393) CMP: (DEVIN: 09/06/2016 20:00) ( [facility] 09/06/2016 20:31) Final results Test Result Flag Units (Reference) GLUCOSE 141 H mg/dL (70-110) BUN 36 H mg/dL (7-18) CREATININE 1.0 mg/dL (0.6-1.3) Estimated GFR >60 mL/min Estimated GFR- >60 mL/min Note: Persistent reduction over 3 months in eGFR<60 mL/min/1.73 m2 defines CKD. Patients with eGFR values>=60 mL/min/1.73 m2 may also have CKD if evidence ofpersistent proteinuria. Additional information may be foundat [email or web address].org. SODIUM 143 mmol/L (136-145) POTASSIUM 2.9 *L mmol/L (3.5-5.1) CRITICAL RESULTS CALLEDCalled to SAEID OROURKE IN ED 09/06/162029Were 2 patient identifiers used? YWas the result read back? Y CHLORIDE 103 mmol/L (98-107) CARBON DIOXIDE 31 mmol/L (21-32) CALCIUM 9.4 mg/dL (8.5-10.1) TOTAL PROTEIN 7.4 g/dL (6.4-8.2) ALBUMIN 3.9 g/dL (3.3-5.0) BILIRUBIN, TOTAL 0.5 mg/dL (0.0-1.0) ALKALINE PHOSPHATASE 93 U/L (46-116) AST (SGOT) 13 L U/L (15-37) ALT (SGPT) 20 U/L (12-78) MAGNESIUM 1.9 mg/dL (1.8-2.4) . Note - Tests: (OLD CT REVIEW: IMPRESSION: 1. Mild left hydronephrosis secondary to a 6 mm left proximal ureteral calculus. 2. There are two smaller 2 mm nonobstructing left renal calculi. 3. Status post gastric sleeve surgery. 4. Mild chronic splenomegaly (15 cm). 5. Status post lower ventral abdominal wall surgery. 6. Status post supracervical hysterectomy. 7. Findings suggest moderate enlargement of the right ovary (6.5 cm) with cystic and solid components. Ultrasound is recommended to further evaluate after the patient's acute illness (4-6 weeks). 8. Findings discussed with Dr. Hathaway. 9. Findings discussed with the patient on 06/18/2016 Dr. De La Torre). PROGRESS AND PROCEDURES Course of Care: Patient with hypokalemia in the ER, such was replaced with 10 mEq of IV potassium. Patient was given some fluid. Addition she has also with urology. Signs of acute cystitis, we'll treat in light of the kidneys. Otherwise she has afebrile. throughout suspect septic nephrolithiasis. Patient understands plan. 09/06/2016 22:25 BP: 128/80. HR: 60. RR: 16. O2 saturation: 97%. Temp: 98.1 F. Pain level now: 0/10. Patient is stable. Symptoms better. Patient/family counseled. Disposition: Discharged. CLINICAL IMPRESSION Left renal colic with calculus with urinary tract infection and hematuria. Hypokalemia INSTRUCTIONS Drink plenty of fluids. Warnings: Further evaluation is necessary. Prescription Medications: Hydrocodone/APAP 7.5mg / 325mg: take 1 orally every 6 hours. Dispense twelve (12). No refill. Cephalexin 500 mg: take 1 capsule orally every 8 hours for 10 days. No refill. Klor-Con 10 mEq: take 2 tablets orally every 8 hours. Dispense twenty (20). No refills. Substitution is permissible. Diflucan 150 mg tablets: initially take for 1 day. No refill. Substitution is permissible. Flomax 0.4 mg: take 1 orally every 24 hours. Dispense ten (10). No refills. Follow-up: Follow up with a specialist in three days. (Electronically signed by Fabiola Velasco P.A.-C 09/06/2016 23:36)
--- NOTE | 2016-09-06 23:36 | ED MED RECONCILIATION SUMMARY ---
Patient: AMOR NASCIMENTO Medication Reconciliation Report [facility] VisitID: [id number] [address] [place] [address] 41y, F Registration Date/Time: 09/06/2016 Weight: 102.5 kg Height/Length: 66 in. BMI: 36.5 ALLERGIES: Cipro, Sulfa Antibiotics The patient's Home Medications are listed below: THE FOLLOWING MEDICATIONS NEED TO BE RECONCILED: Atenolol Oral (100 mg) 1 tablet, daily BusPIRone HCl Oral (15 mg) 1 tablet, 3x a day Cefdinir Oral 300 mg, 2x a day CeleXA Oral (20 mg) 1 tablet, daily Claritin Oral (10 mg) 1 tablet, daily Doxycycline 100mg, 2x a day Hydrochlorothiazide Oral (25 mg) 1 tablet, daily Ibuprofen Oral (600 mg) 1 tablet, 2x a day MetFORMIN HCl Oral (500 mg) 1 tablet, 2x a day Omeprazole Oral 40 mg, daily The source(s) of the original Home Medication information: patient The following Medications were given to the patient in the Emergency Department: Toradol [IM] IM 30 mg, administered: 09/06/2016 8:21:00 PM Dilaudid [IVP] IVP 1 mg, administered: 09/06/2016 9:34:00 PM Rocephin [IVPB] IVPB bolus 0, then 2 gm 100 mL/hr, administered: 09/06/2016 9:35:00 PM KCL [IVPB] IVPB bolus 0, then 10 meq 50 mL/hr, administered: 09/06/2016 9:22:00 PM IV NS IV Fluids bolus 0, then 200 mL/hr, administered: 09/06/2016 9:25:00 PM The following Medications were prescribed to the patient: Hydrocodone/APAP 7.5mg / 325mg: take 1 orally every 6 hours. Dispense twelve (12). No refill. -- Fabiola Velasco, P.A.-C Cephalexin 500 mg: take 1 capsule orally every 8 hours for 10 days. No refill. -- Fabiola Velasco, P.A.-C Klor-Con 10 mEq: take 2 tablets orally every 8 hours. Dispense twenty (20). No refills. Substitution is permissible. -- Fabiola Velasco P.A.-C Diflucan 150 mg tablets: initially take for 1 day. No refill. Substitution is permissible. -- Fabiola Velasco P.A.-C Flomax 0.4 mg: take 1 orally every 24 hours. Dispense ten (10). No refills. -- Fabiola Velasco P.A.-C
--- NOTE | 2016-09-06 23:36 | ED DISCHARGE INSTRUCTIONS ---
Patient: AMOR NASCIMENTO General Instructions [facility] VisitID: [id number] [place] [address] 41y, F Registration Date/Time: 09/06/2016 Left renal colic with calculus with urinary tract infection and hematuria. Hypokalemia INSTRUCTIONS Drink plenty of fluids. Warnings: Further evaluation is necessary. Prescription Medications: Hydrocodone/APAP 7.5mg / 325mg: take 1 orally every 6 hours. Dispense twelve (12). No refill. Cephalexin 500 mg: take 1 capsule orally every 8 hours for 10 days. No refill. Klor-Con 10 mEq: take 2 tablets orally every 8 hours. Dispense twenty (20). No refills. Substitution is permissible. Diflucan 150 mg tablets: initially take for 1 day. No refill. Substitution is permissible. Flomax 0.4 mg: take 1 orally every 24 hours. Dispense ten (10). No refills. Follow-up: Follow up with a specialist in three days. ADDITIONAL INFORMATION Blood In The Urine Blood in the urine ("hematuria") has many possible causes. If it occurs after an injury (such as a car accident or fall), it is most often a sign of bruising to the kidney or bladder. Common medical causes of blood in the urine include urinary tract infection, kidney stone, inflammation, tumors, or certain other diseases of the kidney or bladder. Menstruation can cause blood to appear in the urine sample, although it is not coming from the urinary tract. If only a trace amount of blood is present, it will show up on the urine test, even though the urine may be yellow and not pink or red. This may occur with any of the above conditions, as well as heavy exercise or high fever. In this case, your doctor may want to repeat the urine test on another day. This will show if the blood is still present. If so, then other tests can be done to find out the cause. Home Care: If your urine does not appear bloody (pink, brown or red) then you do not need to restrict your activity in any way. If you can see blood in your urine, rest and avoid heavy exertion until your next exam. Do not use aspirin or anti-inflammatory medicine like ibuprofen (Motrin, Advil) or naproxen (Naprosyn, Aleve). These thin the blood and may increase bleeding. Follow Up with your doctor or as advised by our staff. If you were injured and had blood in your urine, you should have a repeat urine test in 1-2 days. Contact your doctor or return to this facility for this test. [NOTE: A radiologist will review any X-rays that were taken. We will notify you of any new findings that may affect your care.] Get Prompt Medical Attention if any of the following occur: Bright red blood or blood clots in the urine (if a new symptom) Weakness, dizziness or fainting New groin, abdominal or back pain Fever of 100.4F (38C) or higher, or as directed by your healthcare provider Repeated vomiting Bleeding from nose, gums or easy bruising Bladder Infection,Female (Adult) A bladder infection ("cystitis" or "UTI") usually causes a constant urge to urinate and a burning when passing urine. Urine may be cloudy, smelly or dark. There may be pain in the lower abdomen. A bladder infection occurs when bacteria from the vaginal area enter the bladder opening (urethra). This can occur from sexual intercourse, wearing tight clothing, dehydration and other factors. Home Care: Drink lots of fluids (at least 6-8 glasses a day, unless you must restrict fluids for other medical reasons). This will force the medicine into your urinary system and flush the bacteria out of your body. Avoid sexual intercourse until your symptoms are gone. Avoid caffeine, alcohol and spicy foods. These can irritate the bladder. A bladder infection is treated with antibiotics. You may also be given Pyridium (generic = phenazopyridine) to reduce the burning sensation. This medicine will cause your urine to become a bright orange color. The orange urine may stain clothing. You may wear a pad or panty-liner to protect clothing. Preventing Future Infections: Always wipe from front to back after a bowel movement. Keep the genital area clean and dry. Drink plenty of fluids each day to avoid dehydration. Both sexual partners should wash before intercourse. Urinate right after intercourse to flush out the bladder. Wear cotton underwear and cotton-lined panty hose; avoid tight-fitting pants. If you are on control pills and are having frequent bladder infections, discuss with your doctor. Follow Up: Return to this facility or see your doctor if ALL symptoms are not gone after three days of treatment. Get Prompt Medical Attention if any of the following occur: Fever of 100.4F (38C) or higher, or as directed by your healthcare provider No improvement by the third day of treatment Increasing back or abdominal pain Repeated vomiting; unable to keep medicine down Weakness, dizziness or fainting Vaginal discharge Pain, redness or swelling in the labia (outer vaginal area) Flank Pain[Uncertain Cause] The flank is the area between the upper abdomen and the back. Pain here is often related to the kidneyan infection or a kidney stone. Other causes of flank pain include spinal arthritis, pinched nerve from a disk injury, back muscle strain or spasm. The cause of your flank pain is not certain and further tests may be needed. Home Care: You may use acetaminophen (Tylenol) or ibuprofen (Motrin, Advil) to control pain, unless another medicine was prescribed. [NOTE: If you have chronic liver or kidney disease or ever had a stomach ulcer or GI bleeding, talk with your doctor before using these medicines.] If the cause of your pain is coming from the muscles, ice or heat may give relief. During the first two days after injury, apply an ICE PACK to the painful area for 20 minutes every 2-4 hours. This will reduce swelling and pain. HEAT (hot shower, hot bath or heating pad) works well for muscle spasm. You can start with ice, then switch to heat after two days. Some patients feel best alternating ice and heat treatments. Use the one method that feels the best to you. Follow Up with your doctor or as advised by our staff for further evaluation if your symptoms are not improving over the next few days. Return Promptly or contact your doctor if any of the following occur: Repeated vomiting Fever of 100.4F (38C) or higher, or as directed by your healthcare provider Increasing flank pain Pain that spreads to the front of the abdomen Dizziness, weakness or fainting Blood in your urine Burning with urination or frequent urination Increasing pain in the leg Numbness or weakness in the leg Hypokalemia Hypokalemia means a low level of potassium in the blood. This most often occurs in patients who take diuretics (water pills). It can also occur due to severe vomiting or diarrhea. A mild case usually causes no symptoms. It is only found with blood testing. More severe potassium loss causes generalized weakness, muscle or abdominal cramping, heart palpitations (rapid or irregular heartbeats) and low blood pressure. Home Care: 1) Take any potassium supplements prescribed. 2) Eat foods rich in potassium. The highest amount is found in artichoke, baked potatoes, spinach, cantaloupe, honeydew melon, cod, halibut, salmon, and scallops. White, red, or quispe beans are also very good sources. A modest amount is found in orange juice, bananas, carrots, and tomato juice. 3) Certain types of diuretics (water pills), such as Lasix (furosemide), require that you take potassium supplements for as long as you take the diuretic pills. If you are taking a diuretic, discuss the need for potassium supplements with your doctor. Follow Up with your doctor for a repeat blood test within the next week or as advised by our staff. Get Prompt Medical Attention if any of the following occur: -- Increased weakness -- Feeling dizzy -- Irregular heartbeat, extra beats or very fast heart rate -- Fainting spell Hydrocodone Bitartrate, Acetaminophen Oral tablet What is this medicine? ACETAMINOPHEN; HYDROCODONE (a set a LUANNE chata fen; wander droe KOE done) is a pain reliever. It is used to treat mild to moderate pain. How should I use this medicine? Take this medicine by mouth. Swallow it with a full glass of water. Follow the directions on the prescription label. If the medicine upsets your stomach, take the medicine with food or milk. Do not take more than you are told to take. Talk to your marketing underwriter regarding the use of this medicine in children. This medicine is not approved for use in children. What side effects may I notice from receiving this medicine? Side effects that you should report to your doctor or health hearing care practitioner as soon as possible: allergic reactions like skin rash, itching or hives, swelling of the face, lips, or tongue breathing problems confusion feeling faint or lightheaded, falls stomach pain yellowing of the eyes or skin Side effects that usually do not require medical attention (report to your doctor or health hearing care practitioner if they continue or are bothersome): nausea, vomiting stomach upset What may interact with this medicine? alcohol antihistamines isoniazid medicines for depression, anxiety, or psychotic disturbances medicines for sleep muscle relaxants naltrexone narcotic medicines (opiates) for pain phenobarbital ritonavir tramadol What if I miss a dose? If you miss a dose, take it as soon as you can. If it is almost time for your next dose, take only that dose. Do not take double or extra doses. Where should I keep my medicine? Keep out of the reach of children. This medicine can be abused. Keep your medicine in a safe place to protect it from theft. Do not share this medicine with anyone. Selling or giving away this medicine is dangerous and against the law. Store at room temperature between 15 and 30 degrees C (59 and 86 degrees F). Protect from light. Keep container tightly closed. Throw away any unused medicine after the expiration date. Discard unused medicine and used packaging carefully. Pets and children can be harmed if they find used or lost packages. What should I tell my health care provider before I take this medicine? They need to know if you have any of these conditions: brain tumor Crohn's disease, inflammatory bowel disease, or ulcerative colitis drink more than 3 alcohol-containing drinks per day drug abuse or addiction head injury heart or circulation problems kidney disease or problems going to the bathroom liver disease lung disease, asthma, or breathing problems an unusual or allergic reaction to acetaminophen, hydrocodone, other opioid analgesics, other medicines, foods, dyes, or preservatives or trying to get breast-feeding What should I watch for while using this medicine? Tell your doctor or health hearing care practitioner if your pain does not go away, if it gets worse, or if you have new or a different type of pain. You may develop tolerance to the medicine. Tolerance means that you will need a higher dose of the medicine for pain relief. Tolerance is normal and is expected if you take the medicine for a long time. Do not suddenly stop taking your medicine because you may develop a severe reaction. Your body becomes used to the medicine. This does NOT mean you are addicted. Addiction is a behavior related to getting and using a drug for a non-medical reason. If you have pain, you have a medical reason to take pain medicine. Your doctor will tell you how much medicine to take. If your doctor wants you to stop the medicine, the dose will be slowly lowered over time to avoid any side effects. You may get drowsy or dizzy when you first start taking the medicine or change doses. Do not drive, use machinery, or do anything that may be dangerous until you know how the medicine affects you. Stand or sit up slowly. There are different types of narcotic medicines (opiates) for pain. If you take more than one type at the same time, you may have more side effects. Give your health care provider a list of all medicines you use. Your doctor will tell you how much medicine to take. Do not take more medicine than directed. Call emergency for help if you have problems breathing. The medicine will cause constipation. Try to have a bowel movement at least every 2 to 3 days. If you do not have a bowel movement for 3 days, call your doctor or health hearing care practitioner. Too much acetaminophen can be very dangerous. Do not take Tylenol (acetaminophen) or medicines that contain acetaminophen with this medicine. Many non-prescription medicines contain acetaminophen. Always read the labels carefully. Cephalexin Monohydrate Oral tablet What is this medicine? CEPHALEXIN (sef a NEWTON in) is a cephalosporin antibiotic. It is used to treat certain kinds of bacterial infections It will not work for colds, flu, or other viral infections. How should I use this medicine? Take this medicine by mouth with a full glass of water. Follow the directions on the prescription label. This medicine can be taken with or without food. Take your medicine at regular intervals. Do not take your medicine more often than directed. Take all of your medicine as directed even if you think you are better. Do not skip doses or stop your medicine early. Talk to your marketing underwriter regarding the use of this medicine in children. While this drug may be prescribed for selected conditions, precautions do apply. What side effects may I notice from receiving this medicine? Side effects that you should report to your doctor or health hearing care practitioner as soon as possible: allergic reactions like skin rash, itching or hives, swelling of the face, lips, or tongue breathing problems pain or trouble passing urine redness, blistering, peeling or loosening of the skin, including inside the mouth severe or watery diarrhea unusually weak or tired yellowing of the eyes, skin Side effects that usually do not require medical attention (report to your doctor or health hearing care practitioner if they continue or are bothersome): gas or heartburn genital or anal irritation headache joint or muscle pain nausea, vomiting What may interact with this medicine? probenecid some other antibiotics What if I miss a dose? If you miss a dose, take it as soon as you can. If it is almost time for your next dose, take only that dose. Do not take double or extra doses. There should be at least 4 to 6 hours between doses. Where should I keep my medicine? Keep out of the reach of children. Store at room temperature between 59 and 86 degrees F (15 and 30 degrees C). Throw away any unused medicine after the expiration date. What should I tell my health care provider before I take this medicine? They need to know if you have any of these conditions: kidney disease stomach or intestine problems, especially colitis an unusual or allergic reaction to cephalexin, other cephalosporins, penicillins, other antibiotics, medicines, foods, dyes or preservatives or trying to get breast-feeding What should I watch for while using this medicine? Tell your doctor or health hearing care practitioner if your symptoms do not begin to improve in a few days. Do not treat diarrhea with over the counter products. Contact your doctor if you have diarrhea that lasts more than 2 days or if it is severe and watery. If you have diabetes, you may get a false-positive result for sugar in your urine. Check with your doctor or health hearing care practitioner. Fluconazole Oral tablet What is this medicine? FLUCONAZOLE (floo BHAVANA na zole) is an antifungal medicine. It is used to treat certain kinds of fungal or yeast infections. How should I use this medicine? Take this medicine by mouth. Follow the directions on the prescription label. Do not take your medicine more often than directed. Talk to your marketing underwriter regarding the use of this medicine in children. Special care may be needed. This medicine has been used in children as young as 6 months of age. What side effects may I notice from receiving this medicine? Side effects that you should report to your doctor or health hearing care practitioner as soon as possible: allergic reactions like skin rash or itching, hives, swelling of the lips, mouth, tongue, or throat dark urine feeling dizzy or faint irregular heartbeat or chest pain redness, blistering, peeling or loosening of the skin, including inside the mouth trouble breathing unusual bruising or bleeding vomiting yellowing of the eyes or skin Side effects that usually do not require medical attention (report to your doctor or health hearing care practitioner if they continue or are bothersome): changes in how food tastes diarrhea headache stomach upset or nausea What may interact with this medicine? Do not take this medicine with any of the following medications: cisapride pimozide red yeast rice This medicine may also interact with the following medications: control pills cyclosporine diuretics like hydrochlorothiazide medicines for diabetes that are taken by mouth medicines for high cholesterol like atorvastatin, lovastatin or simvastatin phenytoin ramelteon rifabutin rifampin some medicines for anxiety or sleep tacrolimus terfenadine theophylline tofacitinib warfarin What if I miss a dose? If you miss a dose, take it as soon as you can. If it is almost time for your next dose, take only that dose. Do not take double or extra doses. Where should I keep my medicine? Keep out of the reach of children. Store at room temperature below 30 degrees C (86 degrees F). Throw away any medicine after the expiration date. What should I tell my health care provider before I take this medicine? They need to know if you have any of these conditions: electrolyte abnormalities history of irregular heart beat kidney disease an unusual or allergic reaction to fluconazole, other azole antifungals, medicines, foods, dyes, or preservatives or trying to get breast-feeding What should I watch for while using this medicine? Visit your doctor or health hearing care practitioner for regular checkups. If you are taking this medicine for a long time you may need blood work. Tell your doctor if your symptoms do not improve. Some fungal infections need many weeks or months of treatment to cure. Alcohol can increase possible damage to your liver. Avoid alcoholic drinks. If you have a vaginal infection, do not have sex until you have finished your treatment. You can wear a sanitary napkin. Do not use tampons. Wear freshly washed cotton, not synthetic, panties. You have been given the following additional information: Hematuria Bladder Infection, Female (Adult) Flank Pain, Uncertain Cause Hypokalemia Hydrocodone Bitartrate, Acetaminophen Oral tablet Cephalexin Monohydrate Oral tablet Fluconazole Oral tablet (Electronically signed by Fabiola Velasco P.A.-C 09/06/2016 23:36)
--- NOTE | 2016-09-06 23:36 | ED MAR SUMMARY ---
..... Medication Administration Record [facility] [address] [place] [address] Patient: AMOR NASCIMENTO Visit ID: [id number] 41y, F Weight: 102.5 kg Height/Length: 66 in BMI: 36.5 ALLERGIES: Cipro, Sulfa Antibiotics Given 20:09/06/2016 Danny Hernandez R.N. Medication Administered: TORADOL [IM] (KETOROLAC TROMETHAMINE), Dose: 30 mg IM. Medication Ordered: Toradol IM 30 mg (NOW). Start 21:22 09/06/2016 Danny Hernandez R.N., Stop 22:20 09/06/2016 Danny Hernandez R.N. Medication Administered: KCL [IVPB] (POTASSIUM CHLORIDE), Dose: 10 meq IVPB over 60 minute(s), Rate: 50 mL/hr, Dispensed: 50 mL bag, Site: #1 right forearm. Medication Ordered: KCl IV 10meQ (Run no faster than 10 units/hr). Start 21:25 09/06/2016 Danny Hernandez R.N., Stop 22:15 09/06/2016 Danny Hernandez R.N. Medication Administered: IV NS (SALINE), Dose: IV Fluids over 5 hour(s), Rate: 200 mL/hr, Site: #1 right forearm. Medication Ordered: IV NS : initial bolus none -, then 200 mL/hr (NOW). Given 21:34 09/06/2016 Danny Hernandez R.N. Medication Administered: DILAUDID [IVP] (HYDROMORPHONE HCL PF), Dose: 1 mg IVP over 2 minute(s), Site: #1 right forearm. Medication Ordered: Dilaudid IV 1 mg (HIGH ALERT MEDICATION, NOW). Start 21:35 09/06/2016 Danny Hernandez R.N., Stop 22:05 09/06/2016 Danny Hernandez R.N. Medication Administered: ROCEPHIN [IVPB] (CEFTRIAXONE SODIUM), Dose: 2 gm IVPB, Rate: 100 mL/hr, Dispensed: 50 mL bag, Site: #1 right forearm. Medication Ordered: Rocephin IV 2 gm/50mL (NOW).
--- NOTE | 2016-09-06 23:36 | ED MED RECONCILIATION SUMMARY ---
Patient: AMOR NASCIMENTO Medication Reconciliation Report [facility] VisitID: [id number] [address] [place] [address] 41y, F Registration Date/Time: 09/06/2016 Weight: 102.5 kg Height/Length: 66 in. BMI: 36.5 ALLERGIES: Cipro, Sulfa Antibiotics The patient's Home Medications are listed below: THE FOLLOWING MEDICATIONS NEED TO BE RECONCILED: Atenolol Oral (100 mg) 1 tablet, daily BusPIRone HCl Oral (15 mg) 1 tablet, 3x a day Cefdinir Oral 300 mg, 2x a day CeleXA Oral (20 mg) 1 tablet, daily Claritin Oral (10 mg) 1 tablet, daily Doxycycline 100mg, 2x a day Hydrochlorothiazide Oral (25 mg) 1 tablet, daily Ibuprofen Oral (600 mg) 1 tablet, 2x a day MetFORMIN HCl Oral (500 mg) 1 tablet, 2x a day Omeprazole Oral 40 mg, daily The source(s) of the original Home Medication information: patient The following Medications were given to the patient in the Emergency Department: Toradol [IM] IM 30 mg, administered: 09/06/2016 8:21:00 PM Dilaudid [IVP] IVP 1 mg, administered: 09/06/2016 9:34:00 PM Rocephin [IVPB] IVPB bolus 0, then 2 gm 100 mL/hr, administered: 09/06/2016 9:35:00 PM KCL [IVPB] IVPB bolus 0, then 10 meq 50 mL/hr, administered: 09/06/2016 9:22:00 PM IV NS IV Fluids bolus 0, then 200 mL/hr, administered: 09/06/2016 9:25:00 PM The following Medications were prescribed to the patient: Hydrocodone/APAP 7.5mg / 325mg: take 1 orally every 6 hours. Dispense twelve (12). No refill. -- Fabiola Velasco, P.A.-C Cephalexin 500 mg: take 1 capsule orally every 8 hours for 10 days. No refill. -- Fabiola Velasco, P.A.-C Klor-Con 10 mEq: take 2 tablets orally every 8 hours. Dispense twenty (20). No refills. Substitution is permissible. -- Fabiola Velasco P.A.-C Diflucan 150 mg tablets: initially take for 1 day. No refill. Substitution is permissible. -- Fabiola Velasco P.A.-C Flomax 0.4 mg: take 1 orally every 24 hours. Dispense ten (10). No refills. -- Fabiola Velasco P.A.-C
--- NOTE | 2016-09-06 23:36 | ED MAR SUMMARY ---
..... Medication Administration Record [facility] [address] [place] [address] [address] Patient: AMOR NASCIMENTO Visit ID: [id number] 41y, F Weight: 102.5 kg Height/Length: 66 in BMI: 36.5 ALLERGIES: Cipro, Sulfa Antibiotics Given 20:09/06/2016 Danny Hernandez R.N. Medication Administered: TORADOL [IM] (KETOROLAC TROMETHAMINE), Dose: 30 mg IM. Medication Ordered: Toradol IM 30 mg (NOW). Start 21:22 09/06/2016 Danny Hernandez R.N., Stop 22:20 09/06/2016 Danny Hernandez R.N. Medication Administered: KCL [IVPB] (POTASSIUM CHLORIDE), Dose: 10 meq IVPB over 60 minute(s), Rate: 50 mL/hr, Dispensed: 50 mL bag, Site: #1 right forearm. Medication Ordered: KCl IV 10meQ (Run no faster than 10 units/hr). Start 21:25 09/06/2016 Danny Hernandez R.N., Stop 22:15 09/06/2016 Danny Hernandez R.N. Medication Administered: IV NS (SALINE), Dose: IV Fluids over 5 hour(s), Rate: 200 mL/hr, Site: #1 right forearm. Medication Ordered: IV NS : initial bolus none -, then 200 mL/hr (NOW). Given 21:34 09/06/2016 Danny Hernandez R.N. Medication Administered: DILAUDID [IVP] (HYDROMORPHONE HCL PF), Dose: 1 mg IVP over 2 minute(s), Site: #1 right forearm. Medication Ordered: Dilaudid IV 1 mg (HIGH ALERT MEDICATION, NOW). Start 21:35 09/06/2016 Danny Hernandez R.N., Stop 22:05 09/06/2016 Danny Hernandez R.N. Medication Administered: ROCEPHIN [IVPB] (CEFTRIAXONE SODIUM), Dose: 2 gm IVPB, Rate: 100 mL/hr, Dispensed: 50 mL bag, Site: #1 right forearm. Medication Ordered: Rocephin IV 2 gm/50mL (NOW).
== END 2016-09-06 22:30 | disposition home or self-care (01) ==
LOC: ED SRH 19:02
DX: N20.0 Calculus of kidney (principal); N39.0 Urinary tract infection, site not specified; R31.9 Hematuria, unspecified; E87.6 Hypokalemia; I10 Essential (primary) hypertension; E11.9 Type 2 diabetes mellitus without complications; Z79.899 Other long term (current) drug therapy; Z79.84 Long term (current) use of oral hypoglycemic drugs; Z88.2 Allergy status to sulfonamides; Z88.1 Allergy status to other antibiotic agents
CPT/HCPCS: 90004; 90074; 90100; 90469; 92235; 92720; 95059

== ENCOUNTER 2016-09-17 17:46 | Emergency (ER) | payer OTHER ==
--- NOTE | 2016-09-17 21:40 | ED NURSING NOTES ---
Clinical Report - Nurses [facility] [address] [place] [address] 09/17/2016 17:46 Patient: AMOR NASCIMENTO TRIAGE Triage time 17:54. Acuity: LEVEL 4. Chief Complaint: (left sided abdominal pain, flank pain post op LEFT SIDED URETEROSCOPY). Alert. No acute distress. --18:00 Jessica Celestin R.N. 17:54 09/17/16. BP: 105/77. HR: 59. RR: 16 (regular and unlabored). O2 saturation: 100%. Temp: 97.7 F (oral). Marino-Winters pain scale: 6/10. --18:00 Jessica Celestin R.N. Weight: 104.7 kg stated. Height/Length: 66 inches Per Patient. BMI: 37.3. --17:57 Jessica Celestin R.N. Medications Atenolol Oral (Tablet 100 mg) 1 tablet, daily. BusPIRone HCl Oral (Tablet 15 mg) 1 tablet, 3x a day. CeleXA Oral (Tablet 20 mg) 1 tablet, daily. Claritin Oral (Tablet 10 mg) 1 tablet, daily. Hydrochlorothiazide Oral (Tablet 25 mg) 1 tablet, daily. Ibuprofen Oral (Tablet 600 mg) 1 tablet, 2x a day. MetFORMIN HCl Oral (Tablet 500 mg) 1 tablet, 2x a day. Omeprazole Oral 40 mg, daily. --17:58 Jessica Celestin R.N. Percocet Oral (Tablet 5-325 mg) 1 1/2-3 tabs, Q6hrs as needed. --18:00 Jessica Celestin R.N. Tamsulosin HCl Oral 0.4 mg, at bedtime. --18:01 Jessica Celestin R.N. Phenazopyridine HCl Oral. --21:40 Pippa Stacy The following entry was struck by Pippa Stacy, 21:41 (04/14/17) Reason - other(course complete). <<STRICKEN ENTRY-- Cefdinir Oral 300 mg, 2x a day. --17:58 Jessica Celestin R.N. --END STRIKE>>. Allergies Cipro. Sulfa Antibiotics. --17:58 Jessica Celestin R.N. Lyrica. --17:58 Jessica Celestin R.N. Gabapentin. --17:58 Jessica Celestin R.N. History Arrived by private vehicle. Historian: patient. Primary physician ([facility] (Surgeon- Alexis Elmore)). Onset. (about 2 days ago). PAST MEDICAL HX: Immunizations: up-to-date. Sexual history - heterosexual. SOCIAL HX: Never smoker. No alcohol use or drug use. NUTRITIONAL RISK ASSESSMENT: The nutritional risk assessment revealed no deficiencies. FUNCTIONAL ASSESSMENT: Functional assessment: no impairments noted. --18:00 Jessica Celestin R.N. ADDITIONAL SURGERIES: Adenoidectomy. Appendectomy. Gastric bypass. Hysterectomy. Lithotripsy. Pannaectomy. Thigh. Thigh lift. Tonsillectomy. --17:59 Jessica Celestin R.N. Interventions ID band on patient. To treatment room. --18:00 Jessica Celestin R.N. NURSING PROGRESS NOTES Head of bed elevated. Two patient identifiers checked. Call light placed in reach. Side rails up x 1. Bed placed in lowest position. Brakes of bed on. --18:02 Jessica Celestin R.N. Patient ready for evaluation- chart flagged. --18:02 Jessica Celestin R.N. 19:37 09/17/2016 Site #1 started via IV in the right antecubital space with an 20g angiocath, with aseptic technique and good blood return. Blood drawn: rainbow set. Labeled in the presence of the patient and sent to the lab. Saline lock flushed with 10 mL saline. --19:37 Pippa Stayc 19:44 09/17/2016 Dilaudid (HYDROmorphone HCl PF) IVP 1 mg given over 2 minute(s) via site #1. Allergies verified, confirmed 5 rights and sedative warning given to the patient. IV patency established. IV site checked: no pain, redness, or swelling. IV flushed thoroughly pre- and post-medication administration. IVP given by RN. --19:44 Pippa Stacy 19:44 09/17/2016 Toradol IVP 30 mg given over 2 minute(s) via site #1. Allergies verified and confirmed 5 rights. IV patency established. IV site checked: no pain, redness, or swelling. IV flushed thoroughly pre- and post-medication administration. IVP given by RN. --19:44 Pippa Stacy 20:52 09/17/2016 Dilaudid (HYDROmorphone HCl PF) IVP 1 mg given over 2 minute(s) via site #1. Allergies verified, confirmed 5 rights and sedative warning given to the patient. IV patency established. IV site checked: no pain, redness, or swelling. IV flushed thoroughly pre- and post-medication administration. --20:54 Danny Santoyo R.N. 20:54 09/17/16. BP: 97/66. HR: 59. RR: 15. O2 saturation: 96%. Pain level now: 610. --20:55 Danny Santoyo R.N. DISPOSITION / DISCHARGE 21:48 09/17/2016 Site #1 removed upon discharge. Catheter intact. Bandaid applied. --21:48 Pippa Stacy Departure time: 21:49. Condition at departure: improved. No learning barriers present. Discharge instructions provided and reviewed with the patient. Reviewed medication(s) side effects, precautions, dosing and course information. Prescription(s) given to the patient. Work note given. Patient verbalized understanding. Written instructions provided in Georgian. No warning instructions, treatment instructions, referrals given to the patient, diet instructions or activity restrictions. No follow up contact number given or stop smoking instructions. The patient was discharged by the physician. She was discharged home and accompanied by family. She left the Emergency Department ambulatory and via private vehicle. Family member driving. FALL RISK ASSESSMENT: Fall risk assessment completed. No fall risk identified. --21:49 Pippa Stacy 21:48 09/17/16. BP: 101/57. HR: 62. RR: 16. O2 saturation: 100%. Temp: deferred. Pain level now: 07/16. --21:49 Abundio Stacy. Locked/Released at 09/17/2016 21:50 by Pippa Stacy
--- NOTE | 2016-09-17 21:40 | ED ORDER SUMMARY ---
..... Patient: AMOR NASCIMENTO OrderSheet [facility] VisitID: [id number] [place] [address] 41y, F Registration Date/Time: 09/17/2016 ORDER SHEET Weight: 104.7 kg (stated) Allergies: Cipro, Sulfa Antibiotics, Lyrica, Gabapentin GENERAL ORDERS: CBC w Diff Urgent (19:09/17/2016 Liyah MAHARAJ) (Ack 19:36 Radha) (19:37 TBowen R.N.) UA-Culture if indicated Urgent (19:09/17/2016 Liyah MAHARAJ) (19:29 TBowanna R.N.) CMP Urgent (:09/17/2016 Liyah MAHARAJ) (Ack 19:37 Radha) (19:37 TBowen R.N.) MEDICATION ORDERS: IV FLUIDS: Dilaudid IV 1 mg (NOW) (19:23 09/17/2016 Liyah MAHARAJ) (19:44 TBowen R.N.) Toradol IV 30 mg (NOW) (19:09/17/2016 Liyah MAHARAJ) (19:44 TBowanna R.N.) IV Saline Lock (19:23 09/17/2016 Liyah MAHARAJ) (20:04 TBowen R.N.) Dilaudid IV 1 mg (NOW) (20:34 09/17/2016 Liyah MAHARAJ) (Ack 20:50 JQuivey R.N.) (20:54 JQuivey R.N.) ORDER SHEET NOTES: [Electronically signed by Shanika Hannon R.N. (21:50 09/17/2016)] [Electronically signed by Lupillo Gill MD (15:29 09/21/2016)] [Electronically locked/signed by Shanika Hannon R.N. (21:50 09/17/2016)]
--- NOTE | 2016-09-17 21:40 | ED NURSING NOTES ---
Clinical Report - Nurses [facility] [address] [place] [address] 09/17/2016 17:46 Patient: AMOR NASCIMENTO TRIAGE Triage time 17:54. Acuity: LEVEL 4. Chief Complaint: (left sided abdominal pain, flank pain post op LEFT SIDED URETEROSCOPY). Alert. No acute distress. --18:00 Jessica Celestin R.N. 17:54 09/17/16. BP: 105/77. HR: 59. RR: 16 (regular and unlabored). O2 saturation: 100%. Temp: 97.7 F (oral). Marino-Winters pain scale: 6/10. --18:00 Jessica Celestin R.N. Weight: 104.7 kg stated. Height/Length: 66 inches Per Patient. BMI: 37.3. --17:57 Jessica Celestin R.N. Medications Atenolol Oral (Tablet 100 mg) 1 tablet, daily. BusPIRone HCl Oral (Tablet 15 mg) 1 tablet, 3x a day. CeleXA Oral (Tablet 20 mg) 1 tablet, daily. Claritin Oral (Tablet 10 mg) 1 tablet, daily. Hydrochlorothiazide Oral (Tablet 25 mg) 1 tablet, daily. Ibuprofen Oral (Tablet 600 mg) 1 tablet, 2x a day. MetFORMIN HCl Oral (Tablet 500 mg) 1 tablet, 2x a day. Omeprazole Oral 40 mg, daily. --17:58 Jessica Celestin R.N. Percocet Oral (Tablet 5-325 mg) 1 1/2-3 tabs, Q6hrs as needed. --18:00 Jessica Celestin R.N. Tamsulosin HCl Oral 0.4 mg, at bedtime. --18:01 Jessica Celestin R.N. Phenazopyridine HCl Oral. --21:40 Pippa Stacy The following entry was struck by Pippa Stacy, 21:41 (04/14/17) Reason - other(course complete). <<STRICKEN ENTRY-- Cefdinir Oral 300 mg, 2x a day. --17:58 Jessica Celestin R.N. --END STRIKE>>. Allergies Cipro. Sulfa Antibiotics. --17:58 Jessica Celestin R.N. Lyrica. --17:58 Jessica Celestin R.N. Gabapentin. --17:58 Jessica Celestin R.N. History Arrived by private vehicle. Historian: patient. Primary physician ([facility] (Surgeon- Alexis Elmore)). Onset. (about 2 days ago). PAST MEDICAL HX: Immunizations: up-to-date. Sexual history - heterosexual. SOCIAL HX: Never smoker. No alcohol use or drug use. NUTRITIONAL RISK ASSESSMENT: The nutritional risk assessment revealed no deficiencies. FUNCTIONAL ASSESSMENT: Functional assessment: no impairments noted. --18:00 Jessica Celestin R.N. ADDITIONAL SURGERIES: Adenoidectomy. Appendectomy. Gastric bypass. Hysterectomy. Lithotripsy. Pannaectomy. Thigh. Thigh lift. Tonsillectomy. --17:59 Jessica Celestin R.N. Interventions ID band on patient. To treatment room. --18:00 Jessica Celestin R.N. NURSING PROGRESS NOTES Head of bed elevated. Two patient identifiers checked. Call light placed in reach. Side rails up x 1. Bed placed in lowest position. Brakes of bed on. --18:02 Jessica Celestin R.N. Patient ready for evaluation- chart flagged. --18:02 Jessica Celestin R.N. 19:37 09/17/2016 Site #1 started via IV in the right antecubital space with an 20g angiocath, with aseptic technique and good blood return. Blood drawn: rainbow set. Labeled in the presence of the patient and sent to the lab. Saline lock flushed with 10 mL saline. --19:37 Pippa Stacy 19:44 09/17/2016 Dilaudid (HYDROmorphone HCl PF) IVP 1 mg given over 2 minute(s) via site #1. Allergies verified, confirmed 5 rights and sedative warning given to the patient. IV patency established. IV site checked: no pain, redness, or swelling. IV flushed thoroughly pre- and post-medication administration. IVP given by RN. --19:44 Pippa Stacy 19:44 09/17/2016 Toradol IVP 30 mg given over 2 minute(s) via site #1. Allergies verified and confirmed 5 rights. IV patency established. IV site checked: no pain, redness, or swelling. IV flushed thoroughly pre- and post-medication administration. IVP given by RN. --19:44 Pippa Stacy 20:52 09/17/2016 Dilaudid (HYDROmorphone HCl PF) IVP 1 mg given over 2 minute(s) via site #1. Allergies verified, confirmed 5 rights and sedative warning given to the patient. IV patency established. IV site checked: no pain, redness, or swelling. IV flushed thoroughly pre- and post-medication administration. --20:54 Danny Santoyo R.N. 20:54 09/17/16. BP: 97/66. HR: 59. RR: 15. O2 saturation: 96%. Pain level now: 610. --20:55 Danny Santoyo R.N. DISPOSITION / DISCHARGE 21:48 09/17/2016 Site #1 removed upon discharge. Catheter intact. Bandaid applied. --21:48 Pippa Stacy Departure time: 21:49. Condition at departure: improved. No learning barriers present. Discharge instructions provided and reviewed with the patient. Reviewed medication(s) side effects, precautions, dosing and course information. Prescription(s) given to the patient. Work note given. Patient verbalized understanding. Written instructions provided in Spanish. No warning instructions, treatment instructions, referrals given to the patient, diet instructions or activity restrictions. No follow up contact number given or stop smoking instructions. The patient was discharged by the physician. She was discharged home and accompanied by family. She left the Emergency Department ambulatory and via private vehicle. Family member driving. FALL RISK ASSESSMENT: Fall risk assessment completed. No fall risk identified. --21:49 Pippa Stacy 21:48 09/17/16. BP: 101/57. HR: 62. RR: 16. O2 saturation: 100%. Temp: deferred. Pain level now: 07/16. --21:49 Abundio Stacy. Locked/Released at 09/17/2016 21:50 by Pippa Stacy
--- NOTE | 2016-09-17 21:40 | ED CLINICAL REPORT ---
Clinical Report - Physicians/Mid Levels [facility] [address] [place] [address] 09/17/2016 17:46 Patient: AMOR NASCIMENTO Time Seen: 18:11 Sep 17 2016. Arrived- By private vehicle. Historian- patient. CPT: ER phys charges level 4 (#[id number]). HISTORY OF PRESENT ILLNESS Chief Complaint: FLANK PAIN. This started about 2 days [employer] and is still present. It is described as "pain" and it is described as located in the left abdomen and the left flank. At its maximum, severity described as moderate. When seen in the E.D., severity described as moderate. Modifying factors. Not worsened by anything. Not relieved by anything. The patient has had nausea. No loss of appetite, vomiting or diarrhea. No recent travel. Similar symptoms previously: Recent medical care: The patient was seen recently at another facility in the office (2 days [employer]). Diagnosis: (Kidney stone, stent placed after laser break-up of stone.). REVIEW OF SYSTEMS No constipation, black stools, hematemesis, difficulty with urination or pain with urination. No urinary frequency, fever, sore throat, chest pain or difficulty breathing. No cough, joint pain, skin rash, chills or back pain. All systems otherwise negative, except as recorded above. PAST HISTORY Adenoidectomy. Appendectomy. Gastric bypass. Hysterectomy. Lithotripsy. Pannaectomy. Thigh. Thigh lift. Tonsillectomy. Medications: Phenazopyridine HCl Oral. Tamsulosin HCl Oral 0.4 mg, at bedtime. Percocet Oral (Tablet 5-325 mg) 1 1/2-3 tabs, Q6hrs as needed. Atenolol Oral (Tablet 100 mg) 1 tablet, daily. BusPIRone HCl Oral (Tablet 15 mg) 1 tablet, 3x a day. CeleXA Oral (Tablet 20 mg) 1 tablet, daily. Claritin Oral (Tablet 10 mg) 1 tablet, daily. Hydrochlorothiazide Oral (Tablet 25 mg) 1 tablet, daily. Ibuprofen Oral (Tablet 600 mg) 1 tablet, 2x a day. MetFORMIN HCl Oral (Tablet 500 mg) 1 tablet, 2x a day. Omeprazole Oral 40 mg, daily. Allergies: Cipro. Gabapentin. Lyrica. Sulfa Antibiotics. SOCIAL HISTORY Never smoker. No alcohol use or drug use. ADDITIONAL NOTES The nursing notes have been reviewed. PHYSICAL EXAM Vital Signs: 09/17/2016 17:54 BP: 105/77. HR: 59. RR: 16. O2 saturation: 100%. Temp: 97.7 F. Marino-Winters pain scale: 6/10. Appearance: Alert. Appears to be in pain. Patient in moderate distress. Eyes: Eyes normal inspection. ENT: Pharynx normal. Neck: Normal inspection. Neck supple. CVS: Normal heart rate and rhythm. Heart sounds normal. Pulses normal. Respiratory: No respiratory distress. Breath sounds normal. Chest nontender. Abdomen: Soft and nontender. Bowel sounds normal. Back: Normal inspection. Mild CVA tenderness on the left. Skin: Normal skin color. No rash. Extremities: Extremities exhibit normal ROM. No calf tenderness. No lower extremity edema. Neuro: Oriented X 3. No motor deficit. No sensory deficit. LABS, X-RAYS, AND EKG Laboratory Tests: UA-Culture if indicated: (DEVIN: 09/17/2016 19:25) ( MsgRcvd 09/17/2016 19:56) Final results Test Result Flag Units (Reference) URINE COLOR ORANGE PYRIDIUM PRESENT. INTERPRET URINE DIPSTICK RESULTS WITHCAUTION. PYRIDIUM MAY INTERFERE COLORIMETRICALLY. URINE APPEARANCE CLOUDY URINE GLUCOSE TRACE (NEGATIVE) URINE BILIRUBIN ICTOTEST NEGATIVE (NEGATIVE) URINE KETONE NEGATIVE (NEGATIVE) URINE SPECIFIC GRAVITY 1.025 (1.010-1.030) URINE PH 5.5 (5.0-8.0) URINE PROTEIN 2+ (NEGATIVE) URINE UROBILINOGEN 4.0 EU/dL (0.2-1.0) The urobilinogen reagent area may react with interferingsubstances known to react with Joni's reagent such asp-aminosalicylic acid and sulfonamides. Atypical colorreactions may be obtained in the presence of highconcentrations of p-aminobenzoic acid. The absence ofurobilinogen cannot be determined with this test. URINE NITRITE POSITIVE (NEGATIVE) URINE BLOOD 3+ (NEGATIVE) URINE LEUK ESTERASE TRACE (NEGATIVE) URINE RBC 50-75 rbc/hpf (0-1) URINE WBC 3-5 wbc/hpf (0-1) URINE EPITHELIAL CELLS 0-1 EPI/hpf (0-5) URINE BACTERIA NONE SEEN (NONE SEEN) URINE COMMENT CULTURE INDICATED URINE CULTURES ARE SET-UP BASED ON THE FOLLOWING CRITERIA:POSITIVE NITRITEPOSITIVE LEUKOCYTE ESTERASEGREATER THAN 10 WHITE BLOOD CELLSMODERATE (2+) OR GREATER BACTERIA CBC w Diff: (DEVIN: 09/17/2016 18:35) ( [facility] 09/17/2016 20:01) Final results Test Result Flag Units (Reference) WHITE BLOOD COUNT 9.2 K/uL (4.5-11.5) RED BLOOD COUNT 3.87 L M/uL (4.00-5.20) HEMOGLOBIN 12.2 gm/dL (12.0-16.0) HEMATOCRIT 37.4 % (36.0-46.0) MEAN CELL VOLUME 97 fL (80-100) MEAN CORPUSCULAR HGB 32 pg (26-34) MEAN CORPUSCULAR HGB CONC 33 g/dL (31-37) RED CELL DISTRIBUTION WIDTH 13.3 % (11.6-14.8) PLATELET COUNT 186 K/uL (150-400) NEUTROPHIL % 52.7 % (50-75) LYMPH % 37.6 % (25-40) MONO % 6.2 % (3-14) EOSINOPHIL % 3.0 % (0-4) BASOPHIL % 0.5 % (0-2) CMP: (DEVIN: 09/17/2016 18:35) ( [facility] [place] 09/17/2016 19:55) Final results Test Result Flag Units (Reference) GLUCOSE 106 mg/dL (70-110) BUN 32 H mg/dL (7-18) CREATININE 0.9 mg/dL (0.6-1.3) Estimated GFR >60 mL/min Estimated GFR- >60 mL/min Note: Persistent reduction over 3 months in eGFR<60 mL/min/1.73 m2 defines CKD. Patients with eGFR values>=60 mL/min/1.73 m2 may also have CKD if evidence ofpersistent proteinuria. Additional information may be foundat www.[email or web address].org. SODIUM 140 mmol/L (136-145) POTASSIUM 4.1 mmol/L (3.5-5.1) CHLORIDE 101 mmol/L (98-107) CARBON DIOXIDE 37 H mmol/L (21-32) CALCIUM 9.8 mg/dL (8.5-10.1) TOTAL PROTEIN 7.0 g/dL (6.4-8.2) ALBUMIN 3.7 g/dL (3.3-5.0) BILIRUBIN, TOTAL 0.4 mg/dL (0.0-1.0) ALKALINE PHOSPHATASE 84 U/L (46-116) AST (SGOT) 12 L U/L (15-37) ALT (SGPT) 17 U/L (12-78) Culture, Urine: (DEVIN: 09/17/2016 19:25) ( MsgRcvd 09/19/2016 10:03) Final results Test Result Flag Units (Reference) CULTURE, URINE DATE: 09/19/16 NO SIGNIFICANT ISOLATION: NO SIGNIFICANT ISOLATION PRELIM REPORT: FINAL REPORT . PROGRESS AND PROCEDURES Course of Care: Heplock Dilaudid 1 mg IV times 2 Toradol 30 mg IV Patient is stable. Symptoms better. Patient/family counseled. Disposition: Discharged. Condition: stable. CLINICAL IMPRESSION Post-op pain due to lithotripsy on the left. Early sign of urinary infection. INSTRUCTIONS No strenuous activity. Rest. Drink plenty of fluids. (Use oxycodone for breakthrough pain .). Warnings: Further evaluation is necessary. SEDATIVE MEDICATION: You were given sedative medication during your visit. Do not drive or operate dangerous machinery. GENERAL WARNINGS: Return or contact your physician immediately if your condition worsens or changes unexpectedly, if not improving as expected, or if other problems arise. Your Current Medications: CONTINUE TAKING THE FOLLOWING MEDICATIONS: Atenolol Oral : Tablet 100 mg, 1 tablet daily. BusPIRone HCl Oral : Tablet 15 mg, 1 tablet 3x a day. CeleXA Oral : Tablet 20 mg, 1 tablet daily. Claritin Oral : Tablet 10 mg, 1 tablet daily. Hydrochlorothiazide Oral : Tablet 25 mg, 1 tablet daily. Ibuprofen Oral : Tablet 600 mg, 1 tablet 2x a day. MetFORMIN HCl Oral : Tablet 500 mg, 1 tablet 2x a day. Omeprazole Oral : 40 mg daily. Percocet Oral : Tablet 5-325 mg, 1 1/2-3 tabs Q6hrs, prn. Tamsulosin HCl Oral : 0.4 mg at bedtime. Prescription Medications: Macrobid 100 mg: Take 1 capsule orally every 12 hours for 7 days. No refills. Substitution is permissible. Diflucan 150 mg tablet: take 1 tablet orally today. No refills. Substitution is permissible. Dilaudid 2 mg po q 4 hours prn pain # 15 no refill. Follow-up: Follow up with your doctor Tuesday in three days. Call for the next available appointment. Understanding of the discharge instructions verbalized by patient and family. (Electronically signed by Lupillo Gill MD 09/21/2016 15:29)
--- NOTE | 2016-09-17 21:40 | ED ORDER SUMMARY ---
..... Patient: AMOR NASCIMENTO OrderSheet [facility] VisitID: [id number] [place] [address] 41y, F Registration Date/Time: 09/17/2016 ORDER SHEET Weight: 104.7 kg (stated) Allergies: Cipro, Sulfa Antibiotics, Lyrica, Gabapentin GENERAL ORDERS: CBC w Diff Urgent (19:09/17/2016 Liyah MAHARAJ) (Ack 19:36 Radha) (19:37 TBowen R.N.) UA-Culture if indicated Urgent (19:09/17/2016 Liyah MAHARAJ) (19:29 TBowanna R.N.) CMP Urgent (:09/17/2016 Liyah MAHARAJ) (Ack 19:37 Radha) (19:37 TBowen R.N.) MEDICATION ORDERS: IV FLUIDS: Dilaudid IV 1 mg (NOW) (19:23 09/17/2016 Liyah MAHARAJ) (19:44 TBowen R.N.) Toradol IV 30 mg (NOW) (19:09/17/2016 Liyah MAHARAJ) (19:44 TBowanna R.N.) IV Saline Lock (19:23 09/17/2016 Liyah MAHARAJ) (20:04 TBowen R.N.) Dilaudid IV 1 mg (NOW) (20:34 09/17/2016 Liyah MAHARAJ) (Ack 20:50 JQuivey R.N.) (20:54 JQuivey R.N.) ORDER SHEET NOTES: [Electronically signed by Shanika Hannon R.N. (21:50 09/17/2016)] [Electronically signed by Lupillo Gill MD (15:29 09/21/2016)] [Electronically locked/signed by Shanika Hannon R.N. (21:50 09/17/2016)]
--- NOTE | 2016-09-17 21:40 | ED CLINICAL REPORT ---
Clinical Report - Physicians/Mid Levels [facility] [address] [place] [address] 09/17/2016 17:46 Patient: AMOR NASCIMENTO Time Seen: 18:11 Sep 17 2016. Arrived- By private vehicle. Historian- patient. CPT: ER phys charges level 4 (#[id number]). HISTORY OF PRESENT ILLNESS Chief Complaint: FLANK PAIN. 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 It is described as "pain" and it is described as located in the left abdomen and the left flank. At its maximum, severity described as moderate. When seen in the E.D., severity described as moderate. Modifying factors. Not worsened by anything. Not relieved by anything. The patient has had nausea. No loss of appetite, vomiting or diarrhea. No recent travel. 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 Diagnosis: (Kidney stone, stent placed after laser break-up of stone.). REVIEW OF SYSTEMS No constipation, black stools, hematemesis, difficulty with urination or pain with urination. No urinary frequency, fever, sore throat, chest pain or difficulty breathing. No cough, joint pain, skin rash, chills or back pain. All systems otherwise negative, except as recorded above. PAST HISTORY Adenoidectomy. Appendectomy. Gastric bypass. Hysterectomy. Lithotripsy. Pannaectomy. Thigh. Thigh lift. Tonsillectomy. Medications: Phenazopyridine HCl Oral. Tamsulosin HCl Oral 0.4 mg, at bedtime. Percocet Oral (Tablet 5-325 mg) 1 1/2-3 tabs, Q6hrs as needed. Atenolol Oral (Tablet 100 mg) 1 tablet, daily. BusPIRone HCl Oral (Tablet 15 mg) 1 tablet, 3x a day. CeleXA Oral (Tablet 20 mg) 1 tablet, daily. Claritin Oral (Tablet 10 mg) 1 tablet, daily. Hydrochlorothiazide Oral (Tablet 25 mg) 1 tablet, daily. Ibuprofen Oral (Tablet 600 mg) 1 tablet, 2x a day. MetFORMIN HCl Oral (Tablet 500 mg) 1 tablet, 2x a day. Omeprazole Oral 40 mg, daily. Allergies: Cipro. Gabapentin. Lyrica. Sulfa Antibiotics. SOCIAL HISTORY Never smoker. No alcohol use or drug use. ADDITIONAL NOTES The nursing notes have been reviewed. PHYSICAL EXAM Vital Signs: 09/17/2016 17:54 BP: 105/77. HR: 59. RR: 16. O2 saturation: 100%. Temp: 97.7 F. Marino-Winters pain scale: 6/10. Appearance: Alert. Appears to be in pain. Patient in moderate distress. Eyes: Eyes normal inspection. ENT: Pharynx normal. Neck: Normal inspection. Neck supple. CVS: Normal heart rate and rhythm. Heart sounds normal. Pulses normal. Respiratory: No respiratory distress. Breath sounds normal. Chest nontender. Abdomen: Soft and nontender. Bowel sounds normal. Back: Normal inspection. Mild CVA tenderness on the left. Skin: Normal skin color. No rash. Extremities: Extremities exhibit normal ROM. No calf tenderness. No lower extremity edema. Neuro: Oriented X 3. No motor deficit. No sensory deficit. LABS, X-RAYS, AND EKG Laboratory Tests: UA-Culture if indicated: (DEVIN: 09/17/2016 19:25) ( MsgRcvd 09/17/2016 19:56) Final results Test Result Flag Units (Reference) URINE COLOR ORANGE PYRIDIUM PRESENT. INTERPRET URINE DIPSTICK RESULTS WITHCAUTION. PYRIDIUM MAY INTERFERE COLORIMETRICALLY. URINE APPEARANCE CLOUDY URINE GLUCOSE TRACE (NEGATIVE) URINE BILIRUBIN ICTOTEST NEGATIVE (NEGATIVE) URINE KETONE NEGATIVE (NEGATIVE) URINE SPECIFIC GRAVITY 1.025 (1.010-1.030) URINE PH 5.5 (5.0-8.0) URINE PROTEIN 2+ (NEGATIVE) URINE UROBILINOGEN 4.0 EU/dL (0.2-1.0) The urobilinogen reagent area may react with interferingsubstances known to react with Joni's reagent such asp-aminosalicylic acid and sulfonamides. Atypical colorreactions may be obtained in the presence of highconcentrations of p-aminobenzoic acid. The absence ofurobilinogen cannot be determined with this test. URINE NITRITE POSITIVE (NEGATIVE) URINE BLOOD 3+ (NEGATIVE) URINE LEUK ESTERASE TRACE (NEGATIVE) URINE RBC 50-75 rbc/hpf (0-1) URINE WBC 3-5 wbc/hpf (0-1) URINE EPITHELIAL CELLS 0-1 EPI/hpf (0-5) URINE BACTERIA NONE SEEN (NONE SEEN) URINE COMMENT CULTURE INDICATED URINE CULTURES ARE SET-UP BASED ON THE FOLLOWING CRITERIA:POSITIVE NITRITEPOSITIVE LEUKOCYTE ESTERASEGREATER THAN 10 WHITE BLOOD CELLSMODERATE (2+) OR GREATER BACTERIA CBC w Diff: (DEVIN: 09/17/2016 18:35) ( [facility] [place] 09/17[place] 20:01) Final results Test Result Flag Units (Reference) WHITE BLOOD COUNT 9.2 K/uL (4.5-11.5) RED BLOOD COUNT 3.87 L M/uL (4.00-5.20) HEMOGLOBIN 12.2 gm/dL (12.0-16.0) HEMATOCRIT 37.4 % (36.0-46.0) MEAN CELL VOLUME 97 fL (80-100) MEAN CORPUSCULAR HGB 32 pg (26-34) MEAN CORPUSCULAR HGB CONC 33 g/dL (31-37) RED CELL DISTRIBUTION WIDTH 13.3 % (11.6-14.8) PLATELET COUNT 186 K/uL (150-400) NEUTROPHIL % 52.7 % (50-75) LYMPH % 37.6 % (25-40) MONO % 6.2 % (3-14) EOSINOPHIL % 3.0 % (0-4) BASOPHIL % 0.5 % (0-2) CMP: (DEVIN: 09/17/2016 18:35) ( [facility] 09/17/2016 19:55) Final results Test Result Flag Units (Reference) GLUCOSE 106 mg/dL (70-110) BUN 32 H mg/dL (7-18) CREATININE 0.9 mg/dL (0.6-1.3) Estimated GFR >60 mL/min Estimated GFR- >60 mL/min Note: Persistent reduction over 3 months in eGFR<60 mL/min/1.73 m2 defines CKD. Patients with eGFR values>=60 mL/min/1.73 m2 may also have CKD if evidence ofpersistent proteinuria. Additional information may be foundat [email or web address]. SODIUM 140 mmol/L (136-145) POTASSIUM 4.1 mmol/L (3.5-5.1) CHLORIDE 101 mmol/L (98-107) CARBON DIOXIDE 37 H mmol/L (21-32) CALCIUM 9.8 mg/dL (8.5-10.1) TOTAL PROTEIN 7.0 g/dL (6.4-8.2) ALBUMIN 3.7 g/dL (3.3-5.0) BILIRUBIN, TOTAL 0.4 mg/dL (0.0-1.0) ALKALINE PHOSPHATASE 84 U/L (46-116) AST (SGOT) 12 L U/L (15-37) ALT (SGPT) 17 U/L (12-78) Culture, Urine: (DEVIN: 09/17/2016 19:25) ( MsgRcvd 09/19/2016 10:03) Final results Test Result Flag Units (Reference) CULTURE, URINE DATE: 09/19/16 NO SIGNIFICANT ISOLATION: NO SIGNIFICANT ISOLATION PRELIM REPORT: FINAL REPORT . PROGRESS AND PROCEDURES Course of Care: Heplock Dilaudid 1 mg IV times 2 Toradol 30 mg IV Patient is stable. Symptoms better. Patient/family counseled. Disposition: Discharged. Condition: stable. CLINICAL IMPRESSION Post-op pain due to lithotripsy on the left. Early sign of urinary infection. INSTRUCTIONS No strenuous activity. Rest. Drink plenty of fluids. (Use oxycodone for breakthrough pain .). Warnings: Further evaluation is necessary. SEDATIVE MEDICATION: You were given sedative medication during your visit. Do not drive or operate dangerous machinery. GENERAL WARNINGS: Return or contact your physician immediately if your condition worsens or changes unexpectedly, if not improving as expected, or if other problems arise. Your Current Medications: CONTINUE TAKING THE FOLLOWING MEDICATIONS: Atenolol Oral : Tablet 100 mg, 1 tablet daily. BusPIRone HCl Oral : Tablet 15 mg, 1 tablet 3x a day. CeleXA Oral : Tablet 20 mg, 1 tablet daily. Claritin Oral : Tablet 10 mg, 1 tablet daily. Hydrochlorothiazide Oral : Tablet 25 mg, 1 tablet daily. Ibuprofen Oral : Tablet 600 mg, 1 tablet 2x a day. MetFORMIN HCl Oral : Tablet 500 mg, 1 tablet 2x a day. Omeprazole Oral : 40 mg daily. Percocet Oral : Tablet 5-325 mg, 1 1/2-3 tabs Q6hrs, prn. Tamsulosin HCl Oral : 0.4 mg at bedtime. Prescription Medications: Macrobid 100 mg: Take 1 capsule orally every 12 hours for 7 days. No refills. Substitution is permissible. Diflucan 150 mg tablet: take 1 tablet orally today. No refills. Substitution is permissible. Dilaudid 2 mg po q 4 hours prn pain # 15 no refill. Follow-up: Follow up with your doctor Tuesday in three days. Call for the next available appointment. Understanding of the discharge instructions verbalized by patient and family. (Electronically signed by Lupillo Gill MD 09/21/2016 15:29)
--- NOTE | 2016-09-21 15:29 | ED DISCHARGE INSTRUCTIONS ---
Patient: AMOR NASCIMENTO General Instructions [facility] VisitID: [id number] [place] [address] 41y, F Registration Date/Time: 09/17/2016 Post-op pain due to lithotripsy on the left. Early sign of urinary infection. INSTRUCTIONS No strenuous activity. Rest. Drink plenty of fluids. (Use oxycodone for breakthrough pain .). Warnings: Further evaluation is necessary. SEDATIVE MEDICATION: You were given sedative medication during your visit. Do not drive or operate dangerous machinery. GENERAL WARNINGS: Return or contact your physician immediately if your condition worsens or changes unexpectedly, if not improving as expected, or if other problems arise. Your Current Medications: CONTINUE TAKING THE FOLLOWING MEDICATIONS: Atenolol Oral : Tablet 100 mg, 1 tablet daily. BusPIRone HCl Oral : Tablet 15 mg, 1 tablet 3x a day. CeleXA Oral : Tablet 20 mg, 1 tablet daily. Claritin Oral : Tablet 10 mg, 1 tablet daily. Hydrochlorothiazide Oral : Tablet 25 mg, 1 tablet daily. Ibuprofen Oral : Tablet 600 mg, 1 tablet 2x a day. MetFORMIN HCl Oral : Tablet 500 mg, 1 tablet 2x a day. Omeprazole Oral : 40 mg daily. Percocet Oral : Tablet 5-325 mg, 1 1/2-3 tabs Q6hrs, prn. Tamsulosin HCl Oral : 0.4 mg at bedtime. Prescription Medications: Macrobid 100 mg: Take 1 capsule orally every 12 hours for 7 days. No refills. Substitution is permissible. Diflucan 150 mg tablet: take 1 tablet orally today. No refills. Substitution is permissible. Dilaudid 2 mg po q 4 hours prn pain # 15 no refill. Follow-up: Follow up with your doctor Tuesday in three days. Call for the next available appointment. Understanding of the discharge instructions verbalized by patient and family. No strenuous activity. Rest. (Electronically signed by Lupillo Gill MD 09/21/2016 15:29)
--- NOTE | 2016-09-21 15:29 | ED DISCHARGE INSTRUCTIONS ---
Patient: AMOR NASCIMENTO General Instructions [facility] VisitID: [id number] [place] [address] 41y, F Registration Date/Time: 09/17/2016 Post-op pain due to lithotripsy on the left. Early sign of urinary infection. INSTRUCTIONS No strenuous activity. Rest. Drink plenty of fluids. (Use oxycodone for breakthrough pain .). Warnings: Further evaluation is necessary. SEDATIVE MEDICATION: You were given sedative medication during your visit. Do not drive or operate dangerous machinery. GENERAL WARNINGS: Return or contact your physician immediately if your condition worsens or changes unexpectedly, if not improving as expected, or if other problems arise. Your Current Medications: CONTINUE TAKING THE FOLLOWING MEDICATIONS: Atenolol Oral : Tablet 100 mg, 1 tablet daily. BusPIRone HCl Oral : Tablet 15 mg, 1 tablet 3x a day. CeleXA Oral : Tablet 20 mg, 1 tablet daily. Claritin Oral : Tablet 10 mg, 1 tablet daily. Hydrochlorothiazide Oral : Tablet 25 mg, 1 tablet daily. Ibuprofen Oral : Tablet 600 mg, 1 tablet 2x a day. MetFORMIN HCl Oral : Tablet 500 mg, 1 tablet 2x a day. Omeprazole Oral : 40 mg daily. Percocet Oral : Tablet 5-325 mg, 1 1/2-3 tabs Q6hrs, prn. Tamsulosin HCl Oral : 0.4 mg at bedtime. Prescription Medications: Macrobid 100 mg: Take 1 capsule orally every 12 hours for 7 days. No refills. Substitution is permissible. Diflucan 150 mg tablet: take 1 tablet orally today. No refills. Substitution is permissible. Dilaudid 2 mg po q 4 hours prn pain # 15 no refill. Follow-up: Follow up with your doctor Tuesday in three days. Call for the next available appointment. Understanding of the discharge instructions verbalized by patient and family. No strenuous activity. Rest. (Electronically signed by Lupillo Gill MD 09/21/2016 15:29)
--- NOTE | 2016-09-21 15:29 | ED MED RECONCILIATION SUMMARY ---
Patient: AMOR NASCIMENTO Medication Reconciliation Report [facility] VisitID: [id number] [place] [address] 41y, F Registration Date/Time: 09/17/2016 Weight: 104.7 kg Height/Length: 66 in. BMI: 37.3 ALLERGIES: Cipro, Gabapentin, Lyrica, Sulfa Antibiotics The patient's Home Medications are listed below: CONTINUE TAKING THE FOLLOWING MEDICATIONS: Atenolol Oral (100 mg) 1 tablet, daily BusPIRone HCl Oral (15 mg) 1 tablet, 3x a day CeleXA Oral (20 mg) 1 tablet, daily Claritin Oral (10 mg) 1 tablet, daily Hydrochlorothiazide Oral (25 mg) 1 tablet, daily Ibuprofen Oral (600 mg) 1 tablet, 2x a day MetFORMIN HCl Oral (500 mg) 1 tablet, 2x a day Omeprazole Oral 40 mg, daily Percocet Oral (5-325 mg) 1 1/2-3 tabs, Q6hrs Tamsulosin HCl Oral 0.4 mg, at bedtime THE FOLLOWING MEDICATIONS NEED TO BE RECONCILED: Phenazopyridine HCl Oral The source(s) of the original Home Medication information: Not obtained. The following Medications were given to the patient in the Emergency Department: Dilaudid [IVP] IVP 1 mg, administered: 09/17/2016 7:44:00 PM Toradol [IVP] IVP 30 mg, administered: 09/17/2016 7:44:00 PM Dilaudid [IVP] IVP 1 mg, administered: 09/17/2016 8:52:00 PM The following Medications were prescribed to the patient: Dilaudid 2 mg po q 4 hours prn pain # 15 no refill. -- Lupillo Gill MD Macrobid 100 mg: Take 1 capsule orally every 12 hours for 7 days. No refills. Substitution is permissible. -- Lupillo Gill MD Diflucan 150 mg tablet: take 1 tablet orally today. No refills. Substitution is permissible. -- Lupillo Gill MD
--- NOTE | 2016-09-21 15:29 | ED MAR SUMMARY ---
..... Medication Administration Record [facility] [address] [place] [address] Patient: AMOR NASCIMENTO Visit ID: [id number] 41y, F Weight: 104.7 kg Height/Length: 66 in BMI: 37.3 ALLERGIES: Gabapentin, Lyrica, Cipro, Sulfa Antibiotics Given :09/17/2016 Pippa Stacy Medication Administered: DILAUDID [IVP] (HYDROMORPHONE HCL PF), Dose: 1 mg IVP over 2 minute(s), Site: #1 right AC. Medication Ordered: Dilaudid IV 1 mg (NOW). Given :09/17/2016 Pippa Stacy Medication Administered: TORADOL [IVP], Dose: 30 mg IVP over 2 minute(s), Site: #1 right AC. Medication Ordered: Toradol IV 30 mg (NOW). Given 20:52 09/17/2016 Danny Santoyo R.N. Medication Administered: DILAUDID [IVP] (HYDROMORPHONE HCL PF), Dose: 1 mg IVP over 2 minute(s), Site: #1 right AC. Medication Ordered: Dilaudid IV 1 mg (NOW).
--- NOTE | 2016-09-21 15:29 | ED MAR SUMMARY ---
..... Medication Administration Record [facility] [address] [place] [address] Patient: AMOR NASCIMENTO Visit ID: [id number] 41y, F Weight: 104.7 kg Height/Length: 66 in BMI: 37.3 ALLERGIES: Gabapentin, Lyrica, Cipro, Sulfa Antibiotics Given :09/17/2016 Pippa Stacy Medication Administered: DILAUDID [IVP] (HYDROMORPHONE HCL PF), Dose: 1 mg IVP over 2 minute(s), Site: #1 right AC. Medication Ordered: Dilaudid IV 1 mg (NOW). Given :09/17/2016 Pippa Stacy Medication Administered: TORADOL [IVP], Dose: 30 mg IVP over 2 minute(s), Site: #1 right AC. Medication Ordered: Toradol IV 30 mg (NOW). Given 20:52 09/17/2016 Danny Santoyo R.N. Medication Administered: DILAUDID [IVP] (HYDROMORPHONE HCL PF), Dose: 1 mg IVP over 2 minute(s), Site: #1 right AC. Medication Ordered: Dilaudid IV 1 mg (NOW).
--- NOTE | 2016-09-21 15:29 | ED MED RECONCILIATION SUMMARY ---
Patient: AMOR NASCIMENTO Medication Reconciliation Report [facility] VisitID: [id number] [place] [address] 41y, F Registration Date/Time: 09/17/2016 Weight: 104.7 kg Height/Length: 66 in. BMI: 37.3 ALLERGIES: Cipro, Gabapentin, Lyrica, Sulfa Antibiotics The patient's Home Medications are listed below: CONTINUE TAKING THE FOLLOWING MEDICATIONS: Atenolol Oral (100 mg) 1 tablet, daily BusPIRone HCl Oral (15 mg) 1 tablet, 3x a day CeleXA Oral (20 mg) 1 tablet, daily Claritin Oral (10 mg) 1 tablet, daily Hydrochlorothiazide Oral (25 mg) 1 tablet, daily Ibuprofen Oral (600 mg) 1 tablet, 2x a day MetFORMIN HCl Oral (500 mg) 1 tablet, 2x a day Omeprazole Oral 40 mg, daily Percocet Oral (5-325 mg) 1 1/2-3 tabs, Q6hrs Tamsulosin HCl Oral 0.4 mg, at bedtime THE FOLLOWING MEDICATIONS NEED TO BE RECONCILED: Phenazopyridine HCl Oral The source(s) of the original Home Medication information: Not obtained. The following Medications were given to the patient in the Emergency Department: Dilaudid [IVP] IVP 1 mg, administered: 09/17/2016 7:44:00 PM Toradol [IVP] IVP 30 mg, administered: 09/17/2016 7:44:00 PM Dilaudid [IVP] IVP 1 mg, administered: 09/17/2016 8:52:00 PM The following Medications were prescribed to the patient: Dilaudid 2 mg po q 4 hours prn pain # 15 no refill. -- Lupillo Gill MD Macrobid 100 mg: Take 1 capsule orally every 12 hours for 7 days. No refills. Substitution is permissible. -- Lupillo Gill MD Diflucan 150 mg tablet: take 1 tablet orally today. No refills. Substitution is permissible. -- Lupillo Gill MD
== END 2016-09-17 21:50 | disposition home or self-care (01) ==
LOC: ED SRH 17:46
DX: R10.32 Left lower quadrant pain (principal); G89.18 Other acute postprocedural pain; N39.0 Urinary tract infection, site not specified; Z96.0 Presence of urogenital implants; Z79.899 Other long term (current) drug therapy; Z79.891 Long term (current) use of opiate analgesic; Z88.1 Allergy status to other antibiotic agents; Z88.2 Allergy status to sulfonamides; Z88.8 Allergy status to other drugs, medicaments and biological substances
CPT/HCPCS: 90004; 90100; 90469; 95059

== ENCOUNTER 2016-10-08 18:06 | Emergency (ER) | payer OTHER ==
--- NOTE | 2016-10-08 19:39 | DIAGNOSTIC IMAGING REPORT ---
PROCEDURE: ABDOMEN/PELVIS WITH CONTRAST CLINICAL INDICATION: ABDOMINAL PAIN TECHNIQUE: 125 ml of Isovue 300 were injected intravenously and axial images were obtained of the abdomen and pelvis with sagittal and coronal reformations. COMPARISON: 06/17/2016 FINDINGS: ABDOMEN: Tiny hiatal hernia. Surgical changes of gastric sleeve formation. Mildly lobulated kidneys with a few sub-centimeter cystic structures in the cortex of each. No evidence of hydronephrosis. Mild splenomegaly, chronic. Clear lung bases. Normal sized heart. The liver, gallbladder, adrenal glands, and pancreas are normal. The abdominal aorta is normal in its course and caliber There are no suspicious calcifications, retroperitoneal adenopathy or masses. The upper bowel loops, and mesentery are normal. Intact anterior abdominal wall with postsurgical changes of abdominoplasty. No free fluid or inflammation. PELVIS: The appendix is not identified. No right lower quadrant inflammatory change. The right ovary is sitting anterior within the pelvis and has decreased in size, now measuring about 4.2 cm in greatest dimension, previously 6.5 cm. Dominant follicles have resolved. Left ovary was not identified. The uterus is surgically absent. The cervix remains. The pelvic small bowel loops are normal. Normal amount of stool in the colon and rectum. The urinary bladder, and pelvic vessels are normal. No adenopathy, free fluid, or pelvic mass. Enthesopathic change in both ischium tuberosity is. Vacuum phenomenon in the facet joints at the L3-4 level. IMPRESSION: 1. No acute process. 2. Interval decrease in size of previously multicystic right ovary. 3. Nonvisualization of the appendix which is likely surgically absent. No suspicious changes in the right lower quadrant. 4. No evidence of obstructive uropathy or urinary calcifications on the current study. 5. Findings called to the emergency room. All CT scans at this facility use dose modulation, iterative reconstruction, and/or weight-based dosing when appropriate to reduce radiation dose to as low as reasonably achievable.
--- NOTE | 2016-10-08 20:07 | ED ORDER SUMMARY ---
..... Patient: AMOR NASCIMENTO OrderSheet [facility] VisitID: [id number] [place] [address] 41y, F Registration Date/Time: 10/08/2016 ORDER SHEET Weight: 104.3 kg Allergies: Sulfa Antibiotics, Cipro, Neurontin GENERAL ORDERS: CBC w Diff Urgent (18:20 10/08/2016 EBonham per protocol) (18:27 EBonham) CMP Urgent (18:20 10/08/2016 EBonham per protocol) (18:27 EBonham) UA-Culture if indicated Urgent (18:20 10/08/2016 EBonham per protocol) [facility] Amylase Urgent (18:20 10/08/2016 EBonham per protocol) (18:27 E[facility]) Lipase Urgent (18:10/08/2016 EBonham per protocol) (18:27 [facility]) Urine Urgent (18:20 10/08/2016 EBonham per protocol) ([facility] 18:[facility] CT Abd/Pel w Cont (No) (pending) Urgent (18:32 10/08/2016 HBivens A.R.N.P.) (Ack 18:46 [facility]) (19:26 [facility] EKG - ER Stat (19:04 10/08/2016 HBivens A.R.N.P.) (19:[facility] MEDICATION ORDERS: K-Dur PO 60 meq (Do not crush or chew, NOW) (19:03 10/08/2016 HBivens A.R.N.P.) (19:10 EBonham) IV FLUIDS: IV Saline Lock (18:20 10/08/2016 EBonham per protocol) (18:27 EBonham) Toradol IV 30 mg (NOW) (18:32 10/08/2016 HBivens A.R.N.P.) (18:37 EBonham) Zofran IV 4 mg (NOW) (18:32 10/08/2016 HBivens A.R.N.P.) (18:37 EBonham) ORDER SHEET NOTES: [Electronically signed by Alyson Negrete (:10/08/2016)] [Electronically signed by Darby Roberts (21:08 10/08/2016)] [Electronically locked/signed by Alyson Negrete (:10/08/2016)]
--- NOTE | 2016-10-08 20:07 | ED NURSING NOTES ---
Clinical Report - Nurses [facility] [address] [place] [address] 10/08/2016 18:06 Patient: AMOR ANSCIMENTO TRIAGE Triage time 1810. Acuity: LEVEL 3. Chief Complaint: ABDOMINAL PAIN and NAUSEA. Alert. No acute distress. --18:18 Alyson Negrete 18:14 10/08/16. BP: 124/75. HR: 62. RR: 16. O2 saturation: 100%. Temp: 97.6 F. Pain level now 01/13. --18:18 Alyson Negrete. Weight: 104.3 kg. Height/Length: 66 inches. BMI: 37.1. --18:13 Alyson Negrete. Medications Hydrochlorothiazide Oral. --18:15 Alyson Negrete Metoprolol Succinate ER Oral. --18:15 Alyson Negrete Claritin Oral. --18:15 Alyson Negrete MetFORMIN HCl Oral. --18:15 Alyson Negrete CeleXA Oral. --18:15 Alyson Negrete BusPIRone HCl Oral. --18:16 Alyson Negrete Omeprazole Oral. --18:16 Alyson Negrete. Allergies Sulfa Antibiotics. --18:16 Alyson Negrete Cipro. --18:16 Alyson Negrete Neurontin. --18:16 Alyson Negrete. History Arrived by private vehicle. Historian: patient. Accompanied by friend. This started yesterday. ( RLQ pain). Treatment OCCUPATIONAL THERAPY ASST: None. SOCIAL HX: Never smoker. --18:18 Alyson Negrete. PROBLEMS: Hematuria. Renal Colic. Ureterolithiasis. Tendonitis. Back Injury. Sciatica. Back Pain. Headache. Hypokalemia. Atypical Chest Pain. Gastroenteritis. Diverticulitis. Ovarian Cyst. Gastroesophageal Reflux Disease. Pancreatitis. Anxiety Reaction. Depression. Asthma. Bronchitis. Lung Disease. Hypertension. UTI - Urinary Tract Infection. Abdominal Pain. Diabetes Mellitus. --18:17 Alyson Negrete. ADDITIONAL SURGERIES: Adenoidectomy. Appendectomy. Gastric bypass. Hysterectomy. Lithotripsy. Pannaectomy. Thigh lift. Tonsillectomy. --18:17 Alyson Negrete. Interventions ID band on patient. To treatment room. --18:18 Alyson Negrete. PHYSICAL ASSESSMENT Ambulatory to room. GENERAL / NEURO / PSYCH: Alert. Oriented X 4. Appears in no acute distress. HEENT: Mucous membranes are pink. RESPIRATORY: Respirations not labored. Breath sounds within normal limits. CVS: Normal sinus rhythm noted. Capillary refill less than 2 seconds. GI / : Obesity. Abdominal tenderness. Bowel sounds within normal limits. SKIN: Skin is warm and dry. --18:18 Alyson Negrete. NURSING PROGRESS NOTES Reassurance given. Two patient identifiers checked. Call light placed in reach. Bed placed in lowest position. Brakes of bed on. Patient ready for evaluation- chart flagged. --18:18 Alyson Negrete 18:27 10/08/2016 Site #1 started via IV in the left antecubital space with an 20g angiocath, with aseptic technique and good blood return; one attempt. Blood drawn: rainbow set. Labeled in the presence of the patient and sent to the lab. Saline lock flushed with 10 mL saline. --18:27 Alyson Negrete 18:37 10/08/2016 Toradol IVP 30 mg given. via site #1. Allergies verified and confirmed 5 rights. IV patency established. IV site checked: no pain, redness, or swelling. IV flushed thoroughly pre- and post-medication administration. IVP given by RN. --18:37 Alyson Negrete 18:37 10/08/2016 Zofran (Ondansetron HCl) IVP 4 mg given. via site #1. Allergies verified and confirmed 5 rights. IV patency established. IV site checked: no pain, redness, or swelling. IV flushed thoroughly pre- and post-medication administration. IVP given by RN. --18:37 Alyson Negrete 19:10 10/08/2016 K-DUR (Potassium Chloride Judith ER) PO 60 meq given. Allergies verified and confirmed 5 rights. --19:10 Alyson Negrete EKG time: (1914). EKG was ordered, performed by a tech and shown to the ED physician. --19:14 Nkechi Buckley. DISPOSITION / DISCHARGE 20:24 10/08/2016 Site #1 removed upon discharge. Pressure dressing applied. --20:24 Alyson Negrete Departure time: 2019. Condition at departure: unchanged and stable. No learning barriers present. Discharge instructions provided and reviewed with the patient. Patient verbalized understanding. Written instructions provided in Lao. The patient was discharged by the nurse practitioner. She was discharged home and accompanied by family. She left the Emergency Department ambulatory and via private vehicle. Family member driving. --20:24 Alyson Negrete 20:24 10/08/16. BP: 122/82. HR: 56. RR: 16. O2 saturation: 97%. Pain level now 7/10. --20:25 Alyson Negrete. Locked/Released at 10/08/2016 20:25 by Alyson Negrete,
--- NOTE | 2016-10-08 20:07 | ED CLINICAL REPORT ---
Clinical Report - Physicians/Mid Levels [facility] [address] [place] [address] 10/08/2016 18:06 Patient: AMOR NASCIMENTO Time Seen: 18:10; upon arrival, initial patient contact, initial documentation, patient care assumed. Arrived- By private vehicle. Historian- patient. HISTORY OF PRESENT ILLNESS Chief Complaint: ABDOMINAL PAIN. At its maximum, severity described as severe. When seen in the E.D., severity described as moderate. Modifying factors. Not worsened by anything. Not relieved by anything. It is described as "pain". No radiation. It is described as located in the right abdomen and right lower quadrant. This started yesterday and is still present. It was abrupt in onset and has been constant. The patient has had nausea. No loss of appetite, vomiting or diarrhea. No additional abdominal pain. No recent travel. Similar symptoms previously: Occasionally, milder. Recent medical care: The patient was seen recently in the office. ( saw urology about 2 weeks ago, had laser procedure done on L kidney area to break up kidney stones). REVIEW OF SYSTEMS No constipation, black stools, hematemesis, difficulty with urination or pain with urination. No urinary frequency, fever, chest pain or difficulty breathing. All systems otherwise negative, except as recorded above. PAST HISTORY See nurses notes. PROBLEMS: Hematuria. Renal Colic. Ureterolithiasis. Tendonitis. Back Injury. Sciatica. Back Pain. Headache. Hypokalemia. Atypical Chest Pain. Gastroenteritis. Diverticulitis. Ovarian Cyst. Gastroesophageal Reflux Disease. Pancreatitis. Anxiety Reaction. Depression. Asthma. Bronchitis. Lung Disease. Hypertension. UTI - Urinary Tract Infection. Abdominal Pain. Diabetes Mellitus. --18:17 Alyson Negrete. ADDITIONAL SURGERIES: Adenoidectomy. Appendectomy. Gastric bypass. Hysterectomy. Lithotripsy. Pannaectomy. Thigh lift. Tonsillectomy. --18:17 Alyson Negrete. SOCIAL HISTORY Never smoker. No alcohol use or drug use. No recent travel. Is a local resident. FAMILY HISTORY Negative. ADDITIONAL NOTES The nursing notes have been reviewed with agreement regarding the chief complaint, HPI, ROS, PMH and patient medications and allergies. PHYSICAL EXAM Vital Signs: 10/08/2016 18:14 BP: 124/75. HR: 62. RR: 16. O2 saturation: 100%. Temp: 97.6 F. Have been reviewed as normal and appear to be correct. Appearance: Alert. Oriented X3. No acute distress. Eyes: Pupils equal, round and reactive to light. Eyes normal inspection. Neck: Normal inspection. Neck supple. CVS: Normal heart rate and rhythm. Heart sounds normal. Pulses normal. Respiratory: No respiratory distress. Breath sounds normal. Chest nontender. Abdomen: Soft. Mild tenderness in the right side of the abdomen. No guarding, rebound tenderness or Elder's, obturator or psoas sign present. Bowel sounds normal. No organomegaly. No mass. Tenderness present. Back: Normal inspection. Skin: Skin warm and dry. Normal skin color. No rash. Normal skin turgor. Extremities: Extremities exhibit normal ROM. No lower extremity edema. Neuro: Oriented X 3. No motor deficit. No sensory deficit. LABS, X-RAYS, AND EKG EKG: EKG time: (1914). No acute process. No acute ischemia. Narrow-complex bradycardia (ventricular rate 57). Sinus bradycardia. Normal EKG. The study has been interpreted contemporaneously by me (and dr dubose). The EKG appears to be a good tracing. Interpretation time: 1916. Abdominal CT: . IMPRESSION: 1. No acute process. 2. Interval decrease in size of previously multicystic right ovary. 3. Nonvisualization of the appendix which is likely surgically absent. No suspicious changes in the right lower quadrant. 4. No evidence of obstructive uropathy or urinary calcifications on the current study. 5. Findings called to the emergency room. All CT scans at this facility use dose modulation, iterative reconstruction, and/or weight-based dosing when appropriate to reduce radiation dose to as low as reasonably achievable. Electronically Final signed by:Shaista Paris MD 10/08/2016 7:34:13 PM. The study was interpreted by the radiologist and discussed with the radiologist. Interpretation time: 19:38. Laboratory Tests: UA-Culture if indicated: (DEVIN: 10/08/2016 20:21) ( [facility] 10/08/2016 21:01) IP Test Result Flag Units (Reference) URINE COLOR YELLOW URINE APPEARANCE CLEAR URINE GLUCOSE NEGATIVE (NEGATIVE) URINE BILIRUBIN NEGATIVE (NEGATIVE) URINE KETONE NEGATIVE (NEGATIVE) URINE SPECIFIC GRAVITY 1.015 (1.010-1.030) URINE PH 6.0 (5.0-8.0) URINE PROTEIN NEGATIVE (NEGATIVE) URINE UROBILINOGEN 0.2 EU/dL (0.2-1.0) URINE NITRITE NEGATIVE (NEGATIVE) URINE BLOOD NEGATIVE (NEGATIVE) URINE LEUK ESTERASE NEGATIVE (NEGATIVE) Urine: (DEVIN: 10/08/2016 20:21) ( [facility] 10/08/2016 21:01) Final results Test Result Flag Units (Reference) URINE NEGATIVE CBC w Diff: (DEVIN: 10/08/2016 18:25) ( [facility] 10/08/2016 18:43) Final results Test Result Flag Units (Reference) WHITE BLOOD COUNT 9.3 K/uL (4.5-11.5) RED BLOOD COUNT 4.10 M/uL (4.00-5.20) HEMOGLOBIN 13.2 gm/dL (12.0-16.0) HEMATOCRIT 39.2 % (36.0-46.0) MEAN CELL VOLUME 96 fL (80-100) MEAN CORPUSCULAR HGB 32 pg (26-34) MEAN CORPUSCULAR HGB CONC 34 g/dL (31-37) RED CELL DISTRIBUTION WIDTH 12.9 % (11.6-14.8) PLATELET COUNT 207 K/uL (150-400) NEUTROPHIL % 51.4 % (50-75) LYMPH % 37.1 % (25-40) MONO % 6.3 % (3-14) EOSINOPHIL % 4.6 H % (0-4) BASOPHIL % 0.6 % (0-2) CMP: (DEVIN: 10/08/2016 18:25) ( [facility] 10/08/2016 19:02) IP Test Result Flag Units (Reference) GLUCOSE 170 H mg/dL (70-110) BUN 30 H mg/dL (7-18) CREATININE 0.8 mg/dL (0.6-1.3) Estimated GFR >60 mL/min Estimated GFR- >60 mL/min Note: Persistent reduction over 3 months in eGFR<60 mL/min/1.73 m2 defines CKD. Patients with eGFR values>=60 mL/min/1.73 m2 may also have CKD if evidence ofpersistent proteinuria. Additional information may be foundat [email or web address].org. SODIUM 146 H mmol/L (136-145) POTASSIUM 2.9 *L mmol/L (3.5-5.1) CRITICAL RESULTS CALLEDCalled to SAEID VELASQUEZ, 10/08/161901Were 2 patient identifiers used? YWas the result read back? Y CHLORIDE 104 mmol/L (98-107) CARBON DIOXIDE 32 mmol/L (21-32) CALCIUM 9.1 mg/dL (8.5-10.1) TOTAL PROTEIN 7.4 g/dL (6.4-8.2) ALBUMIN 3.9 g/dL (3.3-5.0) BILIRUBIN, TOTAL 0.4 mg/dL (0.0-1.0) ALKALINE PHOSPHATASE 104 U/L (46-116) AST (SGOT) 11 L U/L (15-37) ALT (SGPT) 20 U/L (12-78) LIPASE 383 U/L (73-393) AMYLASE 65 U/L (25-115) . PROGRESS AND PROCEDURES Course of Care: 10/08/2016 20:24 BP: 122/82. HR: 56. RR: 16. O2 saturation: 97%. Vital Signs: have been reviewed as normal and appear to be correct. Patient counseled in person regarding the patient's stable condition, test results and diagnosis. 2000. Differential Diagnosis: I considered acute appendicitis, biliary colic, cholecystitis, cholelithiasis, hepatitis, pancreatitis, common bile duct obstruction, cholangitis, urinary tract infection, ureterolithiasis, ovarian cyst, ovarian torsion, , pelvic abscess and viral syndrome as a possible cause of abdominal pain in this patient. This is a partial list of diagnoses considered. Above considerations are based on history, physical exam, reassessment, laboratory data and other information. Differential diagnosis was discussed with patient. Disposition: Discharged home in good and improved condition (20:07). Condition: good and stable. CLINICAL IMPRESSION Acute right lower quadrant abdominal pain of undetermined cause. INSTRUCTIONS Warnings: Further evaluation is necessary in order to recheck abnormal lab (K 2.9). It is very important to follow up with a physician. GENERAL WARNINGS: Return or contact your physician immediately if your condition worsens or changes unexpectedly, if not improving as expected, or if other problems arise. SPECIFICALLY, return if you develop pain in the abdomen or pelvis, fever, the inability to keep fluids down, blood in vomitus, blood in diarrhea, fainting, lightheadedness or vaginal bleeding. Prescription Medications: Zofran 4 mg: Take 1 orally every six hours as needed for nausea/vomiting. Dispense ten (10). No refills. Substitution is permissible. Ultram 50 mg tablets: take 1-2 orally every 6 hours as needed for pain. Dispense twenty (20). No refills. Substitution is permissible. Follow-up: Follow up with your doctor as scheduled even if well. Summary of care provided to patient. Understanding of the discharge instructions verbalized by patient. (Electronically signed by Darby Roberts A.R.N.P. 10/08/2016 21:08)
--- NOTE | 2016-10-08 20:07 | ED NURSING NOTES ---
Clinical Report - Nurses [facility] [address] [place] [address] 10/08/2016 18:06 Patient: AMOR NASCIMENTO TRIAGE Triage time 1810. Acuity: LEVEL 3. Chief Complaint: ABDOMINAL PAIN and NAUSEA. Alert. No acute distress. --18:18 Alyson Negrete 18:14 10/08/16. BP: 124/75. HR: 62. RR: 16. O2 saturation: 100%. Temp: 97.6 F. Pain level now 01/13. --18:18 Alyson Negrete. Weight: 104.3 kg. Height/Length: 66 inches. BMI: 37.1. --18:13 Alyson Negrete. Medications Hydrochlorothiazide Oral. --18:15 Alyson Negrete Metoprolol Succinate ER Oral. --18:15 Alyson Negrete Claritin Oral. --18:15 Alyson Negrete MetFORMIN HCl Oral. --18:15 Alyson Negrete CeleXA Oral. --18:15 Alyson Negrete BusPIRone HCl Oral. --18:16 Alyson Negrete Omeprazole Oral. --18:16 Alyson Negrete. Allergies Sulfa Antibiotics. --18:16 Alyson Negrete Cipro. --18:16 Alyson Negrete Neurontin. --18:16 Alyson Negrete. History Arrived by private vehicle. Historian: patient. Accompanied by friend. This started yesterday. ( RLQ pain). 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 SOCIAL HX: Never smoker. --18:18 Alyson Negrete. PROBLEMS: Hematuria. Renal Colic. Ureterolithiasis. Tendonitis. Back Injury. Sciatica. Back Pain. Headache. Hypokalemia. Atypical Chest Pain. Gastroenteritis. Diverticulitis. Ovarian Cyst. Gastroesophageal Reflux Disease. Pancreatitis. Anxiety Reaction. Depression. Asthma. Bronchitis. Lung Disease. Hypertension. UTI - Urinary Tract Infection. Abdominal Pain. Diabetes Mellitus. --18:17 Alyson Negrete. ADDITIONAL SURGERIES: Adenoidectomy. Appendectomy. Gastric bypass. Hysterectomy. Lithotripsy. Pannaectomy. Thigh lift. Tonsillectomy. --18:17 Alyson Negrete. Interventions ID band on patient. To treatment room. --18:18 Alyson Negrete. PHYSICAL ASSESSMENT Ambulatory to room. GENERAL / NEURO / PSYCH: Alert. Oriented X 4. Appears in no acute distress. HEENT: Mucous membranes are pink. RESPIRATORY: Respirations not labored. Breath sounds within normal limits. CVS: Normal sinus rhythm noted. Capillary refill less than 2 seconds. GI / : Obesity. Abdominal tenderness. Bowel sounds within normal limits. SKIN: Skin is warm and dry. --18:18 Alyson Negrete. NURSING PROGRESS NOTES Reassurance given. Two patient identifiers checked. Call light placed in reach. Bed placed in lowest position. Brakes of bed on. Patient ready for evaluation- chart flagged. --18:18 Alyson Negrete 18:27 10/08/2016 Site #1 started via IV in the left antecubital space with an 20g angiocath, with aseptic technique and good blood return; one attempt. Blood drawn: rainbow set. Labeled in the presence of the patient and sent to the lab. Saline lock flushed with 10 mL saline. --18:27 Alyson Negrete 18:37 10/08/2016 Toradol IVP 30 mg given. via site #1. Allergies verified and confirmed 5 rights. IV patency established. IV site checked: no pain, redness, or swelling. IV flushed thoroughly pre- and post-medication administration. IVP given by RN. --18:37 Alyson Negrete 18:37 10/08/2016 Zofran (Ondansetron HCl) IVP 4 mg given. via site #1. Allergies verified and confirmed 5 rights. IV patency established. IV site checked: no pain, redness, or swelling. IV flushed thoroughly pre- and post-medication administration. IVP given by RN. --18:37 Alyson Negrete 19:10 10/08/2016 K-DUR (Potassium Chloride Judith ER) PO 60 meq given. Allergies verified and confirmed 5 rights. --19:10 Alyson Negrete EKG time: (1914). EKG was ordered, performed by a tech and shown to the ED physician. --19:14 Nkechi Buckley. DISPOSITION / DISCHARGE 20:24 10/08/2016 Site #1 removed upon discharge. Pressure dressing applied. --20:24 Alyson Negrete Departure time: 2019. Condition at departure: unchanged and stable. No learning barriers present. Discharge instructions provided and reviewed with the patient. Patient verbalized understanding. Written instructions provided in Macedonian. The patient was discharged by the nurse practitioner. She was discharged home and accompanied by family. She left the Emergency Department ambulatory and via private vehicle. Family member driving. --20:24 Alyson Negrete 20:24 10/08/16. BP: 122/82. HR: 56. RR: 16. O2 saturation: 97%. Pain level now 7/10. --20:25 Alyson Negrete. Locked/Released at 10/08/2016 20:25 by Alyson Negrete,
--- NOTE | 2016-10-08 20:07 | ED ORDER SUMMARY ---
..... Patient: AMOR NASCIMENTO OrderSheet [facility] VisitID: [id number] [place] [address] 41y, F Registration Date/Time: 10/08/2016 ORDER SHEET Weight: 104.3 kg Allergies: Sulfa Antibiotics, Cipro, Neurontin GENERAL ORDERS: CBC w Diff Urgent (18:20 10/08/2016 E[facility] per protocol) (18:27 [facility]) CMP Urgent (18:20 10/08/2016 E[facility] per protocol) (18:27 [facility]) UA-Culture if indicated Urgent (18:20 10/08/2016 [facility] per protocol) ([facility] Amylase Urgent (18:20 10/08/2016 E[facility] per protocol) (18:27 [facility]) Lipase Urgent (18:10/08/2016 [facility] per protocol) (18:27 [facility]) Urine Urgent (18:20 10/08/2016 [facility] per protocol) ([facility]ck 18:46 [facility]) CT Abd/Pel w Cont (No) (pending) Urgent (18:32 10/08/2016 HBivens A.R.N.P.) (Ack 18:46 [facility]) (19:26 [facility]) EKG - ER Stat (19:04 10/08/2016 HBivens A.R.N.P.) (19:14 [facility] MEDICATION ORDERS: K-Dur PO 60 meq (Do not crush or chew, NOW) (19:03 10/08/2016 HBivens A.R.N.P.) (19:10 [facility]) IV FLUIDS: IV Saline Lock (18:20 10/08/2016 EBonham per protocol) (18:27 [facility]) Toradol IV 30 mg (NOW) (18:32 10/08/2016 HBivens A.R.N.P.) (18:37 [facility]) Zofran IV 4 mg (NOW) (18:32 10/08/2016 HBivens A.R.N.P.) (18:37 E[facility]) ORDER SHEET NOTES: [Electronically signed by Alyson Negrete (:10/08/2016)] [Electronically signed by Darby Roberts (21:08 10/08/2016)] [Electronically locked/signed by Alyson Negrete (:10/08/2016)]
--- NOTE | 2016-10-08 21:08 | ED MAR SUMMARY ---
..... Medication Administration Record [facility] [address] [place] [address] Patient: AMOR NASCIMENTO Visit ID: [id number] 41y, F Weight: 104.3 kg Height/Length: 66 in BMI: 37.1 ALLERGIES: Neurontin, Cipro, Sulfa Antibiotics Given 18:37 10/08/2016 Alyson Negrete, Medication Administered: TORADOL [IVP], Dose: 30 mg IVP, Site: #1 left AC. Medication Ordered: Toradol IV 30 mg (NOW). Given 18:37 10/08/2016 Alyson Negrete, Medication Administered: ZOFRAN [IVP] (ONDANSETRON HCL), Dose: 4 mg IVP, Site: #1 left AC. Medication Ordered: Zofran IV 4 mg (NOW). Given 19:10 10/08/2016 Alyson Negrete, Medication Administered: K-DUR [PO] (POTASSIUM CHLORIDE SHANNON ER), Dose: 60 meq PO. Medication Ordered: K-Dur PO 60 meq (Do not crush or chew, NOW).
--- NOTE | 2016-10-08 21:08 | ED MED RECONCILIATION SUMMARY ---
Patient: AMOR NASCIMENTO Medication Reconciliation Report [facility] VisitID: [id number] [address] [place] [address] 41y, F Registration Date/Time: 10/08/2016 Weight: 104.3 kg Height/Length: 66 in. BMI: 37.1 ALLERGIES: Cipro, Neurontin, Sulfa Antibiotics The patient's Home Medications are listed below: THE FOLLOWING MEDICATIONS NEED TO BE RECONCILED: BusPIRone HCl Oral CeleXA Oral Claritin Oral Hydrochlorothiazide Oral MetFORMIN HCl Oral Metoprolol Succinate ER Oral Omeprazole Oral The source(s) of the original Home Medication information: Not obtained. The following Medications were given to the patient in the Emergency Department: Toradol [IVP] IVP 30 mg, administered: 10/08/2016 6:37:00 PM Zofran [IVP] IVP 4 mg, administered: 10/08/2016 6:37:00 PM K-DUR [PO] PO 60 meq, administered: 10/08/2016 7:10:00 PM The following Medications were prescribed to the patient: Zofran 4 mg: Take 1 orally every six hours as needed for nausea/vomiting. Dispense ten (10). No refills. Substitution is permissible. -- Darby Roberts, A.R.N.P. Ultram 50 mg tablets: take 1-2 orally every 6 hours as needed for pain. Dispense twenty (20). No refills. Substitution is permissible. -- Darby Roberts A.R.N.P.
--- NOTE | 2016-10-08 21:08 | ED MAR SUMMARY ---
..... Medication Administration Record [facility] [address] [place] [address] Patient: AOMR NASCIMENTO Visit ID: [id number] 41y, F Weight: 104.3 kg Height/Length: 66 in BMI: 37.1 ALLERGIES: Neurontin, Cipro, Sulfa Antibiotics Given 18:37 10/08/2016 Alyson Negrete, Medication Administered: TORADOL [IVP], Dose: 30 mg IVP, Site: #1 left AC. Medication Ordered: Toradol IV 30 mg (NOW). Given 18:37 10/08/2016 Alyson Negrete, Medication Administered: ZOFRAN [IVP] (ONDANSETRON HCL), Dose: 4 mg IVP, Site: #1 left AC. Medication Ordered: Zofran IV 4 mg (NOW). Given 19:10 10/08/2016 Alyson Negrete, Medication Administered: K-DUR [PO] (POTASSIUM CHLORIDE SHANNON ER), Dose: 60 meq PO. Medication Ordered: K-Dur PO 60 meq (Do not crush or chew, NOW).
--- NOTE | 2016-10-08 21:08 | ED DISCHARGE INSTRUCTIONS ---
Patient: AMOR NASCIMENTO General Instructions [facility] VisitID: [id number] [place] [address] 41y, F Registration Date/Time: 10/08/2016 Acute right lower quadrant abdominal pain of undetermined cause. INSTRUCTIONS Warnings: Further evaluation is necessary in order to recheck abnormal lab (K 2.9). It is very important to follow up with a physician. GENERAL WARNINGS: Return or contact your physician immediately if your condition worsens or changes unexpectedly, if not improving as expected, or if other problems arise. SPECIFICALLY, return if you develop pain in the abdomen or pelvis, fever, the inability to keep fluids down, blood in vomitus, blood in diarrhea, fainting, lightheadedness or vaginal bleeding. Prescription Medications: Zofran 4 mg: Take 1 orally every six hours as needed for nausea/vomiting. Dispense ten (10). No refills. Substitution is permissible. Ultram 50 mg tablets: take 1-2 orally every 6 hours as needed for pain. Dispense twenty (20). No refills. Substitution is permissible. Follow-up: Follow up with your doctor as scheduled even if well. Summary of care provided to patient. Understanding of the discharge instructions verbalized by patient. ADDITIONAL INFORMATION Abdominal Pain, Unknown Cause (Female) The exact cause of your abdominal (stomach) pain is not certain. This does not mean that this is something to worry about, or the right tests were not done. Everyone likes to know the exact cause of the problem, but sometimes with abdominal pain, there is no clear-cut cause, and this could be a good thing. The good news is that your symptoms can be treated, and you will feel better. Your condition does not seem serious now; however, sometimes the signs of a serious problem may take more time to appear. For this reason,it is important for you to watch for any new symptoms, problems,or worsening of your condition. Over the next few days, the abdominal pain may come and go, or be continuous. Other common symptoms can include nausea and vomiting. Sometimes it can be difficult to tell if you feel nauseous, you may just feel bad and not associate that feeling with nausea. Constipation, diarrhea, and a fever may go along with the pain. The pain may continue even if treated correctly over the following days. Depending on how things go, sometimes the cause can become clear and may require further or different treatment. Additional evaluations, medications, or tests may be needed. Home care Your health care provider may prescribe medications for pain, symptoms, or an infection. Follow the health care provider's instructions for taking these medications. General care Rest until your next exam. No strenuous activities. Try to find positions that ease discomfort. A small pillow placed on the abdomen may help relieve pain. Something warm on your abdomen (such as a heating pad) may help, but be careful not to burn yourself. Diet Do not force yourself to eat, especially if having cramps, vomiting, or diarrhea. Water is important so you do not get dehydrated. Soup may also be good. Sports drinks may also help, especially if they are not too acidic. Make sure you don't drink sugary drinks as this can make things worse. Take liquids in small amounts. Do not guzzle them. Caffeine sometimes makes the pain and cramping worse. Avoid dairy products if you have vomiting or diarrhea. Don't eat large amounts at a time. Wait a few minutes between bites. Eat a diet low in fiber (called a low-residue diet). Foods allowed include refined breads, white rice, fruit and vegetable juices without pulp, tender meats. These foods will pass more easily through the intestine. Avoid whole-grain foods, whole fruits and vegetables, meats, seeds and nuts, fried or fatty foods, dairy, alcohol and spicy foods until your symptoms go away. Follow-up care Follow up with your health care provider as instructed, or if your pain does not begin to improve in the next 24 hours. When to seek medical care Seek prompt medical care if any of the following occur: Pain gets worse or moves to the right lower abdomen New or worsening vomiting or diarrhea Swelling of the abdomen Unable to pass stool for more than three days Fever of 100.4F (38C) or higher, or as directed by your healthcare provider. Blood in vomit or bowel movements (dark red or black color) Jaundice (yellow color of eyes and skin) Weakness, dizziness Chest, arm, back, neck or jaw pain Unexpected vaginal bleeding or missed period Call 911 Call emergency services if any of the following occur: Trouble breathing Confusion Fainting or loss of consciousness Rapid heart rate Seizure Ondansetron Hydrochloride Oral tablet What is this medicine? ONDANSETRON (on SUMI se keo) is used to treat nausea and vomiting caused by chemotherapy. It is also used to prevent or treat nausea and vomiting after surgery. How should I use this medicine? Take this medicine by mouth with a glass of water. Follow the directions on your prescription label. Take your doses at regular intervals. Do not take your medicine more often than directed. Talk to your sales representative facility services regarding the use of this medicine in children. Special care may be needed. What side effects may I notice from receiving this medicine? Side effects that you should report to your doctor or health farm or ranch animal caretaker as soon as possible: allergic reactions like skin rash, itching or hives, swelling of the face, lips or tongue breathing problems dizziness fast or irregular heartbeat feeling faint or lightheaded, falls fever and chills swelling of the hands or feet tightness in the chest Side effects that usually do not require medical attention (report to your doctor or health farm or ranch animal caretaker if they continue or are bothersome): constipation or diarrhea headache What may interact with this medicine? Do not take this medicine with any of the following medications: -apomorphine -cisapride -dofetilide -dronedarone -pimozide -thioridazine -ziprasidone This medicine may also interact with the following medications: -carbamazepine -phenytoin -rifampicin -tramadol -other medicines that prolong the QT interval (cause an abnormal heart rhythm) What if I miss a dose? If you miss a dose, take it as soon as you can. If it is almost time for your next dose, take only that dose. Do not take double or extra doses. Where should I keep my medicine? Keep out of the reach of children. Store between 2 and 30 degrees C (36 and 86 degrees F). Throw away any unused medicine after the expiration date. What should I tell my health care provider before I take this medicine? They need to know if you have any of these conditions: heart disease history of irregular heartbeat liver disease low levels of magnesium or potassium in the blood an unusual or allergic reaction to ondansetron, granisetron, other medicines, foods, dyes, or preservatives or trying to get breast-feeding What should I watch for while using this medicine? Check with your doctor or health farm or ranch animal caretaker right away if you have any sign of an allergic reaction. Tramadol Hydrochloride Oral tablet What is this medicine? TRAMADOL (TRA ma dole) is a pain reliever. It is used to treat moderate to severe pain in adults. How should I use this medicine? Take this medicine by mouth with a full glass of water. Follow the directions on the prescription label. If the medicine upsets your stomach, take it with food or milk. Do not take more medicine than you are told to take. Talk to your sales representative facility services regarding the use of this medicine in children. Special care may be needed. What side effects may I notice from receiving this medicine? Side effects that you should report to your doctor or health farm or ranch animal caretaker as soon as possible: allergic reactions like skin rash, itching or hives, swelling of the face, lips, or tongue breathing difficulties, wheezing confusion itching light headedness or fainting spells redness, blistering, peeling or loosening of the skin, including inside the mouth seizures Side effects that usually do not require medical attention (report to your doctor or health farm or ranch animal caretaker if they continue or are bothersome): constipation dizziness drowsiness headache nausea, vomiting What may interact with this medicine? Do not take this medicine with any of the following medications: MAOIs like Carbex, Eldepryl, Marplan, Nardil, and Parnate This medicine may also interact with the following medications: alcohol or medicines that contain alcohol antihistamines benzodiazepines bupropion carbamazepine or oxcarbazepine clozapine cyclobenzaprine digoxin furazolidone linezolid medicines for depression, anxiety, or psychotic disturbances medicines for migraine headache like almotriptan, eletriptan, frovatriptan, naratriptan, rizatriptan, sumatriptan, zolmitriptan medicines for pain like pentazocine, buprenorphine, butorphanol, meperidine, nalbuphine, and propoxyphene medicines for sleep muscle relaxants naltrexone phenobarbital phenothiazines like perphenazine, thioridazine, chlorpromazine, mesoridazine, fluphenazine, prochlorperazine, promazine, and trifluoperazine procarbazine warfarin What if I miss a dose? If you miss a dose, take it as soon as you can. If it is almost time for your next dose, take only that dose. Do not take double or extra doses. Where should I keep my medicine? Keep out of the reach of children. Store at room temperature between 15 and 30 degrees C (59 and 86 degrees F). Keep container tightly closed. Throw away any unused medicine after the expiration date. What should I tell my health care provider before I take this medicine? They need to know if you have any of these conditions: brain tumor depression drug abuse or addiction head injury if you frequently drink alcohol containing drinks kidney disease or trouble passing urine liver disease lung disease, asthma, or breathing problems seizures or epilepsy suicidal thoughts, plans, or attempt; a previous suicide attempt by you or a family member an unusual or allergic reaction to tramadol, codeine, other medicines, foods, dyes, or preservatives or trying to get breast-feeding What should I watch for while using this medicine? Tell your doctor or health farm or ranch animal caretaker if your pain does not go away, if it gets worse, or if you have new or a different type of pain. You may develop tolerance to the medicine. Tolerance means that you will need a higher dose of the medicine for pain relief. Tolerance is normal and is expected if you take this medicine for a long time. Do not suddenly stop taking your medicine because you may develop a severe reaction. Your body becomes used to the medicine. This does NOT mean you are addicted. Addiction is a behavior related to getting and using a drug for a non-medical reason. If you have pain, you have a medical reason to take pain medicine. Your doctor will tell you how much medicine to take. If your doctor wants you to stop the medicine, the dose will be slowly lowered over time to avoid any side effects. You may get drowsy or dizzy. Do not drive, use machinery, or do anything that needs mental alertness until you know how this medicine affects you. Do not stand or sit up quickly, especially if you are an older patient. This reduces the risk of dizzy or fainting spells. Alcohol can increase or decrease the effects of this medicine. Avoid alcoholic drinks. You may have constipation. Try to have a bowel movement at least every 2 to 3 days. If you do not have a bowel movement for 3 days, call your doctor or health farm or ranch animal caretaker. Your mouth may get dry. Chewing sugarless gum or sucking hard candy, and drinking plenty of water may help. Contact your doctor if the problem does not go away or is severe. You have been given the following additional information: Abdominal Pain, Unknown Cause, (Female) Ondansetron Hydrochloride Oral tablet Tramadol Hydrochloride Oral tablet (Electronically signed by Darby Roberts A.R.N.P. 10/08/2016 21:08)
--- NOTE | 2016-10-08 21:08 | ED MED RECONCILIATION SUMMARY ---
Patient: AMOR NASCIMENTO Medication Reconciliation Report [facility] VisitID: [id number] [address] [place] [address] 41y, F Registration Date/Time: 10/08/2016 Weight: 104.3 kg Height/Length: 66 in. BMI: 37.1 ALLERGIES: Cipro, Neurontin, Sulfa Antibiotics The patient's Home Medications are listed below: THE FOLLOWING MEDICATIONS NEED TO BE RECONCILED: BusPIRone HCl Oral CeleXA Oral Claritin Oral Hydrochlorothiazide Oral MetFORMIN HCl Oral Metoprolol Succinate ER Oral Omeprazole Oral The source(s) of the original Home Medication information: Not obtained. The following Medications were given to the patient in the Emergency Department: Toradol [IVP] IVP 30 mg, administered: 10/08/2016 6:37:00 PM Zofran [IVP] IVP 4 mg, administered: 10/08/2016 6:37:00 PM K-DUR [PO] PO 60 meq, administered: 10/08/2016 7:10:00 PM The following Medications were prescribed to the patient: Zofran 4 mg: Take 1 orally every six hours as needed for nausea/vomiting. Dispense ten (10). No refills. Substitution is permissible. -- Darby Roberts, A.R.N.P. Ultram 50 mg tablets: take 1-2 orally every 6 hours as needed for pain. Dispense twenty (20). No refills. Substitution is permissible. -- Darby Roberts A.R.N.P.
== END 2016-10-08 20:20 | disposition home or self-care (01) ==
LOC: ED SRH 18:06
DX: R10.31 Right lower quadrant pain (principal); E11.9 Type 2 diabetes mellitus without complications; I10 Essential (primary) hypertension; Z87.442 Personal history of urinary calculi; Z79.84 Long term (current) use of oral hypoglycemic drugs; Z79.899 Other long term (current) drug therapy; Z88.1 Allergy status to other antibiotic agents; Z88.8 Allergy status to other drugs, medicaments and biological substances
CPT/HCPCS: 90004; 90100; 92235; 92530; 92720; 93070; 95059